=== PATIENT | female | born 1995 | race Caucasian/White ===

== ENCOUNTER 2019-11-25 11:18 | Emergency (ER) | payer BC, SELFPAY ==
--- NOTE | ~2019-11-25 | US_ITS ---
US abdomen complete EXAMINATION: US Abdomen Complete INDICATION: Status post fall. Patient is . PROCEDURE: Realtime High Resolution abdomen ultrasound. COMPARISON: No prior studies for comparison FINDINGS: Gallbladder within normal limits. No gallstones, pericholecystic fluid, gallbladder wall t hickening or biliary dilatation. Common bile duct measures 4 mm. Liver echotexture within normal limits without focal mass. Pancreas within normal limits. Pancreati c tail is obscured by bowel gas. Spleen is unremarkeable. Renal echotexture is within normal limits bilaterally without hydronephrosis, contour deforming mass or renal stone. Right kidney measures 10.8 cm. Left kidney measures 11.5 cm. Visualized aspects of the aorta and IVC are within normal limits. Portal vein is patent. No sonograph ic Wells's sign indicated by the technologist. IMPRESSION: 1: Normal abdominal ultrasound. Reviewed, dictated and finalized at location B.
--- NOTE | ~2019-11-25 | US_ITS ---
US OB transvaginal 11/25/2019 15:00 Indication: Status post fall. Confirm . Procedure: High-resolution Limited early obstetrical ultrasound using transabdominal and transvaginal technique Comparison: 06/09/2017 Findings: Uterus measures 9 x 7.4 x 4.4 cm. No intrauterine is identified. Endometrium ivania ures 12 mm. There are follicular changes in the ovaries. No free fluid. Right ovary measures 2.7 x 1. 3 x 1.3 cm. Left ovary measures 2.6 x 2.6 x 3.3 cm. Impression: 1: Unremarkable pelvic ultrasound. No evidence for intrauterine . If there is a positive pre gnancy test, considerations include very early intrauterine , failed and ectopic p regnancy. Recommend follow-up with serial quantitative beta-hCG levels and ultrasound as clinically i ndicated. Reviewed, dictated and finalized at location B. Impression: 1: Unremarkable pelvic ultrasound. No evidence for intrauterine . If t here is a positive test, considerations include very early intrauteri ne , failed and ectopic . Recommend follow-up with serial quantitative beta-hCG levels and ultrasound as clinically indicated.
[2019-11-25 11:23] VITALS: BP 123/72; PULSE 76; RESP 18; TEMP 36.1; O2SAT 99
--- NOTE | 2019-11-25 11:41 | PC.NURSE ---
PT AMBULATED TO BATHROOM WITHOUT ASSISTANCE TO PROVIDE UA.
[2019-11-25 12:09] LABS: Add Urine Microscopic? YES; Appearance Urine Cloudy (Clear); Bacteria Urine Trace /hpf; Bilirubin Urine Negative (Negative); Blood Urine Negative (Negative); Color Urine Yellow (Yellow); Glucose Urine UA Negative (Negative); Ketones Urine Trace mg/dL (Negative); Leukocyte Esterase Ur 1+ LEU/UL (Negative); Mucus Urine Rare /lpf; Nitrate Urine Negative (Negative); Protein Urine Negative (Negative); RBC Urine 0-2 /hpf (0-2); Specific Grav Ur 1.018 (1.001-1.035); Squamous Epithelial Cell Urine Many /hpf (Few); WBC Urine 21-30 /hpf
--- NOTE | 2019-11-25 13:23 | PC.NURSE ---
TECHS ATTEMPTED BLOOD DRAW WITHOUT SUCCESS. PT NOW IN ULTRASOUND, WILL ATTEMPT LAB DRAW UPON RETURN.
--- NOTE | 2019-11-25 13:48 | PC.NURSE ---
PT STILL IN ULTRASOUND AT THIS TIME, WILL OBTAIN BLOOD UPON HER RETURN.
--- NOTE | 2019-11-25 14:16 | PC.NURSE ---
STILL IN ULTRASOUND
--- NOTE | 2019-11-25 14:39 | PC.NURSE ---
PT STILL IN ULTRASOUND
--- NOTE | 2019-11-25 14:52 | PC.NURSE ---
I STUCK PT TWICE FOR BLOOD DRAW ATTEMPT, WITHOUT SUCCESS, SERAFIN LAINEZ AT BEDSIDE TO ATTEMPT.
--- NOTE | 2019-11-25 15:00 | PC.NURSE ---
PT REFUSING IV UNTIL MEDICATION IS NECESSARY
[2019-11-25 15:06] LABS: Basophils Percent Auto 0.3 % (0.2-1.2); Eosinophils Absolute Auto 0.1 K/mm3 (0-0.3); Hematocrit 40.2 % (37.0-47.0); Hemoglobin 13.7 g/dL (12.0-15.0); Immature Granulocyte Absolute 0.03 K/mm3 (0.00-0.031); Immature Granulocyte Percent A 0.3 % (0-0.5); Lymphocytes Absolute Auto 1.98 K/mm3 (0.9-3.2); Lymphocytes Percent Auto 21.9 % (18.3-44.2); Mean Corpuscular HGB Conc 34.1 g/dl (32-36); Mean Corpuscular Hemoglobin 30.7 pg (26-34); Mean Corpuscular Volume 90.1 fl (80-100); Mean Platelet Volume 11.4 fl (7.4-10.4); Monocytes Absolute Auto 0.7 K/mm3 (0.1-0.6); Monocytes Percent Auto 7.4 % (2.6-8.5); Neutrophils Absolute Auto 6.2 K/mm3 (1.3-6.7); Neutrophils Percent Auto 69.1 % (45.5-73.1); Platelet Count Result 179 k/mm3 (150-375); Red Blood Count 4.46 M/mm3 (4.2-5.4); Red Cell Distribution Width 13.1 % (11.5-14.5)
[2019-11-25 15:07] VITALS: BP 127/75; PULSE 78; RESP 16; O2SAT 100
[2019-11-25 15:18] LABS: Alanine Aminotransferase 25 U/L (4-35); Albumin Level 4.1 g/dL (3.5-5.1); Alkaline Phosphatase 43 U/L (38-126); Anion Gap 8 mmol/L (8-16); Aspartate Amino Transferase 26 U/L (14-36); Bilirubin,Total 0.3 mg/dL (0.2-1.3); Blood Urea Nitrogen 7 mg/dL (7-17); Calcium 8.6 mg/dL (8.4-10.2); Carbon Dioxide 21 mmol/L (22-30); Chloride 107 mmol/L (98-107); Estimated CRCL calculation 125 ml/min; Estimated Glomerular Filt Rate > 60; Glucose 99 mg/dL (65-105); Potassium 3.7 mmol/L (3.4-5.0); Sodium 136 mmol/L (137-145)
--- NOTE | 2019-11-25 15:26 | ED.FALL ---
HPI - Fall General Chief Complaint: Fall Stated Complaint: fell down stairs/possibly pregant/cramping Time Seen by Provider: 11/25/19 11:37 Source: patient Mode of arrival: ambulatory Limitations: no limitations History of Present Illness HPI Narrative: Patient with positive home test presents after tripping while walking her dog earlier falling down 8 steps. Patient states that she landed on her abdomen and has diffuse abdominal discomfort along with pelvic cramping. Patient denies any vaginal bleeding issues with urinating but states that she had a positive home test and is unsure how far along she may be due to abnormal menstrual periods. Patient denies head impact, headache, neck pain, back pain, loss of consciousness, nausea, vomiting, diarrhea, chest pain, shortness of breath. Patient denies any other areas of discomfort or symptoms. Patient states that she is G7, P4. She reports 4 miscarriages and 3 live births. Related Data Allergies Allergy/AdvReac Type Severity Reaction Status Date / Time codeine Allergy Severe Dyspnea / Verified 11/25/19 11:26 SOB Review of Systems Review of Systems: Narrative: CONSTITUTIONAL: Denies fever, chills, or sweats. EYES: Denies visual changes, redness, or discharge. ENT: Denies rhinorrhea, congestion, sore throat, or otalgia. CARDIOVASCULAR: Denies chest pain, palpitations, or edema. RESPIRATORY: Denies cough or dyspnea. GASTROINTESTINAL: Reports abdominal pain, denies nausea, vomiting, or diarrhea. GENITOURINARY: Denies dysuria or hematuria. SKIN: Denies rash or itching. MUSCULOSKELETAL: Denies back pain, joint pain, or myalgia. NEUROLOGIC: Denies headache, numbness, dizziness, or weakness. PSYCHIATRIC: Denies anxiety or depression. [facility] Past Medical History Medical History (Updated 11/25/19 @ 15:37 by Deborah Roy PA-C) Epilepsy with status epilepticus, not intractable Family History Family History (Updated 12/12/18 @ 15:06 by DOCTOR UNKNOWN) Other Family history of malignant neoplasm of breast Social History Social History Gender identity (if verbalized by the patient): Female Exam Narrative: Exam Narrative: GENERAL: Well-appearing, well-nourished, and in no acute distress. HEAD: Normocephalic, atraumatic. No outward signs of injury noted. EYES: PERRLA and EOMI. ENT: Nares clear, no rhinorrhea or epistaxis. Mucous membranes moist. Oropharynx without tonsillar hypertrophy exudate or other lesions. Bilateral TMs pearly oconnor nonbulging NECK: Supple. No adenopathy or masses. Range of motion intact without pain or signs of injury CHEST: Clear to auscultation. No respiratory distress. No wheezes rales or rhonchi HEART: Regular rate and rhythm. ABDOMEN: Soft, diffusely tender to abdomen especially lower abdominal area over bladder. nondistended, normal active bowel sounds. No abrasions or ecchymosis noted. EXTREMITIES: Normal range of motion. No edema. SKIN: Warm, dry, no rash. NEURO: No focal deficits. Alert and oriented x3. PSYCH: Normal mood and affect. Course Vital Signs Vital signs: Vital Signs Temperature 97.0 F L 11/25/19 11:23 Pulse Rate 76 11/25/19 11:23 Respiratory Rate 18 11/25/19 11:23 Blood Pressure 123/72 11/25/19 11:23 Pulse Oximetry 99 11/25/19 11:23 Temperature 97.0 F L 11/25/19 11:23 Pulse Rate 75 11/25/19 15:39 Respiratory Rate 16 11/25/19 15:39 Blood Pressure 119/68 11/25/19 15:39 Pulse Oximetry 100 11/25/19 15:39 MDM - Fall MDM Narrative Medical decision making narrative: Patient not had any vaginal bleeding and has urinated without difficulty. Patient does not have any signs of discomfort or distress while being in the ER. Patient noted to show positive for however her ultrasound did not show which could mean early or failed . Patient instructed to follow-up with her KNITTER MACHINE for repeat beta hCGs and follow-up ultrasound to determine
[2019-11-25 15:39] VITALS: BP 119/68; PULSE 75; RESP 16; O2SAT 100
== END 2019-11-25 15:39 | disposition home or self-care (01) ==
PROVIDERS: Physician Assistant; Emergency Provider Emergency Medicine; PCP Internal Medicine
DX: O23.41 Unspecified infection of urinary tract in pregnancy, first trimester (principal); W10.9XXA Fall (on) (from) unspecified stairs and steps, initial encounter; Z3A.00 Weeks of gestation of pregnancy not specified
CPT/HCPCS: 36415; 76700; 76817; 80053; 81001; 81025; 84702; 85025; 87077; 87086; 87088; 99284

== ENCOUNTER 2020-02-21 20:11 | Emergency (ER) | payer BC, SELFPAY ==
[2020-02-21 20:14] VITALS: BP 114/54; PULSE 97; RESP 17; TEMP 36.4; O2SAT 98
--- NOTE | 2020-02-21 20:22 | ED.SEIZURE ---
HPI - Seizure General Chief Complaint: Seizure Stated Complaint: seizure/17 weeks Time Seen by Provider: 02/21/20 20:22 Source: patient and EMS Mode of arrival: EMS Limitations: no limitations History of Present Illness HPI Narrative: Patient is a 24-year-old female, TPAL [id number], who presents for evaluation of seizure. Patient has a history of tonic-clonic seizures, has followed with Dr. Aj with neurology typically is on Depakote but discontinued it when she became . Patient is currently 17 weeks , this has otherwise been uncomplicated however she has not been able to establish care with a maternal- medicine doctor. In the past she has seen MFM at [place]. Patient reports that she had a tonic-clonic seizure while working this evening. There was urinary incontinence with the seizure, no tongue biting. Patient was postictal but is currently back to baseline. She reports mild, lower abdominal cramping. She denies vaginal bleeding or loss of fluids. Patient is currently not taking any antiepileptic medications. Patient has [facility] at [facility] in [place]. Related Data Allergies Allergy/AdvReac Type Severity Reaction Status Date / Time codeine Allergy Severe Dyspnea / Verified 02/21/20 20:14 SOB Review of Systems Review of Systems: Narrative: CONSTITUTIONAL: Denies fever, chills, or sweats. EYES: Denies visual changes ENT: Denies rhinorrhea, congestion, sore throat, or otalgia. CARDIOVASCULAR: Denies chest pain, palpitations, or edema. RESPIRATORY: Denies cough or dyspnea. GASTROINTESTINAL: Reports lower abdominal pain, denies nausea or vomiting GENITOURINARY: Denies dysuria or hematuria. SKIN: Denies rash or itching. MUSCULOSKELETAL: Denies back pain, joint pain, or myalgia. NEUROLOGIC: Denies headache, numbness, or weakness. [facility] Past Medical History Medical History (Updated 02/21/20 @ 23:23 by Alona Kaiser MD) Epilepsy with status epilepticus, not intractable Miscarriage Post-traumatic stress disorder, chronic Family History Family History (Updated 12/12/18 @ 15:06 by DOCTOR UNKNOWN) Other Family history of malignant neoplasm of breast Social History Social History (Updated 02/21/20 @ 20:44 by Alona Kaiser MD) Smoking status: Never smoker Alcohol intake: never Substance use: never Living arrangements: with family Gender identity (if verbalized by the patient): Female Exam Narrative: Exam Narrative: GENERAL: Awake, alert, conversant HEAD: Normocephalic, atraumatic. EYES: PERRLA and EOMI. ENT: Nares clear, no rhinorrhea or epistaxis. Mucous membranes moist. No tongue laceration. NECK: Supple. CHEST: No respiratory distress, breathing even and non labored HEART: Regular rate, sinus rhythm ABDOMEN:Non distended, non tender EXTREMITIES: Normal range of motion. No edema. SKIN: Warm, dry, no rash. NEURO:No focal deficits. Alert and oriented x3 Course Vital Signs Vital signs: Vital Signs Temperature 36.4 C 02/21/20 20:14 Pulse Rate 97 02/21/20 20:14 Respiratory Rate 17 02/21/20 20:14 Blood Pressure 114/54 L 02/21/20 20:14 Pulse Oximetry 98 02/21/20 20:14 Temperature 36.4 C 02/21/20 20:14 Pulse Rate 62 02/21/20 23:19 Respiratory Rate 18 02/21/20 23:19 Blood Pressure 100/55 L 02/21/20 23:19 Pulse Oximetry 100 02/21/20 23:19 MDM - Seizure MDM Narrative Medical decision making narrative: Patient has a history of known seizure disorder presented after tonic-clonic seizure and is back to baseline, alert and oriented without any neurological deficits or evidence of trauma on exam. Patient feels well. She was reporting some mild lower abdominal pain without nausea, vomiting, no loss of fluids or vaginal bleeding. Patient does not feel movement at this point given she is only 17 weeks. No vaginal discharge. Patient had discontinued her antiepileptic of Depakote given pregnan
--- NOTE | 2020-02-21 20:23 | ECG_ITS ---
Measurements Intervals [place] Rate: 79 P: 127 AK: 164 QRS: 120 QRSD: 77 T: 145 QT: 371 QTc: 427 Interpretive Statements SINUS RHYTHM ARM LEADS REVERSED MINIMAL Q WAVES- ANTEROLAT/INF LEADS BASELINE ARTIFACT- V5 ATYPICAL ECG Electronically Signed On 02-22-2020 9:19:10 FOOD SERVICE ORDER CLERK by Javier Patrick D.O.
[2020-02-21 20:42] LABS: Basophils Percent Auto 0.2 % (0.2-1.2); Eosinophils Absolute Auto 0.1 K/mm3 (0-0.3); Eosinophils Percent Auto 0.9 % (0-4.4); Hematocrit 38.2 % (37.0-47.0); Hemoglobin 13.1 g/dL (12.0-15.0); Immature Granulocyte Absolute 0.03 K/mm3 (0.00-0.031); Immature Granulocyte Percent A 0.4 % (0-0.5); Lymphocytes Absolute Auto 1.73 K/mm3 (0.9-3.2); Lymphocytes Percent Auto 20.5 % (18.3-44.2); Mean Corpuscular HGB Conc 34.3 g/dl (32-36); Mean Corpuscular Hemoglobin 30.3 pg (26-34); Mean Corpuscular Volume 88.2 fl (80-100); Mean Platelet Volume 11.4 fl (7.4-10.4); Monocytes Absolute Auto 0.5 K/mm3 (0.1-0.6); Monocytes Percent Auto 6.3 % (2.6-8.5); Neutrophils Percent Auto 71.7 % (45.5-73.1); Platelet Count Result 163 k/mm3 (150-375); Red Blood Count 4.33 M/mm3 (4.2-5.4); Red Cell Distribution Width 12.9 % (11.5-14.5); White Blood Count 8.4 K/mm3 (4.5-10.0)
[2020-02-21 20:55] LABS: Alanine Aminotransferase 17 U/L (4-35); Albumin Level 4.1 g/dL (3.5-5.1); Alkaline Phosphatase 44 U/L (38-126); Anion Gap 14 mmol/L (8-16); Aspartate Amino Transferase 23 U/L (14-36); Bilirubin,Total 0.3 mg/dL (0.2-1.3); Blood Urea Nitrogen 8 mg/dL (7-17); Calcium 9.1 mg/dL (8.4-10.2); Carbon Dioxide 18 mmol/L (22-30); Chloride 106 mmol/L (98-107); Estimated CRCL calculation 106 ml/min; Estimated Glomerular Filt Rate > 60; Glucose 78 mg/dL (65-105); Potassium 3.5 mmol/L (3.4-5.0); Sodium 138 mmol/L (137-145)
[2020-02-21 22:36] VITALS: BP 124/76; PULSE 75; RESP 17; O2SAT 97
[2020-02-21] MEDS: SODIUM CHLORIDE 0.9% IV 1,000 ML 999 ML IV CONT (22:36)
[2020-02-21] MEDS: levETIRAcetam 1000MG/NACL100ML 1,000 MG/100 ML BAG 400 MG IVPB (22:36)
[2020-02-21 23:07] LABS: Add Urine Microscopic? YES; Appearance Urine Clear (Clear); Bilirubin Urine Negative (Negative); Color Urine Yellow (Yellow); Glucose Urine UA Negative (Negative); Ketones Urine Trace mg/dL (Negative); Leukocyte Esterase Ur Trace LEU/UL (Negative); Mucus Urine Rare /lpf; Nitrate Urine Negative (Negative); Protein Urine Negative (Negative); Squamous Epithelial Cell Urine Many /hpf (Few); Urobilinogen Urine Negative mg/dL (<2.0)
[2020-02-21 23:17] LABS: Blood Urine Negative (Negative)
[2020-02-21 23:19] VITALS: BP 100/55; PULSE 62; RESP 18; O2SAT 100
[2020-02-21 23:38] VITALS: BP 100/55; PULSE 74; RESP 18; O2SAT 100
== END 2020-02-21 23:40 | disposition home or self-care (01) ==
PROVIDERS: Emergency Provider Emergency Medicine
DX: O99.352 Diseases of the nervous system complicating pregnancy, second trimester (principal); Z3A.17 17 weeks gestation of pregnancy; G40.909 Epilepsy, unspecified, not intractable, without status epilepticus; O23.92 Unspecified genitourinary tract infection in pregnancy, second trimester
CPT/HCPCS: 36415; 80053; 81001; 85025; 87077; 87086; 87088; 93005; 96365; 99284; J1953; J7030

== ENCOUNTER 2020-05-17 18:20 | Observation (INO) | payer BC, SELFPAY ==
[2020-05-17] VITALS (9 sets, daily range): BP systolic 100–122; BP diastolic 43–83; PULSE 64–77; BMI 25.0
[2020-05-17 19:24] LABS: Add Urine Microscopic? YES; Appearance Urine Cloudy (Clear); Bacteria Urine Trace /hpf; Bilirubin Urine Negative (Negative); Blood Urine 2+ (Negative); Color Urine Yellow (Yellow); Glucose Urine UA Negative (Negative); Ketones Urine Negative (Negative); Leukocyte Esterase Ur 2+ LEU/UL (Negative); Mucus Urine Rare /lpf; Nitrate Urine Negative (Negative); Protein Urine 2+ mg/dL (Negative); RBC Urine >75 /hpf (0-2); Specific Grav Ur 1.018 (1.001-1.035); Squamous Epithelial Cell Urine Many /hpf (Few); Transitional Epi Cells Urine Rare /hpf (None Seen); Urobilinogen Urine Negative mg/dL (<2.0); WBC Urine 51-75 /hpf
[2020-05-17] MEDS: NIFEdipine 10 MG CAPSULE PO (20:07)
[2020-05-17] MEDS: NITROFURANTOIN MONOHYD MACROCR 100 MG CAP PO (20:08)
--- NOTE | 2020-05-31 11:31 | P.PNOB_ITS ---
OB - Triage/Final Diagnosis Visit Information Comments/Additional reasons for admission: I have assessed the risk for this patient, Liseth Singh, and determined that she would benefit from observation care. Evaluation Laboratory results: Laboratory Tests 05/17/20 18:57 Urine Color Yellow Urine Appearance Cloudy H Urine pH 7.0 Ur Specific [place] 1.018 Urine Protein 2+ H Urine Glucose (UA) Negative Urine Ketones Negative Ur Blood (Man) 2+ H Urine Nitrate Negative Urine Bilirubin Negative Urine Urobilinogen Negative Leukocyte Esterase Rfl 2+ H Urine RBC >75 H Urine WBC 51-75 H Ur Squamous Epith Cells Many H Ur Transition Epith Cell Rare Urine Bacteria Trace Urine Mucus Rare Final Diagnosis (1) False labor: Code(s): O47.9 - False labor, unspecified Status: Acute
== END 2020-05-17 21:30 | disposition home or self-care (01) ==
PROVIDERS: Advanced Practice Midwife; Admitting Provider Obstetrics & Gynecology; Visit Provider Obstetrics & Gynecology
DX: O47.03 False labor before 37 completed weeks of gestation, third trimester (principal); Z3A.29 29 weeks gestation of pregnancy
CPT/HCPCS: 81001; 87077; 87086; 87088; A9270; G0378; G0379

== ENCOUNTER 2020-07-09 23:21 | Observation (INO) | payer BC, SELFPAY ==
[2020-07-09 23:27] VITALS: BP 120/73; PULSE 85
[2020-07-09 23:42] VITALS: BMI 25.7
[2020-07-10] VITALS: BP 123/69; PULSE 86
--- NOTE | 2020-07-10 00:07 | OBADM ---
This patient, Liseth Singh, admitted to the OB room OB Post 117 for observation. Patient/family oriented to hospital policies and general routines including ID bracelet, bed and alarms, visiting hours, pain management, procedures, bathroom and other care routines, personal items, smoking policy, room service/diet, and visiting hours. Patient/Family are encouraged to report perceived risks to care and to ask questions if they do not understand what they are told or what they should do.
[2020-07-10 00:12] LABS: Add Urine Microscopic? YES; Appearance Urine Cloudy (Clear); Bacteria Urine 2+ /hpf; Bilirubin Urine Negative (Negative); Blood Urine 1+ (Negative); Color Urine Yellow (Yellow); Glucose Urine UA Negative (Negative); Ketones Urine Trace mg/dL (Negative); Leukocyte Esterase Ur Trace LEU/UL (Negative); Mucus Urine Moderate /lpf; Nitrate Urine Negative (Negative); Protein Urine 3+ mg/dL (Negative); RBC Urine >75 /hpf (0-2); Specific Grav Ur 1.023 (1.001-1.035); Squamous Epithelial Cell Urine Many /hpf (Few); WBC Urine 21-30 /hpf
[2020-07-10 00:39] VITALS: RESP 18; TEMP 36.3
[2020-07-10 01:00] VITALS: BP 117/70; PULSE 74
[2020-07-10 02:00] VITALS: BP 117/60; PULSE 72
[2020-07-10 03:00] VITALS: BP 110/58; PULSE 70
--- NOTE | 2020-07-14 19:02 | PM.OBTRLD ---
OB - Triage/Final Diagnosis Visit Information Comments/Additional reasons for admission: I have assessed the risk for this patient, Liseth Singh, and determined that she would benefit from observation care. Evaluation Laboratory results: Laboratory Tests 07/09/20 07/09/20 23:48 23:48 Urine Color Yellow Urine Appearance Cloudy H Urine pH 7.0 Ur Specific [place] 1.023 Urine Protein 3+ H Urine Glucose (UA) Negative Urine Ketones Trace Ur Blood (Man) 1+ H Urine Nitrate Negative Urine Bilirubin Negative Urine Urobilinogen 2.0 H Leukocyte Esterase Rfl Trace H Urine RBC >75 H Urine WBC 21-30 H Ur Squamous Epith Cells Many H Urine Bacteria 2+ H Urine Mucus Moderate H KB Hemoglobin Negative Final Diagnosis (1) Abdominal pain during : Code(s): O26.899 - Other specified related conditions, unspecified trimester; R10.9 - Unspecified abdominal pain Status: Acute
== END 2020-07-10 03:28 | disposition home or self-care (01) ==
PROVIDERS: Admitting Provider Obstetrics & Gynecology; PCP Internal Medicine; Visit Provider Obstetrics & Gynecology
DX: O26.893 Other specified pregnancy related conditions, third trimester (principal); R10.9 Unspecified abdominal pain; Z3A.37 37 weeks gestation of pregnancy
CPT/HCPCS: 36415; 81001; 84112; 85460; 87077; 87086; 87088; G0378; G0379

== ENCOUNTER 2020-07-15 15:25 | Inpatient (IN) | payer BC, SELFPAY ==
[2020-07-15] VITALS (9 sets, daily range): BP systolic 121–134; BP diastolic 59–84; PULSE 56–76; RESP 14; TEMP 36.9; BMI 25.3
[2020-07-15] MEDS: OXYTOCIN 30 UNITS/NS 500 ML 30 UNITS/500 ML BAG 999 UNITS IV CONT (15:51)
--- NOTE | 2020-07-15 16:08 | PM.IMHP ---
H&P: HPI History of Present Illness Date/Time: 07/15/20 16:08 Liseth is a 25yo now [id number] who presented via ambulance after delivering her daughter at home. She reports contractions last night, but that they went away; she began having strong contractions @ 1330. She delivered her daughter in the bath tub @ 1445. Ambulance was there with in a couple minutes and called 10 min 9. She presented with the placenta in situ, minimal bleeding. She had been receiving care with M @ [facility], but we have no available records. She reports no complications this besides the seizure d/o. Her is complicated by (per pt): - seizure d/o, last Feb 2020-- on Keppra 1500mg BID - H/o PTD - Mild intermittent asthma; albuterol PRN - Tobacco abuse; ~1/2ppd occasionally - H/o PPH w/ third delivery, necessitating blood transfusion Chief Complaint: vaginal delivery at home Review of Systems Review of Systems: All systems reviewed & are unremarkable except as noted in HPI and below (HPI) [facility] Past Medical History Medical History (Updated 07/15/20 @ 16:27 by Tegan Alexandra MD) Epilepsy with status epilepticus, not intractable Miscarriage Post-traumatic stress disorder, chronic Family History Family History (Updated 12/12/18 @ 15:06 by DOCTOR UNKNOWN) Other Family history of malignant neoplasm of breast Social History Social History (Updated 02/21/20 @ 20:44 by Alona Kaiser MD) Smoking status: Never smoker Alcohol intake: never Substance use: never Gender identity (if verbalized by the patient): Female Meds Home Medications and Allergies Home Medications Medication Instructions Recorded Confirmed Type levetiracetam [Keppra] 1,500 mg PO BID 05/17/20 07/10/20 History Allergies Allergy/AdvReac Type Severity Reaction Status Date / Time codeine Allergy Severe Dyspnea / Verified 02/21/20 20:14 SOB Exam Const: General: cooperative, healthy appearing, comfortable and no acute distress Resp: Effort & Inspection: normal respiratory effort and able to speak in complete sentences Cardio: Rate: regular rate GI: Inspection: normal to inspection GI Palp: No abdominal tenderness and Yes Soft to palpation : Other: ~15cc of blood; umbilical cord w/ clamp in vagina; placenta in situ Skin: General skin exam: normal color Neuro: General: patient oriented x3 Extrem: General: normal to inspection Psych: Appearance: grossly normal Affect: normal affect Assessment and Plan Assessment and plan (1) Normal spontaneous vaginal delivery: Code(s): O80 - Encounter for full-term uncomplicated delivery Status: Acute Additional Plan - admitted to L&D; labs obtained, IV started and pitocin given- placenta delivered w/o issue - baby vigorous and crying; pedi at bedside
[2020-07-15 16:11] LABS: Basophils Percent Auto 0.2 % (0.2-1.2); Eosinophils Absolute Auto 0.1 K/mm3 (0-0.3); Eosinophils Percent Auto 0.7 % (0-4.4); Hematocrit 37.6 % (37.0-47.0); Hemoglobin 12.2 g/dL (12.0-15.0); Immature Granulocyte Absolute 0.06 K/mm3 (0.00-0.031); Immature Granulocyte Percent A 0.4 % (0-0.5); Lymphocytes Absolute Auto 1.54 K/mm3 (0.9-3.2); Lymphocytes Percent Auto 11.4 % (18.3-44.2); Mean Corpuscular HGB Conc 32.4 g/dl (32-36); Mean Corpuscular Hemoglobin 27.9 pg (26-34); Mean Platelet Volume 12.6 fl (7.4-10.4); Monocytes Absolute Auto 0.8 K/mm3 (0.1-0.6); Neutrophils Absolute Auto 10.9 K/mm3 (1.3-6.7); Neutrophils Percent Auto 81.3 % (45.5-73.1); Platelet Count Result 159 k/mm3 (150-375); Red Blood Count 4.37 M/mm3 (4.2-5.4); White Blood Count 13.5 K/mm3 (4.5-10.0)
[2020-07-15] MEDS: ONDANSETRON INJ 4 MG/2 ML VIAL IV PUSH (16:13)
--- NOTE | 2020-07-15 16:22 | LDADM ---
This patient, Liseth Singh, was admitted to Labor/Delivery/Recovery 105 on 07/15/20 at 15:25. Plans for labor, pain management and were discussed with patient. Patient/family oriented to hospital policies and general routines including ID bracelet, bed and alarms, visiting hours, pain management, procedures, bathroom and other care routines, personal items, smoking policy, room service/diet and guest tray routines, security routines, and visiting hours. Patient/Family are encouraged to report perceived risks to care and to ask questions if they do not understand what they are told or what they should do. See OBIX for further documentation.
--- NOTE | 2020-07-15 16:30 | WPDHPUPDATE1 ---
History and Physical Update Update Date/Time: 07/15/20 16:30 History and Physical has been reviewed, including an updated exam of the patient. There are NO changes in the patient's condition. Risks, benefits, and alternatives have been discussed and questions answered. Patient agrees to proceed with procedure.
--- NOTE | 2020-07-15 16:30 | PM.OBPRVD ---
OB - Delivery Note Procedure Delivery date: 07/15/20 Intrapartal events: Born Out of Hospital Induction method: none Delivery monitor: none Route of delivery: Laceration Description: None Quantitative Blood Loss (ml): 212 Anesthesia type: None Disposition: floor Baby Date of : 07/15/20 Time of : 14:45 Weeks of gestation at delivery: 37 Infant gender: Female Weight (pounds): 6 Weight (ounces): 13 presentation: unknown Placenta delivery description: Expressed and Delivery of Placenta Only score ten minutes: 9 Narrative: The patient presented via ambulance after delivering her daughter at home. The was vigorous and had a good cry. The placenta was in situ with an umbilical cord clamp. Minimal bleeding was noted. Once an IV was obtained, Pitocin infusion was started. With fundal massage and gentle downward traction on the umbilical cord, the placenta delivered intact without complications. Minimal bleeding was note. Good uterine tone was palpated. The vagina and perineum were examined and no lacerations were noted. Fundal massage was performed and a small amount of clots were removed, no further bleeding was noted. Good fundal tone was palpated. The patient was cleaned. Mom and baby were left in the birthing suite in a stable condition.
[2020-07-15] MEDS: OXYTOCIN 30 UNITS/NS 500 ML 30 UNITS/500 ML BAG 125 UNITS IV CONT (16:34)
[2020-07-15] MEDS: CALCIUM CARBONATE (TUMS) 500 MG (200 MG ELEMENTAL) PO (16:38)
[2020-07-15 17:01] LABS: HIV 1/2 Ab P24 Ag Result Negative (Negative)
[2020-07-15] MEDS: WITCH HAZEL 40 PADS 1 PAD TOPICAL (17:20)
--- NOTE | 2020-07-15 18:27 | OBPPTRN ---
Addendum entered by Gypsy Johnson RN 07/15/20 23:09: Room 279 in wheelchair with in crib. Original Note: Patient transferred to post room #279 via ( ). Support person present. Oriented to unit, room, information board, rooming in, admission packet and security measures. Patient verbalizes understanding.
[2020-07-15] MEDS: levETIRAcetam 500 MG TABLET 1500 MG PO (22:32)
[2020-07-16 00:10] VITALS: BP 110/65; PULSE 72; RESP 15; TEMP 37.1
[2020-07-16 05:10] VITALS: BP 108/73; PULSE 51; RESP 16; TEMP 36.8
[2020-07-16 05:48] LABS: Hemoglobin 10.7 g/dL (12.0-15.0)
[2020-07-16 07:01] LABS: Rapid Plasma Reagin Non-Reactive (NonReactive)
[2020-07-16 08:10] VITALS: BP 99/62; PULSE 60; RESP 16; TEMP 36.6; O2SAT 99
[2020-07-16] MEDS: MULTIVIT/MIN/PREN/FOL AC/IRON TABLET 1 TAB PO (09:50)
[2020-07-16] MEDS: levETIRAcetam 500 MG TABLET 1500 MG PO ×2 (09:50→17:25)
--- NOTE | 2020-07-16 11:50 | PC.NURSE ---
Consult with pt., mother reports this to be 4th child to breastfeed. Observed mother is able to independently latch with appropriate positioning/alignment using cross cradle. Infant eagerly latches on first attempt with long rhythmical draws and freq swallowing noted. She denies any nipple discomfort, is feeding as required and waking infant to feed if needed. Infant is currently meeting outcomes for weight, output, jaundice and feeding frequencies. Mother states she feels confident to continue effective at home. Reviewed transition to breast milk, signs of adequate intake, and engorgement/relief. Instructed to call ICP if intake/output less than required. Reviewed regular medications mother is taking. Information provided per Karissa. Reviewed community resources on the [facility] website and in the Mom/Baby guide. Information on outpatient services provided. Mother has no further questions at this time.
[2020-07-16 11:59] VITALS: BP 104/57; PULSE 58; RESP 16; TEMP 36.9; O2SAT 100
--- NOTE | 2020-07-16 13:35 | PM.OBPNVD ---
OB - PN: Subj Subjective Date/time seen: 07/16/20 13:13 PPD#1 Liseth reports doing well today. Her pain is controlled. 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 She has tolerated regular diet. She has voided and passed gas. She has ambulated around the room. She is breast feeding. She would like to go home today. She denies CP, SOB, vision changes, fever, chills, ARELLANO, N/V, palpitations or dizziness. OB - PN: Obj Data Labs CBC & Chem 7: 07/16/20 05:41 Labs: Laboratory Results - last 24 hr 07/15/20 07/15/20 07/15/20 16:03 16:03 16:03 WBC 13.5 H RBC 4.37 Hgb 12.2 Hct 37.6 MCV 86.0 MCH 27.9 MCHC 32.4 RDW 14.0 Plt Count 159 MPV 12.6 H Immature Gran % (Auto) 0.4 Neut % (Auto) 81.3 H Lymph % (Auto) 11.4 L [place] % (Auto) 6.0 Eos % (Auto) 0.7 Baso % (Auto) 0.2 Lymph # (Auto) 1.54 [place] # (Auto) 0.8 H Eos # (Auto) 0.1 Baso # (Auto) 0.0 Abs Immat Gran (auto) 0.06 H Absolute Neuts (auto) 10.9 H Absolute Nucleated RBC 0.0 Nucleated RBC % 0.0 RPR Non-reactive Chlamydia Culture HIV 1&2 Ab/P24 Ag 4thGn Blood Type A Positive Antibody Screen Negative 07/15/20 07/16/20 07/16/20 16:03 05:25 05:41 WBC RBC Hgb 10.7 L Hct 36.0 L MCV MCH MCHC RDW Plt Count MPV Immature Gran % (Auto) Neut % (Auto) Lymph % (Auto) [place] % (Auto) Eos % (Auto) Baso % (Auto) Lymph # (Auto) [place] # (Auto) Eos # (Auto) Baso # (Auto) Abs Immat Gran (auto) Absolute Neuts (auto) Absolute Nucleated RBC Nucleated RBC % RPR Chlamydia Culture Cancelled HIV 1&2 Ab/P24 Ag 4thGn Negative Blood Type Antibody Screen OB - PN A/P Assessment and Plan (1) Normal spontaneous vaginal delivery: Code(s): O80 - Encounter for full-term uncomplicated delivery Status: Acute Plan day: 1 Plan: routine care and discharge home (later today; pending GC/CT results) Comments: - F/u in 4wks; will discuss tubal at that time - ER return precautions discussed; n/v/abd pain, fever, bleeding, HTN - take meds as prescribed; pelvic rest Time Spent With Patient Time: Total time spent is greater than 50% in coordination of care (as documented) at patient's floor/unit and/or counseling patient: Review of Systems Review of Systems: All systems reviewed & are unremarkable except as noted in HPI and below (HPI) Exam Const: General: cooperative, healthy appearing, comfortable and no acute distress Resp: Effort & Inspection: normal respiratory effort and able to speak in complete sentences Auscultation: clear to auscultation bilaterally Cardio: Rate: regular rate GI: Inspection: non-distended GI Palp: No abdominal tenderness and Yes Soft to palpation Auscultation: normal bowel sounds : Other: fundus firm below umbilicus Skin: General skin exam: normal color Neuro: General: patient oriented x3 Extrem: General: normal to inspection Psych: Appearance: grossly normal Affect: normal affect Attitude: cooperative
[2020-07-16] MEDS: IBUPROFEN 600 MG TABLET PO (15:14)
--- NOTE | 2020-07-16 17:55 | PC.NURSE ---
Infant care and self care discharge instructions given including follow up visit date and time. Pt. verbalized understanding. No questions or concerns voiced. Very pleasant. Anxious for discharge.
--- NOTE | 2020-08-01 17:19 | PM.OBDSVD ---
DS: Admitting Diagnosis Admitting Diagnosis Admitting Diagnosis: Delivery at home DS: Discharge Diagnosis Discharge Diagnosis (1) Normal spontaneous vaginal delivery: Code(s): O80 - Encounter for full-term uncomplicated delivery Status: Acute OB - DS: Summary OB Procedures : Ultrasound OB Procedures Intrapartum: Other (delivered at home) OB Procedures: : None Peripartum Data Infant Delivery Method: Natural Vaginal Laceration Description: None 1: Gender: Female Disposition of : home Status at Discharge Functional status at discharge: independent ambulation Overall status at discharge: patient is back to baseline Time Spent with Patient Time attestation: Total time spent providing and/or coordinating discharge services: Exam Const: General: cooperative, healthy appearing, comfortable and no acute distress Resp: Effort & Inspection: normal respiratory effort and able to speak in complete sentences Auscultation: clear to auscultation bilaterally Cardio: Rate: regular rate GI: Inspection: normal to inspection and non-distended GI Palp: No abdominal tenderness and Yes Soft to palpation Auscultation: normal bowel sounds : Other: fundus firm Skin: General skin exam: normal color Neuro: General: patient oriented x3 Extrem: General: normal to inspection Psych: Appearance: grossly normal Affect: normal affect Attitude: cooperative DS: Data Data Completed and Pending Completed studies during hospitalization: Pending at discharge 07/15/20 15:51 Surgical [PTH] Routine Discharge Plan Discharge Attending physician on discharge: Tegan Alexandra Discharging Clinician: Tegan Alexandra Anticipated Discharge Date/Time: 07/16/20 18:00 Patient Disposition: Home, Self-Care Activity: pelvic rest Diet: regular Discharge Instructions: Education: Mom and Baby Guide Given to: Mother Follow-Up: Call your delivering provider's office for an appointment to be seen in: 4 Weeks Mom and baby should come to the [facility] for the follow-up appointment. Appointment Date/Time: Sunday, July 19, 2020 at 11:00 am What to expect at your follow-up visit: Blood Pressure Check Physical Assessment Call [phone] if you are unable to keep your appointment time. BREAST CARE: * Wear a snug supportive bra. * For engorgement discomfort: Breast Feeding: * Apply warm moist washcloths * Express milk as needed to relieve engorgement * Wear loose clothing * For sore nipples: * Identify correct latch-on * Apply warm moist washcloths before and after nursing * Air dry nipples after nursing * May apply Lansinoh cream to nipples EPISIOTOMY/PERINEAL CARE: * Until bleeding stops, use your ana paula bottle after urinating * Change your pad frequently throughout the day * You may take sitz baths several times a day (fill your bathtub with warm water and soak for 20 minutes.) Do NOT bathe in the water * No tub baths until seen by your physician - You may shower ACTIVITY: * Rest as much as possible. * Do not exercise or lift anything heavier than your baby (such as laundry or other children.) * Avoid stairs or driving as much as possible. * Do not put anything into the vagina. No douching, tampons, or sexual activity until seen by physician. NOTIFY PHYSICIAN IF YOU HAVE ANY QUESTIONS OR IF ANY OF THE FOLLOWING SYMPTOMS OCCUR: * If your episiotomy becomes red, swollen, or more painful than what you have experienced in the hospital. * If your vaginal bleeding becomes foul smelling. * If your vaginal bleeding becomes more heavy than a period or if your bleeding changes from pink to bright red. However, you may pass an occasional walnut-sized clot once or twice for the first week . * If you experience a sharp, shooting pain in you calves. * If you
== END 2020-07-16 18:34 | disposition home or self-care (01) | DRG 541 ==
LOC: ANHLDR 17:33 → ANHOB2 18:33
PROVIDERS: Admitting Provider Obstetrics & Gynecology; Visit Provider Obstetrics & Gynecology
DX: O72.0 Third-stage hemorrhage (principal); O99.355 Diseases of the nervous system complicating the puerperium; G40.909 Epilepsy, unspecified, not intractable, without status epilepticus
CPT/HCPCS: 36415; 85014; 85018; 85025; 86592; 86703; 86850; 86900; 86901; 87110; 87140; 87491; 87591; 88307; A9270; G0432; J2405; J2590

== ENCOUNTER 2021-09-29 15:47 | Emergency (ER) | payer BC, SELFPAY ==
[2021-09-29] VITALS (7 sets, daily range): BP systolic 107–126; BP diastolic 70–88; PULSE 60–92; RESP 14–20; TEMP 36.6; O2SAT 98–100
--- NOTE | ~2021-09-29 | XR_ITS ---
XR chest 2V DATE: 09/29/2021 16:20 INDICATION: Chest pain TECHNIQUE: PA and lateral views COMPARISON: 10/23/2017 portable AP chest FINDINGS: Normal heart size. No hilar or mediastinal enlargement. No pulmonary infiltrate or consolid ation, pleural effusion or pulmonary vascular congestion or pneumothorax. IMPRESSION: No active cardiopulmonary disease Reviewed, dictated and finalized at location B.
--- NOTE | 2021-09-29 15:49 | ECG_ITS ---
Measurements Intervals [place] Rate: 90 P: 38 LA: 126 QRS: 64 QRSD: 79 T: 7 QT: 392 QTc: 481 Interpretive Statements SINUS RHYTHM WITH SINUS ARRHYTHMIA BORDERLINE ST-T WAVE ABNORMALITY- ANT/INF LEADS BASELINE WANDER- V3 BORDERLINE ECG Electronically Signed On 09-29-2021 16:26:38 CDT by Javier Patrick D.O.
[2021-09-29 16:16] LABS: Basophils Percent Auto 0.3 % (0.2-1.2); Eosinophils Percent Auto 0.3 % (0-4.4); Hematocrit 39.5 % (37.0-47.0); Hemoglobin 13.9 g/dL (12.0-15.0); Immature Granulocyte Absolute 0.02 K/mm3 (0.00-0.031); Immature Granulocyte Percent A 0.1 % (0-0.5); Lymphocytes Absolute Auto 2.42 K/mm3 (0.9-3.2); Lymphocytes Percent Auto 17.4 % (18.3-44.2); Mean Corpuscular HGB Conc 35.2 g/dl (32-36); Mean Corpuscular Hemoglobin 29.4 pg (26-34); Mean Corpuscular Volume 83.7 fl (80-100); Mean Platelet Volume 11.5 fl (7.4-10.4); Monocytes Absolute Auto 1.1 K/mm3 (0.1-0.6); Monocytes Percent Auto 8.1 % (2.6-8.5); Neutrophils Absolute Auto 10.3 K/mm3 (1.3-6.7); Neutrophils Percent Auto 73.8 % (45.5-73.1); Platelet Count Result 217 k/mm3 (150-375); Red Blood Count 4.72 M/mm3 (4.2-5.4); Red Cell Distribution Width 12.8 % (11.5-14.5); White Blood Count 13.9 K/mm3 (4.5-10.0)
[2021-09-29 16:28] LABS: INR 1.2; Partial Thromboplastin Time 32.8 SECONDS (22.3-36.8); Prothrombin Time 15.1 Seconds (11.1-14.7)
[2021-09-29 16:31] LABS: Alanine Aminotransferase 36 U/L (6-35); Albumin Level 4.9 g/dL (3.5-5.1); Alkaline Phosphatase 58 U/L (38-126); Anion Gap 12 mmol/L (8-16); Aspartate Amino Transferase 44 U/L (14-36); Bilirubin,Total 1.5 mg/dL (0.2-1.3); Blood Urea Nitrogen 15 mg/dL (7-17); Calcium 9.2 mg/dL (8.4-10.2); Carbon Dioxide 20 mmol/L (22-30); Chloride 107 mmol/L (98-107); Estimated CRCL calculation 91 ml/min; Estimated Glomerular Filt Rate > 60; Glucose 92 mg/dL (65-110); Lipase 22 U/L (23-300); Potassium 2.7 mmol/L (3.4-5.0); Sodium 139 mmol/L (137-145)
[2021-09-29 16:38] LABS: Troponin I < 0.012 ng/mL (0.000-0.034)
[2021-09-29 16:57] LABS: Appearance Urine Slightly Cloudy (Clear); Bilirubin Urine 2+ (Negative); Blood Urine 2+ (Negative); Color Urine Amber (Yellow); Glucose Urine UA Negative (Negative); Ketones Urine 4+ mg/dL (Negative); Leukocyte Esterase Ur 1+ LEU/UL (Negative); Nitrate Urine Negative (Negative); Protein Urine 2+ mg/dL (Negative); Specific Grav Ur 1.025 (1.001-1.035)
[2021-09-29 17:01] LABS: Bacteria Urine Trace /hpf; Mucus Urine Heavy /lpf; RBC Urine >75 /hpf (0-2); Squamous Epithelial Cell Urine Many /hpf (Few); WBC Urine 31-50 /hpf
[2021-09-29 17:02] LABS: Add Urine Microscopic? YES
--- NOTE | 2021-09-29 17:26 | ED.CHESTPAIN ---
HPI - Chest Pain General Chief Complaint: Chest Pain Stated Complaint: chest pain Time Seen by Provider: 09/29/21 17:26 History of Present Illness HPI narrative: Patient is a 26-year-old female with a history of generalized seizures on Keppra and valproic acid, asthma here for evaluation of upper respiratory symptoms for the past 5 days. Patient states that she has had copious amounts of mucus production, which is led her to feel nauseous and also vomit whenever she swallows the mucus. Because of this, she has not eaten or drink much at all for the past several days. She is also having rhinorrhea, cough, and some chest pain. No shortness of breath, difficulty tolerating her secretions. She has taken a COVID test that has been negative. Additionally, patient has not had her valproic acid for several days because she does not like how it makes her feel, but does have plenty of refills at home. Notes that she has frequent UTIs and feels she may have one right now. Related Data Home Medications Medication Instructions Recorded Confirmed valproic acid (as sodium salt) 250 mg 09/29/21 mg/5 mL oral solution Allergies Allergy/AdvReac Type Severity Reaction Status Date / Time codeine Allergy Severe Dyspnea / Verified 09/29/21 15:50 SOB Review of Systems Review of Systems: Gen: Denies fevers or chills Eyes: Denies eye pain or visual change ENT: Reports congestion and mucus. Respiratory: Reports cough. Denies shortness of breath CV: Reports chest pain. GI: Denies abdominal pain nausea, emesis or diarrhea denies burning, urgency, frequency or hematuria Musculoskeletal: Denies back pain or muscle pain Neuro: Denies numbness, tingling, weakness or focal weakness Skin: Denies rash Except as documented, all other systems reviewed and negative [facility] Past Medical History Medical History Epilepsy with status epilepticus, not intractable Miscarriage Post-traumatic stress disorder, chronic Family History Family History (Updated 12/12/18 @ 15:06 by DOCTOR UNKNOWN) Other Family history of malignant neoplasm of breast Social History Social History (Updated 02/21/20 @ 20:44 by Alona Kaiser MD) Smoking status: Current some day smoker Tobacco type: cigarettes Second hand tobacco smoke exposure: Yes Alcohol intake: never Substance use: never Gender identity (if verbalized by the patient): Female Sexual Orientation (if Verbalized by the Patient): Straight or Heterosexual Spiritual care concerns: No Exam Narrative: APPEARANCE: Uncomfortable appearing Head: Normocephalic and atraumatic. EYES: PERRLA/EOMI, conjunctivae clear NOSE: No nasal drainage EARS: External ear normal in appearance THROAT: Mucous membranes are dry and tacky. NECK: Supple. No adenopathy, no masses. RESPIRATORY: Airway patent, respirations nonlabored. Clear to auscultation bilaterally, no rales, rhonchi, wheezing. CARDIOVASCULAR: Regular rate and rhythm without murmurs, rubs, or gallops. ABDOMINAL: Normoactive bowel sounds. Soft, nontender, nondistended. No rebound tenderness or guarding. MUSCULOSKELETAL: Extremities are warm and well-perfused. Moves all extremities well. No edema. NEURO: Normal speech. No focal neurologic deficits. SKIN: Skin is warm and dry. No rashes. PSYCHIATRIC: Normal affect/mood. Course Vital Signs Vital signs: Vital Signs Temperature 97.9 F 09/29/21 15:51 Pulse Rate 92 09/29/21 15:51 Respiratory Rate 18 09/29/21 15:51 Blood Pressure 115/70 09/29/21 15:51 Pulse Oximetry 100 09/29/21 15:51 Oxygen Delivery Room Air 09/29/21 15:51 Temperature 97.9 F 09/29/21 15:51 Pulse Rate 65 09/29/21 21:46 Respiratory Rate 14 09/29/21 19:54 Blood Pressure 117/73 09/29/21 21:46 Pulse Oximetry 98 09/29/21 19:54 Oxygen Delivery Room Air 09/29/21 19:10 MDM - Chest Pain MDM Narrative Medical
[2021-09-29] MEDS: POTASSIUM CHLORIDE 20 MEQ TABLET 40 MEQ PO (18:03)
[2021-09-29] MEDS: SODIUM CHLORIDE 0.9% IV 1,000 ML 999 ML IV CONT ×2 (18:03→19:55)
[2021-09-29 18:08] LABS: Magnesium 2.1 mg/dL (1.6-2.3); Phosphorus 2.5 mg/dL (2.5-4.5)
[2021-09-29] MEDS: POTASSIUM CHLORIDE 20 MEQ PACKET (FOR LIQUID) 40 MEQ PO (18:57)
[2021-09-29 19:03] LABS: Valproic Acid < 10.0 ug/mL (50-120)
--- NOTE | 2021-09-29 19:10 | PC.NURSE ---
Assuming care of pt.
[2021-09-29 19:36] LABS: SARS-CoV-2 RNA PCR Negative
[2021-09-29 19:36] LABS: Troponin I < 0.012 ng/mL (0.000-0.034)
[2021-09-29 21:23] LABS: Anion Gap 4 mmol/L (8-16); Blood Urea Nitrogen 14 mg/dL (7-17); Calcium 7.8 mg/dL (8.4-10.2); Carbon Dioxide 25 mmol/L (22-30); Chloride 111 mmol/L (98-107); Estimated CRCL calculation 104 ml/min; Estimated Glomerular Filt Rate > 60; Glucose 119 mg/dL (65-110); Potassium 3.3 mmol/L (3.4-5.0); Sodium 140 mmol/L (137-145)
== END 2021-09-29 22:04 | disposition home or self-care (01) ==
PROVIDERS: Physician Assistant; Emergency Provider Emergency Medicine
DX: N39.0 Urinary tract infection, site not specified (principal); E87.6 Hypokalemia; Z20.822 Contact with and (suspected) exposure to COVID-19; G40.909 Epilepsy, unspecified, not intractable, without status epilepticus; F17.210 Nicotine dependence, cigarettes, uncomplicated; R94.31 Abnormal electrocardiogram [ECG] [EKG]; R11.2 Nausea with vomiting, unspecified
CPT/HCPCS: 36415; 71046; 80048; 80053; 80164; 81001; 81025; 83690; 83735; 84100; 84484; 85025; 85610; 85730; 87077; 87086; 87088; 93005; 96360; 96361; 99284; A9270; C9803; J7030; U0003; U0005

== ENCOUNTER 2023-01-14 17:02 | Emergency (ER) | payer BC, SELFPAY ==
[2023-01-14] VITALS (14 sets, daily range): BP systolic 102–137; BP diastolic 55–91; PULSE 57–74; RESP 9–19; TEMP 36.8; O2SAT 99–100
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
[2023-01-14] MEDS: fentaNYL CITRATE INJ (*CRX) 100 MCG/2 ML VIAL 50 MCG IV PUSH (18:22)
[2023-01-14 18:31] LABS: Basophils Percent Auto 0.3 % (0.2-1.2); Eosinophils Percent Auto 0.4 % (0-4.4); Hematocrit 42.7 % (37.0-47.0); Hemoglobin 14.2 g/dL (12.0-15.0); Immature Granulocyte Absolute 0.02 K/mm3 (0.00-0.031); Immature Granulocyte Percent A 0.3 % (0-0.5); Lymphocytes Absolute Auto 2.04 K/mm3 (0.9-3.2); Lymphocytes Percent Auto 25.9 % (18.3-44.2); Mean Corpuscular HGB Conc 33.3 g/dl (32-36); Mean Corpuscular Hemoglobin 30.4 pg (26-34); Mean Corpuscular Volume 91.4 fl (80-100); Mean Platelet Volume 11.6 fl (7.4-10.4); Monocytes Absolute Auto 0.6 K/mm3 (0.1-0.6); Monocytes Percent Auto 7.2 % (2.6-8.5); Neutrophils Absolute Auto 5.2 K/mm3 (1.3-6.7); Neutrophils Percent Auto 65.9 % (45.5-73.1); Platelet Count Result 189 k/mm3 (150-375); Red Blood Count 4.67 M/mm3 (4.2-5.4); Red Cell Distribution Width 12.3 % (11.5-14.5); White Blood Count 7.9 K/mm3 (4.5-10.0)
[2023-01-14 18:41] LABS: INR 1.1; Prothrombin Time 14.5 Seconds (11.1-14.7)
[2023-01-14 18:42] LABS: Partial Thromboplastin Time 31.3 SECONDS (22.3-36.8)
[2023-01-14 18:45] LABS: Alanine Aminotransferase 19 U/L (6-35); Albumin Level 4.6 g/dL (3.5-5.1); Alkaline Phosphatase 52 U/L (38-126); Anion Gap 7 mmol/L (8-16); Aspartate Amino Transferase 23 U/L (14-36); Bilirubin,Total 0.6 mg/dL (0.2-1.3); Blood Urea Nitrogen 8 mg/dL (7-17); Calcium 9.3 mg/dL (8.4-10.2); Carbon Dioxide 27 mmol/L (22-30); Chloride 106 mmol/L (98-107); Estimated CRCL calculation 90 ml/min; Estimated Glomerular Filt Rate > 60; Glucose 98 mg/dL (65-110); Potassium 3.4 mmol/L (3.4-5.0); Sodium 140 mmol/L (137-145)
[2023-01-14] MEDS: ACETAMINOPHEN 500 MG TABLET 1000 MG PO (20:04)
[2023-01-14] MEDS: LIDO 1%/EPINEPHRINE 1:100,000 20 ML VIAL 10 ML INFILTRATE (20:06)
[2023-01-14] MEDS: LIDOCAINE, EPINEPHRINE, TETRACAINE VISCOUS SOLN 3 ML TOPICAL (21:02)
== END 2023-01-14 22:33 | disposition home or self-care (01) ==
PROVIDERS: Emergency Provider Physician Assistant
DX: S41.112A Laceration without foreign body of left upper arm, initial encounter (principal); F17.210 Nicotine dependence, cigarettes, uncomplicated; V86.56XA Driver of dirt bike or motor/cross bike injured in nontraffic accident, initial encounter
CPT/HCPCS: 36415; 70450; 71260; 72125; 72129; 72132; 73060; 73090; 74177; 80053; 81025; 85025; 85610; 85730; 96374; 99284; A9270; J3010; Q9967

== ENCOUNTER 2023-04-06 18:25 | Emergency (ER) | payer BC, SELFPAY ==
[2023-04-06] VITALS (20 sets, daily range): BP systolic 116–136; BP diastolic 59–95; PULSE 64–73; RESP 15–18; TEMP 36.8; O2SAT 93–100
--- NOTE | ~2023-04-06 | US_ITS ---
EXAMINATION: US OB <=14 wk fetus w TV DATE: 04/06/2023 21:28 INDICATION: Early . TECHNIQUE: Real-time transabdominal and transvaginal pelvic ultrasound was performed. COMPARISON: None. FINDINGS: TRANSABDOMINAL ULTRASOUND: The uterus measures 8.8 x 5.2 x 5.5 cm. TRANSVAGINAL ULTRASOUND: The endometrial complex measures 1.7 cm in thickness. There is no visible in trauterine gestational sac. The right ovary measures 3.1 x 2.0 x 3.5 cm. The left ovary measures 2.2 x 1.6 x 2.6 cm. There is normal vascular flow in the ovaries. There is no free fluid in the pelvis. IMPRESSION: 1. No visible intrauterine gestational sac, which may be normal in early . Spontaneous abor tion and ectopic are not excluded. Serial beta-hCGs are recommended. Reviewed, dictated and finalized at location E. ING CASE MANAGER IMPRESSION: 1. No visible intrauterine gestational sac, which may be normal in early pregn manuela. Spontaneous and ectopic are not excluded. Serial beta- hCGs are recommended.
[2023-04-06 19:17] LABS: Basophils Percent Auto 0.3 % (0.2-1.2); Eosinophils Percent Auto 0.2 % (0-4.4); Hematocrit 42.2 % (37.0-47.0); Hemoglobin 13.9 g/dL (12.0-15.0); Immature Granulocyte Absolute 0.04 K/mm3 (0.00-0.031); Immature Granulocyte Percent A 0.3 % (0-0.5); Lymphocytes Absolute Auto 2.29 K/mm3 (0.9-3.2); Lymphocytes Percent Auto 19.8 % (18.3-44.2); Mean Corpuscular HGB Conc 32.9 g/dl (32-36); Mean Corpuscular Hemoglobin 30.5 pg (26-34); Mean Corpuscular Volume 92.5 fl (80-100); Mean Platelet Volume 11.1 fl (7.4-10.4); Monocytes Percent Auto 8.8 % (2.6-8.5); Neutrophils Absolute Auto 8.2 K/mm3 (1.3-6.7); Neutrophils Percent Auto 70.6 % (45.5-73.1); Platelet Count Result 209 k/mm3 (150-375); Red Blood Count 4.56 M/mm3 (4.2-5.4); Red Cell Distribution Width 13.2 % (11.5-14.5); White Blood Count 11.6 K/mm3 (4.5-10.0)
[2023-04-06 19:45] LABS: Beta HCG Quantitative 162.66 mIU/ML
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
--- NOTE | 2023-04-06 21:22 | PC.NURSE ---
pt wants to avoid IV fluids at this time because they would prefer PO fluids only. provider notified and ok with this request
== END 2023-04-06 23:01 | disposition home or self-care (01) ==
PROVIDERS: Emergency Provider Emergency Medicine
DX: O26.891 Other specified pregnancy related conditions, first trimester (principal); R10.30 Lower abdominal pain, unspecified; O99.351 Diseases of the nervous system complicating pregnancy, first trimester; G40.909 Epilepsy, unspecified, not intractable, without status epilepticus; O99.331 Smoking (tobacco) complicating pregnancy, first trimester; F17.290 Nicotine dependence, other tobacco product, uncomplicated; Z3A.01 Less than 8 weeks gestation of pregnancy
CPT/HCPCS: 36415; 76801; 76817; 81025; 84702; 85025; 85461; 86850; 86900; 86901; 99284

== ENCOUNTER 2024-09-23 19:24 | Emergency (ER) | payer BC, SELFPAY ==
[2024-09-23] VITALS (9 sets, daily range): BP systolic 97–123; BP diastolic 56–75; PULSE 37–81; RESP 15–17; TEMP 36.6; O2SAT 98–100
--- NOTE | ~2024-09-23 | US_ITS ---
EXAMINATION: US OB <=14 wk fetus w TV DATE: 09/23/2024 22:22 INDICATION: Vaginal bleeding during first trimester TECHNIQUE: Real-time pelvic ultrasound utilizing both a transvaginal and transabdominal probe was pe rformed. The interpreting radiologist was not present for the study. COMPARISON: None. FINDINGS: The uterus measures 9.3 x 5.4 x 4.8 cm. The endometrial complex measures 9 mm in thickness with no di scernible intrauterine gestational sac. The right ovary isn't visualized The left ovary measures 2.6 x 1.9 x 2.2 cm. There is a 1.5 cm anecho ic follicle versus corpus luteum cyst in the left ovary. Vascular flow identified in the left ovary o n color Doppler. There is a minimal amount of likely physiologic free fluid in the pelvis. IMPRESSION: 1. No evident intrauterine gestational sac for which differential would include early, failed or ecto pic . Correlate with serial beta-hCG levels with repeat ultrasound as clinically indicated. Reviewed, dictated and finalized at location A. IMPRESSION: 1. No evident intrauterine gestational sac for which differential would include early, failed or ectopic . Correlate with serial beta-hCG levels with repeat ultrasound as clinically indicated.
--- NOTE | 2024-09-23 19:51 | ED_ITS ---
HPI - Female Genitourinary General Chief complaint: Vaginal Bleeding Stated complaint: abd pain/vag bleed with clots History of Present Illness HPI Narrative: 29-year-old female who is with history of epilepsy and asthma currently approximately 6 weeks presents to the emergency department for vaginal bleeding in . LMP 530. Patient states patient had some low back pain yesterday and notice blood when she went to the bathroom. She then developed lower abdominal pain and increased vaginal bleeding. Patient states she has passed multiple clots. Patient had a positive home test September 11. Patient sees MFM at [facility] in [place]. Pt went to [facility] in [place] yesterday for an ultrasound after contacting her OBGYN. Patient states her ultrasound yesterday showed a gestational sac with fluid, measuring approximately 4 weeks . Today she has had subjective fever, chills, n/v. She contacted her OBGYN and was advised return to the emergency department due to increase in bleeding. Patient states she is changing her pad every hour but is not fully saturating her pad every hour. Pt denies urinary complaints. Pt took Zofran and Phenergan with improvement in nausea. She took tylenol prior to arrival without improvement in pain. She is also reporting dizziness when she stands up. Denies concern for STDs. Pt has screen shot of ultrasound report from yesterday shows no sonographic evidence of ectopic . There is possible endometrial gestational sac measuring 4 weeks and 6 days, IRMA 05/15/2025. There is more than 5 days discrepancy between ultrasound dating provided clinical dating which supported 3 dating. Recommend does trending of beta-hCG and repeat imaging as clinically indicated. Related Data Home Medications ?Medication ?Instructions ?Recorded ?Confirmed ?Last Taken ?Type valproic acid (as sodium salt) 250 mg 09/29/21 Unknown History mg/5 mL oral solution Allergies Allergy/AdvReac Type Severity Reaction Status Date / Time codeine Allergy Severe Dyspnea / Verified 04/06/23 18:59 SOB Review of Systems 2 Review of Systems: All systems reviewed & are unremarkable except as noted in HPI and below PMFSH Past Medical History Medical History Miscarriage Epilepsy with status epilepticus, not intractable Post-traumatic stress disorder, chronic Family History Family History Other Family history of malignant neoplasm of breast Social History Social History Smoking status: Current some day smoker Tobacco type: cigarettes Second hand tobacco smoke exposure: Yes Alcohol intake: never Substance use: never Living arrangements: with family Gender identity (if verbalized by the patient): Female Sexual Orientation (if Verbalized by the Patient): Straight or Heterosexual Spiritual care concerns: No Exam 2 Narrative: GENERAL: Well-appearing, well-nourished, and in no acute distress. HEAD: Normocephalic, atraumatic. EYES: EOMI. ENT: Nares clear, no rhinorrhea or epistaxis. Mucous membranes moist. NECK: Supple. CHEST: Clear to auscultation. No respiratory distress. HEART: Regular rate and rhythm. No murmur heard. Normal peripheral pulses. ABDOMEN: Normoactive bowel sounds. Abdomen soft with tenderness in the suprapubic region. No rebound or rigidity. No CVA tenderness. : Chaperoned by DENG Varela: Normal external genitalia. Mild amount of blood in the vaginal vault. Cervical os is slightly open and actively bleeding. No clots visualized. No purulence. No CMT, adnexal masses or tenderness. EXTREMITIES: Normal range of motion. No edema. SKIN: Warm, dry, no rash. NEURO: No focal deficits. Alert and oriented x3 Course Vital Signs Vital signs: Vital Signs Temperature 97.9 F 09/23/24 19:27 Pulse Rate 68 09/23/24 19:27 Respiratory Rate 16 09/23/24 19:27 Blood Pressure 114/61 09/23/24 19:27 Pulse Oximetry 100 09/23/24 19:27 Oxygen Delivery Room Air 09/23/24 19:27 Temperature 97.9 F 09/23/24 19:27 Pulse Rate 68 09/24/24 01:15 Respiratory Rate 22 H 09/24/24 01:15 Blood Pressure 98/53 L 09/24/24 01:15 Pulse Oximetry 100 09/24/24 01:15 Oxygen Delivery Room Air 09/23/24 19:27 MDM - Female Genitourinary MDM Narrative Medical decision making narrative: 29-year-old female who is with history of epilepsy, currently approximately 6 weeks per LMP presents to the emergency department for vaginal bleeding in . See HPI for further history. Triage vitals are stable. Exam is significant for the above. CBC without leukocytosis. Hemoglobin is stable at 12.9. Patient is able to pull up her labs from yesterday, hemoglobin was 13.2 at that time. Chemistries are largely unremarkable. UA with 21-50 red blood cells and trace leuk esterase consistent with active vaginal bleeding. Rh type positive, RhoGAM not required. Beta hCG is 72.81 today. Patient does have records from her ER visit yesterday which revealed a beta-hCG of 157, consistent with miscarriage. Ultrasound shows IMPRESSION: 1. No evident intrauterine gestational sac for which differential would include early, failed or ectopic . Correlate with serial beta-hCG levels with repeat ultrasound as clinically indicated. Patient was given Toradol for pain control without improvement. She was then given morphine with improvement. I discussed findings with [facility] physician, Dr. Yoon, who recommends evaluation by OBGYN. Unfortunately do not have OBGYN in house. She recommends transfer to [facility]'s ED to ED for OBGYN evaluation. Discussed with ED physician, Dr. Santiago, who accepts transfer. Lab Data 09/23/24 20:58 09/23/24 20:58 Labs: Lab Results 09/23/24 Range/Units 20:58 WBC 7.3 (4.5-10.0) K/mm3 RBC 4.37 (4.2-5.4) M/mm3 Hgb 12.9 (12.0-15.0) g/dL Hct 39.1 (37.0-47.0) % MCV 89.5 (80-100) fl MCH 29.5 (26-34) pg MCHC 33.0 (32-36) g/dl RDW 13.2 (11.5-14.5) % Plt Count 190 (150-375) k/mm3 MPV 11.1 H (7.4-10.4) fl Immature Gran % (Auto) 0.3 (0-0.5) % Neut % (Auto) 54.1 (45.5-73.1) % Lymph % (Auto) 35.5 (18.3-44.2) % Dixon % (Auto) 8.1 (2.6-8.5) % Eos % (Auto) 1.6 (0-4.4) % Baso % (Auto) 0.4 (0.2-1.2) % Lymph # (Auto) 2.59 (0.9-3.2) K/mm3 Dixon # (Auto) 0.6 (0.1-0.6) K/mm3 Eos # (Auto) 0.1 (0-0.3) K/mm3 Baso # (Auto) 0.0 (0.0-0.1) K/mm3 Abs Immat Gran (auto) 0.02 (0.00-0.031) K/mm3 Absolute Neuts (auto) 4.0 (1.3-6.7) K/mm3 Absolute Nucleated RBC 0.000 (0.0-0.012) K/mm3 Nucleated RBC % 0.0 (0.0-0.2) % PT 13.4 (11.1-14.7) Seconds INR 1.0 APTT 29.2 (22.3-36.8) Seconds Sodium 135 L (137-145) mmol/L Potassium 4.2 (3.4-5.0) mmol/L Chloride 105 (98-107) mmol/L Carbon Dioxide 22 (22-30) mmol/L Anion Gap 8 (4-12) mmol/L BUN 12 (7-17) mg/dL Creatinine 0.61 L (0.7-1.0) mg/dL Estim Creat Clear Calc 100 ml/min Estimated GFR > 60 (59 - ) Glucose 115 H (65-110) mg/dL Calcium 9.0 (8.4-10.2) mg/dL Total Bilirubin 0.3 (0.2-1.3) mg/dL AST 30 (14-36) U/L ALT 20 (6-35) U/L Alkaline Phosphatase 33 L (38-126) U/L Total Protein 7.1 (6.3-8.2) g/dL Albumin 4.1 (3.5-5.1) g/dL Beta HCG, Quant 72.81 mIU/ML Urine Color Yellow (Yellow) Urine Appearance Clear (Clear) Urine pH 7.0 (5.0-9.0) Ur Specific Mentor 1.014 (1.001-1.035) Urine Protein Negative (Negative) mg/dL Urine Glucose (UA) Negative (Negative) mg/dL Urine Ketones Negative (Negative) mg/dL Ur Blood (Man) 3+ H (Negative) Urine Nitrate Negative (Negative) Urine Bilirubin Negative (Negative) Urine Urobilinogen 1.0 (<2.0) mg/dL Leukocyte Esterase Rfl Trace H (Negative) KELLEN/UL Urine RBC 21-50 H (0-2) /hpf Urine WBC 0-5 (0-3) /hpf Ur Squamous Epith Cells Occasional (Few) /hpf Urine Bacteria None seen /hpf Urine Casts 0-2 Blood Type A Positive Antibody Screen Negative Screen Not Reportable Baby's Blood Type Not Reportable Baby's DUSTIN Not Reportable Doses of RhIg Required 0 Discharge Plan Discharge Clinical Impression: Incomplete miscarriage Patient Disposition: Acute Care Hospital Condition: Stable Patient Language: Kyrgyz Prescriptions: No Action valproic acid (as sodium salt) 250 mg/5 mL solution sulfamethoxazole-trimethoprim [Bactrim DS] 800-160 mg tablet 1 tablet PO Q12H Qty: 14 0RF levetiracetam [Keppra] 500 mg tablet 1,500 mg PO BID 90 Days Qty: 0 0RF cephalexin 500 mg capsule 500 mg PO Q6H 7 Days Qty: 28 0RF amoxicillin 875 mg tablet 875 mg PO Q12H Qty: 14 0RF Follow-up/Referrals: PHYSICIAN,BALL MILL MIXER [Primary Care Provider] -
--- OUTSIDE RECORDS SUMMARY | 2024-09-23 20:00 | XMS_ITS | Continuity of Care Document ---
Author Organization [facility] Address [address] [place] [address] Phone Care Team Providers Care Manager Mental Health Name Role Phone Unavailable Unavailable Unavailable Advance Directives Directive Yes / No Effective Date File Name No Information Encounters Encounter Description Practice Location Reason(s) For Visit Diagnoses Date Provider Providers Copied on Encounter [facility], [address] [facility] [facility], [place], [place], [id number], tel:[phone] [facility] No Information No Information Referring Provider: ZEKE Mariee, [address] , [place], [address]. tel:[phone] Family History Family Member Type Diagnosis Age At Onset No Information Payers Payer name Insurance type Covered alliance party ID Authoriza tistacy(s) [facility] INDEMNITY [id number] Social History Type Description Quantity Date Captured Comments Sex Female Smoking Status No Information Vital Signs Date / Time: Height Weight BMI Pulse Rate Blood Pressure Temperature Respiratory Rate Body Surface Area Head Circumference BMI percentile Pulse Ox Inhaled Ox 161.00 lbs Chief Complaint And Reason For Visit No Information History Of Present Illness Encounter Date Complaint History Of Prese nt Illness No Information Instructions Date Instruction Additional Infor mation No Information Assessments Type Assessment Date No Information
--- OUTSIDE RECORDS SUMMARY | 2024-09-23 20:00 | XMS_ITS | Encounter Summary ---
Author Organization [facility] Address [address] [facility] [place] [address] Care Team Providers Care Embroiderer Hand Name Role Phone Unavailable Primary Care Provider Unavailabl e Reason for Visit * Reason Onset Date Comments Appointment 09/23/2024 Encounter Details Date Type Department Care Team (Late st Contact Info) Description 09/23/2024 Telephone [facility]ALUATION UNIT [address] [facility] [place] [address] Karli White Appointment Social History Tobacco Use Types Packs/Day Years Used Date Smoking Tobacco: Former Cigarettes Q uit: 02/2017 Passive Smoke Exposure: Never Smokeless Tobacco: Current Comments:Reports that she V apes several times per day. Alcohol Use Standard Drinks/Week Comments Not Currently 0 (1 standard drink = 0.6 oz pure alcohol) States she was only a soial drinker and that she has not had ETOH for the past 2 week. States she has never abused ETOH. AUDIT-C Answer Date Recorded Q1: How often do you have a drink containing alcohol? Never 02/22/2024 Q2: How many drinks containi ng alcohol do you have on a typical day when you are drinking? Patient does not drink Q3: How often do you have si x or more drinks on one occasion? Never 02/22/2024 Overall Financial Resource Strain (CARDIA) Answe r Date Recorded How hard is it for you to pa y for the very basics like food, housing, medical care, and heating? Not hard at all 02/22/2024 PHQ-2 Answer Date Recorded Patient Health Questionnaire-2 Score 4 02/22/2024 [place] [facility] - Occupational Stress Questionnaire Answer Date Recorded Do you feel stress - tense, restless, nervous, or anxious, or unable to sleep at night because your mind is troubled all the time - these days? Very much 02/22/2024 Hunger Vital Sign Answer Date Recorded Within the past 12 months, y ou worried that your food would run out before you got the money to buy more. Never true 02/22/20 24 Within the past 12 months, t he food you bought just didn't last and you didn't have money to get more. Never true 02/22/2024 PRAPARE - Transportation Answer Date Re corded In the past 12 months, has l ack of transportation kept you from medical appointments or from getting medications? Yes 02/09 In the past 12 months, has l ack of transportation kept you from meetings, work, or from getting things needed for daily living? No 02/22/2024 Housing Stability Vital Sign Answer [place] e Recorded In the last 12 months, was t here a time when you were not able to pay the mortgage or rent on time? No 11/26/2023 In the last 12 months, how many places have you lived? 4 11/26/2023 In the last 12 months, was t here a time when you did not have a steady place to sleep or slept in a [place] (including now)? No 11/26/2023 [place] Depression Scale Answer Date Recorded [place] Depression Scale Total 22 01/18/2024 The thought of harming myself has occurred to me . Hardly ever 01/18/2024 Housing Stability Vital Sign Answer [place] e Recorded In the last 12 months, was t here a time when you were not able to pay the mortgage or rent on time? No 02/22/2024 In the past 12 months, how m any times have you moved where you were living? 2 02/22/2024 At any time in the past 12 m [facility], were you homeless or living in a [place] facility (including now)? No 02/22/2024 Education Answer Date Recorded What is the highest level of school you have completed or the highest degree you have received? GED or equivalent Comments No Sex and Gender Information Value Date Recorded Sex Assigned at Not on file Legal Sex Female 12:37 PM [employer]ING CLE[employer]ER Gender Identity Not on file Sexual Orientation Not on file documented as of this encounter Functional Status * Is person deaf or have serious hearing difficulty? Answer Date of Assessment Author No 02/22/2024 10:38 PM Jeimy Ansari RN * Is person blind or have serious difficulty seeing? Answer Date of Assessment Author No 02/22/2024 10:38 PM Jeimy Ansari RN * Does person have serious difficulty walking/climbing stairs? Answer Date of Assessment Author No 02/22/2024 10:38 PM Jeimy Ansari RN * Does person have difficulty dressing/bathing? Answer Date of Assessment Author No 02/22/2024 10:38 PM Jeimy Ansari RN * Does person have difficulty doing errands alone? Answer Date of Assessment Author No 02/22/2024 10:38 PM Jeimy Ansari RN documented as of this encounter Mental Status * Does person have difficulty concentrating/remembering/making decisions? Answer Entry Date Author No 02/22/2024 10:38 PM Jeimy Ansari RN documented in this encounter Miscellaneous Notes * Telephone Encounter - Karli White - 09/23/2024 2:36 PM CDT Spoke with patient and she is now rescheduled in 1-2 weeks for New OB and US, per Dr. Cannon. Patient also mentioned that she passed a nice clot last evening and has been bleeding since associated with abdominal pain and cramping. Marleen Luo Rn instructed to visit the ED. documented in this encounter Plan of Treatment Upcoming Encounters Date Type Department Care Team (Late st Contact Info) Description 09/30/2024 12:45 PM CDT Appointment [facility] [address] [place] [address]. [address] [place] [address] 09/30/2024 1:30 PM CDT Appointment [facility] [address] [place] [address]. [address] [place] [address] documented as of this encounter Visit Diagnoses Not on filedocumented in this encounter Additional Health Concerns Infection Onset Date Last Indicated Resolved Time MRSA Hx Comment:Added from external infection. Source: [facility]. 06/24/2023 documented as of this encounter
--- OUTSIDE RECORDS SUMMARY | 2024-09-23 20:01 | XMS_ITS | Patient Health Record ---
Author Organization [facility] Address [address] [place] [address] Care Team Providers Care Cook Dessert Name Role Phone Cindy Sebastian Primary Care Provider Allergies Allergen (clinical drug ingredient) Drug/Non Drug Allergy documented on EMR Reaction Allergy Type Onset Date Status codeine Codeine Sulfate Unknown Drug Allergy A ctive paliperidone Invega Sustenna Unknown Drug Allergy Active Reason For Referral No Information Medications Medication SIG (Take, Route, Fr equency, Duration) Notes Start Date End Date Status ZyPREXA 10 MG 1 tablet Orally Once a day bedtime; Duration: 30 day(s) 04/10/2016 Act carlos eduardo busPIRone HCl 15 MG 1 tablet Orally Thre e times a day; Duration: 30 days 04/10/2016 Active Problems Problem Type SNOMED Code ICD Code Onset Dates Problem Status W/U Status Risk Notes Problem Bipolar 1 disorder (691457807) Bipolar 1 disorder (F31.9) Active confirmed Plan Of Treatment No Information Insurance Providers Payer Name Payer Address Payer Phone Subscriber Number Group Number Insured Name Patient Relationship to Insured Coverage Start Date Coverage End Date [facility] Plan [address] [place] [address] [address] [place] [address] [id number] Liseth Singh Self - patient is the insured 4 MEDICAID [address] [place] [address] [id number] Liseth Singh Self - patient is the insured 6 4
--- OUTSIDE RECORDS SUMMARY | 2024-09-23 20:01 | XMS_ITS | Clinical Summary ---
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 5.0 G/DL 07/24/2024 8:42 PM CDT [facility] AST 14(L) 15 - 37 U/L 07/24/2024 8:42 PM CDT [facility] ALT 13(L) 14 - 55 U/L 07/24/2024 8:42 PM T [facility] ALKALINE PHOSPHATASE S/P/B 50 50 - 136 U/L 07/24/2024 8:42 PM T [facility] ANION GAP 7.6 5 - 15 MMOL/L 07/24/2024 8:42 PM T [facility] BUN CREATININE RATIO 14.8 6 - 26 07/24/2024 8:42 PM T [facility] A/G RATIO 1.3 1.0 - 2.0 RATIO 07/24/2024 8:42 PM CDT [facility] GFR ESTIMATE >90 >90 ML/MIN/1.7 3 M2 07/24/2024 8:42 PM T [facility] Comment: NOTE: eGFR is not calculated for patients <18 years of age. This is an estimated GFR calculation using the new CKD EPI creatinine equation without race and so does not require a correction factor for race. This estimated GFR should not be used for calculating drug doses. 07/24/2024 7:53 PM CDT us Maria Haney MD LABORATORY Final Resul t [facility] [address] [place] [address], [place] [phone] * MAGNESIUM (07/24/2024 7:53 PM CDT) MAGNESIUM 2.0 1.8 - 2.4 MG/DL 07/24/2024 8:42 PM CDT [facility] 07/24/2024 7:53 PM CDT Maria Haney MD LABORATORY Final Resul t [facility] [address] [place] [address], [place] [phone] from Last 3 Months Additional Health Concerns Infection Onset Date Last Indicated MRSA Comment:06/24/23 urine (NOLVIA) 06/24/2023 06/24/2023 Insurance C/O PROVIDER SERVICES STEVE VALDEZ [facility] Advance Directives * Full Code (Latest Code Status on File) Date Activated Date Inactivated Comments 07/24/2023 11:11 PM 07/25/2023 1:32 AM * Full Code Date Activated Date Inactivated Comments 08/17/2022 12:48 PM 08/20/2022 4:31 PM * Full Code Date Activated Date Inactivated Comments 10/29/2020 9:04 AM 10/29/2020 10:24 PM * Full Code Date Activated Date Inactivated Comments 10/29/2020 8:03 AM 10/29/2020 9:04 AM * Full Code Date Activated Date Inactivated Comments 09/14/2019 10:50 AM 09/16/2019 3:43 PM Care Teams Long Chain Quiller Tender Relationship Specialty Start Date End Date None, Provider, PCP - General UNKNOWN PHYSICIAN SPECIALTY 08/31/23 None, ProviderMD 08/17/22 Alexy Ochoa MD [address] [address] [place] 08/31/23 None, ProviderMD UNKNOWN PHYSICIAN SPECIALTY 09/22/24
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
--- OUTSIDE RECORDS SUMMARY | 2024-09-23 20:01 | XMS_ITS | Encounter Summary ---
Author Organization [facility] Address [address] [place] [address] Care Team Providers Care Pedicurist Name Role Phone None, Provider MD Unavailable Unavailable None, Provider MD Primary Care Provider UnavailAlexy Clark MD Unavailable + None, Provider Unavailable Unavailable Encounter Details Date Type Department Care Team (Latest Contact Info) Description 09/22/2024 Travel Social History Tobacco Use Types Packs/Day Years Used Date Smoking Tobacco: Never Smokeless Tobacco: Never Alcohol Use Standard Drinks/Week Comments Yes 0 [...] place to sleep or slept in a longterm (including now)? 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 Answer Date of Assessment Author Status No 06/24/2023 8:52 PM Ghada Gil RN Active * Do you have serious difficulty walking or climbing stairs? Answer Date of Assessment Author Status No 06/24/2023 8:52 PM Ghada Gil RN Active * Do you have difficulty dressing or bathing? Answer Date of Assessment Author Status No 06/24/2023 8:52 PM Ghada Gil RN Active * Because of a physical, mental, or emotional condition, do you have difficulty doing errands alone such as visiting a doctor's office or shopping? Answer Date of Assessment Author Status No 06/24/2023 8:52 PM Ghada Gil RN Active * Calculated C-SSRS Risk Score (Lifetime/Recent) Answer Date of Assessment Author Status No Risk Indicated 09/22/2024 4:55 PM Tabatha Langley Nurse Tool Grinder II Active * [place] Suicide Severity Rating Scale (Screener/Recent Self-Report) Question Answer Date of Assessment Author Status 1. Wish to be (Past 1 Month) No 09/22/2024 4:55 PM Josef Langley Nurse Tool Grinder II Active 2. Non-Specific Active Suicidal Thoughts (Past 1 Month) No 09/22/2024 4:55 PM Josef Langley, Nurse Tool Grinder II Active 6. Suicidal Behavior (Lifetime) No 09/22/2024 4:55 PM Josef Langley Nurse Tool Grinder II Active documented as of this encounter Mental Status * Because of a physical, mental, or emotional condition, do you have serious difficulty concentrating, remembering, or making decisions? Answer Entry Date Author Status No 06/24/2023 8:52 PM Ghada Gil RN Active documented in this encounter Plan of Treatment Not on file documented as of this encounter Goals Goal Patient Goal Type Associated Problems Recent Progress Patient-Stated? Author Improve Home Support System General No Jimena Polk RN Safety - demonstrates understanding of home safety measures Lifestyle No Sonam Holt RN documented as of this encounter Visit Diagnoses Not on filedocumented in this encounter Additional Health Concerns Infection Onset Date Last Indicated Resolved Time MRSA Comment:06/24/23 urine (NOLVIA) 06/24/2023 06/24/2023 documented as of this encounter Care Teams Pedicurist Relationship Specialty Start Date End Date None, Provider, PCP - General UNKNOWN PHYSICIAN SPECIALTY 08/31/23 None, ProviderMD 08/17/22 Alexy Ochoa MD [address] [place] [address] OBGYN 08/31/23 None, ProviderMD UNKNOWN PHYSICIAN SPECIALTY 09/22/24 documented as of this encounter
--- OUTSIDE RECORDS SUMMARY | 2024-09-23 20:01 | XMS_ITS | Encounter Summary ---
Author Organization [facility] Address [address] [place] [address] Care Team Providers Care Outside B2B Sales Name Role Phone None, Provider MD Unavailable Unavailable None, Provider Primary Care Provider Alexy Jorge MD Unavailable + None, Provider Unavailable Unavailable Reason for Referral * Imaging (Emergency) - New Request Specialty Diagnoses / Procedures Referred By Jourdan berrios Referred To Contact RADIOLOGY Procedures US OB TRANSVAG Mary Reynolds MD [address] [place] [address] Phone: tel: fax: Referral ID Status Reason Start Date Expiration Date V isits Requested Visits Authorized [id number] New Request 09/22/2024 09/22/2025 1 1 Reason for Visit * Reason Comments Complications Encounter Details Date Type Department Care Team (Late st Contact Info) Description 09/22/2024 4:40 PM CDT - 09/22/2024 8:09 PM CDT Emergency [facility] Emergency Room [id number] [place] [address] Mary Reynolds MD [address] [place] [id number] Complications Discharge Disposition: Home or Self Care (Routine Discharge) Social History Tobacco Use Types Packs/Day Years [...] money to buy more. Never true 08/19/19 Within the past 12 months, t he [...] place to sleep or slept in a mcc (including now)? 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 Answer Date of Assessment Author Status No 06/24/2023 8:52 PM CDT Ghada Vela RN Active * Do you have serious difficulty walking or climbing stairs? Answer Date of Assessment Author Status No 06/24/2023 8:52 PM CDT Huelsmann, Ghada M, RN Active * Do you have difficulty dressing or bathing? Answer Date of Assessment Author Status No 06/24/2023 8:52 PM CDT Ghada Vela RN Active * Because of a physical, mental, or emotional condition, do you have difficulty doing errands alone such as visiting a doctor's office or shopping? Answer Date of Assessment Author Status No 06/24/2023 8:52 PM CDT Ghada Vela RN Active * Calculated C-SSRS Risk Score (Lifetime/Recent) Answer Date of Assessment Author Status No Risk Indicated 09/22/2024 4:55 PM CDT Tabatha Anderson, Nurse Slot Machine Floor Person II Active * [place] Suicide Severity Rating Scale (Screener/Recent Self-Report) Question Answer Date of Assessment Author Status 1. Wish to be (Past 1 Month) No 09/22/2024 4:55 PM CDT Josef Anderson, Nurse Slot Machine Floor Person II Active 2. Non-Specific Active Suicidal Thoughts (Past 1 Month) No 09/22/2024 4:55 PM CDT Josef Anderson, Nurse Slot Machine Floor Person II Active 6. Suicidal Behavior (Lifetime) No 09/22/2024 4:55 PM CDT Josef Anderson, Nurse Slot Machine Floor Person II Active documented as of this encounter Mental Status * Because of a physical, mental, or emotional condition, do you have serious difficulty concentrating, remembering, or making decisions? Answer Entry Date Author Status No 06/24/2023 8:52 PM CDT Ghada Vela RN Active documented in this encounter Discharge Instructions * Discharge Instructions* Mary Reynolds MD - 09/22/2024 7:42 PM CDT Please call your OB. You will need to have repeat US in 1-2 weeks. * Attachments The following attachments cannot be sent through Care Everywhere. * Bleeding In Early ([place] Citizen) documented in this encounter Medications at Time of Discharge clonazePAM (KLONOPIN) 1 MG tablet Take 1 tablet (1 mg total) by mouth 3 (three) times daily as needed for Anxiety. Multiple Vitamins-Minerals (MULTIVITAMIN ADULT, MINERALS,) Tab ondansetron (ZOFRAN-ODT) 4 MG disintegrating tablet 05/18/2023 promethazine (PHENERGAN) [address] 1 suppository (25 mg total) rectally every 6 (six) hours as needed for Nausea. sertraline 50 MG tablet Take 1 tablet (50 mg total) by mouth daily. Turmeric (QC TUMERIC COMPLEX) 500 MG Cap documented as of this encounter ED Notes * Reji Molina RN - 09/22/2024 8:08 PM CDTSummary: Discharge Patient received discharge and medication instructions and verbalized an understanding of both * Mary Ryenolds MD - 09/22/2024 5:40 PM CDT Chief Complaint Chief Complaint Patient presents with Complications History of Present Illness This is a 29 year old female approximately 6 weeks GA who presents for evaluation pelvic pain.She states her LMP was August 08. She developed pelvic pain 2 days ago. She developed vaginal spotting today and she reports she began passing clots at 3 pm. She reports some lightheadness. She has only had to change her pad once today so far. She also has nausea History provided by: Patient Medical History ALLERGIES: Review of patient's allergies indicates: Allergen Reactions Codeine Anaphylaxis, Hives, Unknown and Itching Pt states she gets hives first, then she has trouble breathing Pt states she gets hives first, then she has trouble breathing Codeine Anaphylaxis Bee Venom Unknown Paliperidone Unknown Seasonal Unknown MEDICATIONS: Prior to Admission medications Medication Sig Start Date End Date Taking? Authorizing Provider clonazePAM (KLONOPIN) 1 MG tablet Take 1 tablet (1 mg total) by mouth 3 (three) times daily as needed for Anxiety. Default History Genericprovider Multiple Vitamins-Minerals (MULTIVITAMIN ADULT, MINERALS,) Tab Default History Genericprovider ondansetron (ZOFRAN-ODT) 4 MG disintegrating tablet 05/18/23 Default History Genericprovider promethazine (PHENERGAN) [address] 1 suppository (25 mg total) rectally every 6 (six)hours as needed for Nausea. Default History Genericprovider sertraline 50 MG tablet Take 1 tablet (50 mg total) by mouth daily. Doc [facility] Abstract Turmeric (QC TUMERIC COMPLEX) 500 MG Cap Default History Genericprovider PAST MEDICAL HISTORY: Past Medical History[1] PAST SURGICAL HISTORY: Past Surgical History[2] FAMILY HISTORY: Family History[3] SOCIAL HISTORY: Social History[4] Review of Systems Review of Systems Physical Exam Filed Vitals: 09/22/24 1653 09/22/24 1656 09/22/24 1805 09/22/242006 BP: 120/63 (P) 113/60 124/70 Pulse: 80 77 Resp: 22 20 Temp: 97.6 ??F (36.4 ??C) 97.8 ??F (36.6 ??C) TempSrc: Temporal Temporal SpO2: 97% 97% (P) 97% 100% Weight: 64.4 kg (142 lb) Height: 1.626 m (5' 4) Physical Exam Vitals and nursing note reviewed. Constitutional: Appearance: Normal appearance. She is normal weight. HENT: Head: Normocephalic and atraumatic. Right Ear: External ear normal. Left Ear: External ear normal. Mouth/Throat: Mouth: Mucous membranes are moist. Pharynx: Oropharynx is clear. Eyes: Extraocular Movements: Extraocular movements intact. Cardiovascular: Rate and Rhythm: Normal rate and regular rhythm. Pulses: Normal pulses. Heart sounds: No murmur heard. Pulmonary: Effort: Pulmonary effort is normal. No respiratory distress. Breath sounds: Normal breath sounds. No wheezing. Abdominal: General: Abdomen is flat. Bowel sounds are normal. There is no distension. Palpations: Abdomen is soft. Tenderness: There is no abdominal tenderness. Genitourinary: General: Normal vulva. Cervix: Normal. No erythema. Adnexa: Right adnexa normal and left adnexa normal. Musculoskeletal: General: No swelling, tenderness or deformity. Cervical back: Normal range of motion and neck supple. No rigidity. Skin: General: Skin is warm and dry. Capillary Refill: Capillary refill takes less than 2 seconds. Neurological: General: No focal deficit present. Mental Status: She is alert and oriented to person, place, and time. Cranial Nerves: No cranial nerve deficit. Sensory: No sensory deficit. Psychiatric: Mood and Affect: Mood normal. Behavior: Behavior normal. Thought Content: Thought content normal. Diagnostic Studies / Procedures ELECTROCARDIOGRAMS: No results found for this visit on 09/22/24. LABORATORY STUDIES: Results for orders placed or performed during the hospital encounter of 09/22/24 CBC W/DIFF AUTOMATED Result Value Ref Range WBC 11.19 (H) 4.4 - 11.0 x10'3/uL RBC 4.39 (L) 4.50 - 5.10 x10'6/uL HGB 13.2 12.3 - 15.3 G/DL HCT 38.8 35.9 - 44.6 % MCV 88.4 80.0 - 96.0 FL MCH 30.1 25.3 - 30.9 PG MCHC 34.0 31.0 - 34.1 G/DL RDW 13.1 12.4 - 15.1 % PLT 219 151 - 353 x10'3/uL MPV 11.0 9.6 - 12.0 FL RBC MORPHOLOGY NORMAL PLT MORPH. NORMAL WBC MORPHOLOGY NORMAL LYMPHOCYTES % 16.9 15.8 - 45.0 % NEUTROPHILS % 74.8 (H) 42.1 - 71.9 % MONOCYTES % 6.9 5.7 - 12.5 % EOSINOPHILS 0.6 0.0 - 5.6 % BASOPHILS 0.4 0.0 - 1.3 % ABS. NEUTROPHILS 8.37 (H) 1.40 - 6.00 x10'3/uL IMMATURE GRANS % 0.4 0.0 - 0.5 % ABS. LYMPHOCYTES 1.89 0.80 - 4.70 x10'3/uL PROTIME/INR, VENOUS Result Value Ref Range PROTIME 12.8 (H) 9.1 - 12.4 SEC INR 1.1 PARTIAL THROMBOPLASTIN TIME,PTT Result Value Ref Range PTT 34.8 25.1 - 36.5 SEC Quantitative HCG Result Value Ref Range HCG QUANTITATIVE 157 (H) 0 - 6 MIU/ML BLOOD TYPING, ABO AND RH Result Value Ref Range ABO/RH A POSITIVE IMAGING STUDIES US OB TRANSVAG Final Result by User, [id number] (09/22 1822) [facility] [address] [place] [address] EXAMINATION: US OB TRANSVAG INDICATION: vaginal bleeding, [...] By: Shireen John DO, 09/22/2024 6:09 PM ED Course / Medical Decision Making Medical Decision Making Amount and/or Complexity of Data Reviewed Labs: ordered. Radiology: ordered. ED Course as of 09/22/24 2200 SunSep 22, 2024 1710 US requesting patient to get pain medication. Patient has anaphylaxis to codeine. I reviewed this with her and she confirms she can not taken any narcotic for her pin. [KH] 184 I reviewed results with patient. She understands her HCG is low and no definite IUP seen. She may be having miscarriage. Cervix is closed [KH] [address] Yoon with [facility] who states patient will need repeat US in 1-2 weeks. She will have office to set patient up. Patient can be discharged [KH] ED Course User Index [KH] Mary Reynolds MD Clinical Impression Threatened miscarriage ([facility]/HCC) (Primary) Disposition: Discharge [1] Past Medical History: Diagnosis Date Asthma ([facility]/HCC) Disease of thyroid gland hypothyroid- states resolved Meningitis ([facility]/HCC) 08/2018 Seizures ([facility]) Substance abuse ([facility]) meth, quit 1.5 years ago [2] Past Surgical History: Procedure Laterality Date LAPAROSCOPY; DIAGNOSTIC endometriosis TONSILLECTOMY [3] Family History Family history unknown: Yes [4] Social History Tobacco Use Smoking status: Never Smokeless tobacco: Never Vaping Use Vaping status: Some Days Substances: Nicotine Devices: Disposable Substance Use Topics Alcohol use: Yes Comment: a few times/week Drug use: Yes Types: Marijuana Mary Reynolds MD 09/22/242200 * Nurse Elizabeth Ortiz II - 09/22/2024 4:51 PM CDT Pt presents to ED room 5 with abdominal pain in RLQ that radiates down to both legs rates pain 7/10. Pt is 6 weeks and has noticed vaginal bleeding with clots that started today. A2 Cosigned by Nikole Ramos, RN at 09/22/2024 6:13 PM CDT documented in this encounter Plan of Treatment Not on file documented as of this encounter Goals Goal Patient Goal Type Associated Problems Recent Progress Patient-Stated? Author Improve Home Support System General No Jimena Polk M, RN Safety - demonstrates understanding of home safety measures Lifestyle No Sonam Holt RN documented as of this encounter Procedures Procedure Name Priority Date/Time Associated Diagnosis Comments US OB TRANSVAG STAT 09/22/2024 5:42 PM CDT PARTIAL THROMBOPLASTIN TIME,PTT STAT 09/22/2024 5:15 PM CDT PROTHROMBIN TIME, VENOUS STAT 09/22/2024 5:15 PM CDT HC HCG QN STAT 09/22/2024 5:15 PM CDT HC BLOOD TYPING ABO STAT 09/22/2024 5 :15 PM CDT CBC W/DIFF AUTOMATED STAT 09/22/2024 5:15 PM CDT documented in this encounter Results * US OB TRANSVAG (09/22/2024 5:42 [...] 6:09 PM Narrative 09/22/2024 6:17 PM CDT [facility] [address] [place] [address] EXAMINATION: US OB TRANSVAG INDICATION: vaginal bleeding, [...] cul-de-sac. Procedure Note Shireen John, - 09/22/2024 [facility] [address] [facility] [place] [address] EXAMINATION: US OB TRANSVAG INDICATION: vaginal bleeding, [...] Mary Reynolds MD ULTRASOUND Final Result * BLOOD TYPING, ABO AND RH (09/22/2024 5:15 PM CDT) ABO/RH A POSITIVE 09/22/2024 5:42 PM CDT [facility] 09/22/2024 5:15 PM CDT us Mary Reynolds MD BLOOD BANK TEST ORDERABLES Fi nal Result [facility] [address] [place] [address], [place] [phone] * (ABNORMAL) Quantitative HCG (09/22/2024 5:15 PM CDT) HCG QUANTITATIVE 157(H) 0 - 6 MIU/ML 09/22/2024 5:46 PM CDT [facility] Comment: WEEKS OF REFERENCE RANGES NON- [...] us Mary Reynolds MD LABORATORY Final Result [facility] [address] [place] [address], [place] [phone] * PARTIAL THROMBOPLASTIN TIME,PTT (09/22/2024 5:15 PM CDT) Pathologist [facility] PTT 34.8 25.1 - 36.5 SEC 09/22/2024 5:31 PM CDT [facility] 09/22/2024 5:15 PM CDT Mary Reynolds MD LABORATORY Final Result Performing Organization Address City/[facility]/ZIP Co de Phone Number [facility] [address] [place] [address], [place] [phone] * (ABNORMAL) PROTIME/INR, VENOUS (09/22/2024 5:15 PM CDT) [facility] PROTIME 12.8(H) 9.1 - 12.4 SEC 09/22/2024 5:31 PM CDT [facility] INR 1.1 09/22/2024 5:31 PM CDT [facility] Comment: Recommend INR ranges for Oral Anticoagulant Therapy: Mechanical Cardiac Values 2.5-3.5 All others indication 2.0-3.0 09/22/2024 5:15 PM CDT Mary Reynolds MD LABORATORY Final Result [facility] [address] [place] [address], [place] [phone] * (ABNORMAL) CBC W/DIFF AUTOMATED (09/22/2024 5:15 PM CDT) Pathologist [facility] WBC 11.19(H) 4.4 - 11.0 x10'3/uL 09/22/2024 5:25 PM CDT [facility] RBC 4.39(L) 4.50 - 5.10 x10'6/uL 09/22/2024 5:25 PM CDT [facility] HGB 13.2 12.3 - 15.3 G/DL 09/22/2024 5:25 PM CDT [facility] HCT 38.8 35.9 - 44.6 % 09/22/2024 5:25 PM CDT [facility] MCV 88.4 80.0 - 96.0 FL 09/22/2024 5:25 PM CDT [facility] MCH 30.1 25.3 - 30.9 PG 09/22/2024 5:25 PM CDT [facility] MCHC 34.0 31.0 - 34.1 G/DL 09/22/2024 5:25 PM CDT [facility] RDW 13.1 12.4 - 15.1 % 09/22/2024 5:25 PM CDT [facility] PLT 219 151 - 353 x10'3/uL 09/22/2024 5:25 PM CDT [facility] MPV 11.0 9.6 - 12.0 FL 09/22/2024 5:25 PM CDT [facility] RBC MORPHOLOGY NORMAL 09/22/2024 5:25 PM CDT [facility] PLT MORPH. NORMAL 09/22/2024 5:25 PM CDT [facility] WBC MORPHOLOGY NORMAL 09/22/2024 5:25 PM CDT [facility] LYMPHOCYTES % 16.9 15.8 - 45.0 % 09/22/2024 5:25 PM CDT [facility] NEUTROPHILS % 74.8(H) 42.1 - 71.9 % 09/22/2024 5:25 PM CDT [facility] MONOCYTES % 6.9 5.7 - 12.5 % 09/22/2024 5:25 PM CDT [facility] EOSINOPHILS 0.6 0.0 - 5.6 % 09/22/2024 5:25 PM CDT [facility] BASOPHILS 0.4 0.0 - 1.3 % 09/22/2024 5:25 PM CDT [facility] ABS. NEUTROPHILS 8.37(H) 1.40 - 6.00 x10'3/uL 09/22/2024 5:25 PM CDT [facility] IMMATURE GRANS % 0.4 0.0 - 0.5 % 09/22/2024 5:25 PM CDT [facility] ABS. LYMPHOCYTES 1.89 0.80 - 4.70 x10'3/uL 09/22/2024 5:25 PM CDT [facility] 09/22/2024 5:15 PM CDT us Mary Reynolds MD LABORATORY Final Result [facility] [address] [place] [phone], documented in this encounter Visit Diagnoses Diagnosis Threatened miscarriage ([facility])- Primary Threatened , unspecified as to episode of care documented in this encounter Additional Health Concerns Infection Onset Date Last Indicated Resolved Time MRSA Comment:06/24/23 urine (NOLVIA) 06/24/2023 06/24/2023 documented as of this encounter Care Teams Outside B2B Sales Relationship Specialty Start Date End Date None, ProviderMD PCP - General UNKNOWN PHYSICIAN SPECIALTY 08/31/23 None, MD Shivani 08/17/22 Alexy Ochoa MD [address] [address] OBGYN 08/31/23 None, Provider, MD UNKNOWN PHYSICIAN SPECIALTY 09/22/24 documented as of this encounter
--- OUTSIDE RECORDS SUMMARY | 2024-09-23 20:01 | XMS_ITS | Encounter Summary ---
Author Organization [facility] Address [address] [place] [address] Care Team Providers Care Customer Professional Name Role Phone Unavailable Primary Care Provider Unavailabl e Reason for Visit * Reason Onset Date Comments Scheduling 12/31/2019 Called to shanti le appt for US/MFM visit. Left v.mail for patient to return call. will schedule week of 01/19 Encounter Details Date Type Department Care Team (Late st Contact Info) Description 12/31/2019 Telephone [facility] [address] [place] [address] Deann Quintana SN Scheduling (Called to schedule appt for US/MFM visit. Left v.mail for patient to return call. 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 No / Unsure 01/01/2020 2:42 PM CDT documented as of this encounter Functional Status * Is person deaf or have serious hearing difficulty? Answer Date of Assessment Author No 11/30/2018 6:27 PM CDT Tony Krueger RN * Is person blind or have serious difficulty seeing? Answer Date of Assessment Author No 11/30/2018 6:27 PM CDT Tony Krueger RN * Does person have serious difficulty walking/climbing stairs? Answer Date of Assessment Author No 11/30/2018 6:27 PM CDT Tony Krueger RN * Does person have difficulty dressing/bathing? Answer Date of Assessment Author No 11/30/2018 6:27 PM CDT Tony Krueger RN * Does person have difficulty doing errands alone? Answer Date of Assessment Author No 11/30/2018 6:27 PM CDT Tony Krueger RN documented as of this encounter Mental Status * Does person have difficulty concentrating/remembering/making decisions? Answer Entry Date Author No 11/30/2018 6:27 PM CDT Tony Krueger RN documented in this encounter Miscellaneous Notes * Telephone Encounter - Deann Quintana - 12/31/2019 3:02 PM CDT Called to schedule appt for /[facility] visit. Left v.mail for patient to return call. will schedule week of 01/19 documented in this encounter Plan of Treatment Upcoming Encounters Date Type Department Care Team (Late st Contact Info) Description 09/30/2024 12:45 PM CDT Appointment [facility]/ EVALUATION UNIT [address] [place] [address]. [address] [place] [address] 09/30/2024 1:30 PM CDT Appointment [facility]/ [facility]ALUATION UNIT [address] [place] [address]. [address] [place] [id number] documented as of this encounter Visit Diagnoses Not on filedocumented in this encounter Additional Health Concerns Infection Onset Date Last Indicated Resolved Time MRSA Hx Comment:Added from external infection. [facility] 06/24/2023 documented as of this encounter
[2024-09-23] MEDS: SODIUM CHLORIDE 0.9% IV 1,000 ML 999 ML IV CONT ×2 (21:03→21:04)
[2024-09-23 21:05] LABS: Hematocrit 39.1 % (37.0-47.0); Hemoglobin 12.9 g/dL (12.0-15.0); Immature Granulocyte Percent A 0.3 % (0-0.5); Lymphocytes Absolute Auto 2.59 K/mm3 (0.9-3.2); Mean Corpuscular HGB Conc 33.0 g/dl (32-36); Mean Corpuscular Hemoglobin 29.5 pg (26-34); Mean Corpuscular Volume 89.5 fl (80-100); Nucleated Red Blood Cells Absolute Auto 0.000 K/mm3 (0.0-0.012); Nucleated Red Blood Cells Perc 0.0 % (0.0-0.2); Platelet Count Result 190 k/mm3 (150-375); Red Blood Count 4.37 M/mm3 (4.2-5.4); White Blood Count 7.3 K/mm3 (4.5-10.0)
[2024-09-23 21:09] LABS: Add Urine Microscopic? YES; Appearance Urine Clear (Clear); Glucose Urine UA Negative (Negative); Leukocyte Esterase Ur Trace LEU/UL (Negative); Nitrate Urine Negative (Negative); Non Pathogenic Casts 0-2; Specific Grav Ur 1.014 (1.001-1.035)
[2024-09-23 21:16] LABS: INR 1.0; Prothrombin Time 13.4 Seconds (11.1-14.7)
[2024-09-23 21:17] LABS: Partial Thromboplastin Time 29.2 Seconds (22.3-36.8)
[2024-09-23 21:22] LABS: Alanine Aminotransferase 20 U/L (6-35); Albumin Level 4.1 g/dL (3.5-5.1); Alkaline Phosphatase 33 U/L (38-126); Anion Gap 8 mmol/L (4-12); Aspartate Amino Transferase 30 U/L (14-36); Bilirubin,Total 0.3 mg/dL (0.2-1.3); Blood Urea Nitrogen 12 mg/dL (7-17); Calcium 9.0 mg/dL (8.4-10.2); Carbon Dioxide 22 mmol/L (22-30); Chloride 105 mmol/L (98-107); Estimated CRCL calculation 100 ml/min; Estimated Glomerular Filt Rate > 60; Glucose 115 mg/dL (65-110); Potassium 4.2 mmol/L (3.4-5.0); Sodium 135 mmol/L (137-145); Total Protein 7.1 g/dL (6.3-8.2)
[2024-09-23 21:34] LABS: Beta HCG Quantitative 72.81 mIU/ML
[2024-09-23] MEDS: KETOROLAC 30 MG/ML VIAL (*BKC) IV PUSH (22:14)
[2024-09-23] MEDS: MORPHINE SULFATE (*CRX) 4 MG/ML INJ IV PUSH (23:05)
[2024-09-24] MEDS: SODIUM CHLORIDE 0.9% IV 1,000 ML 999 ML IV CONT (00:27)
[2024-09-24] MEDS: ONDANSETRON INJ 4 MG/2 ML VIAL IV PUSH (00:27)
[2024-09-24 01:15] VITALS: BP 98/53; PULSE 68; RESP 22; O2SAT 100
[2024-09-24] MEDS: MORPHINE SULFATE (*CRX) 2 MG/ML INJ IV PUSH (01:50)
== END 2024-09-24 02:02 | disposition short-term general hospital (02) ==
PROVIDERS: Emergency Provider Physician Assistant
DX: O03.4 Incomplete spontaneous abortion without complication (principal); F17.210 Nicotine dependence, cigarettes, uncomplicated; G40.909 Epilepsy, unspecified, not intractable, without status epilepticus
CPT/HCPCS: 36415; 76801; 76817; 80053; 81001; 84702; 85025; 85461; 85610; 85730; 86850; 86900; 86901; 96361; 96374; 96375; 96376; 99285; J1885; J2270; J2405; J7030

== ENCOUNTER 2025-03-01 09:00 | Emergency (ER) | payer BC, SELFPAY ==
--- OUTSIDE RECORDS SUMMARY | 2024-10-21 14:30 | XMS_ITS ---
Author Organization [facility] Address [address] [place] [address] Phone [phone] Care Team Providers Care Senior Database Programmer Name Role Phone Cindy Sebastian MD Primary Care Provider REASON FOR VISIT returning pt, psych eval [...] Provider Diagnosis 10/21/2024 02:30 PM Office Visit [address] [place] [address] Rubén Jaz Plan Of Treatment No Information Medical (General) History Surgical History Surgery Date(Month/Year) endometrosis laposcopy Hospitalization History Reason Date(Month/Year) MH Seizures Progress Notes * CURRIEDayanaraOB:1995 (29 yo F)Acc No.[id number]:10/21/2024 UNLOCKED PROGRESS NOTE Patient: Liseth CONDON Provider: Araseli Sebastian :1995 A ge:29 Y S ex:Female Date:10/21/2024 Address:[address] [place], [place] [id number] Subjective: * Chief Complaints: * 1 . Returning pt, psych eval. * Screening: * * Medical History: * Medications: T aking ZyPREXA 10 MG Tablet 1 tablet Orally Once a day bedtime , Taking busPIRone HCl 15 MG Tablet 1 tablet Orally Three times a day Objective: * Vitals: Assessment: Plan: * Treatment: * * Electronic signature of Cindy Sebastian MD, [id number] on 03/01/2025 at 10:18 AM SHOE SPRAYER Sign off status: Pending * Provider: Araseli Sebastian Date: 0 10/21/2024 Generated for Mana mckeon/Konstantin/Jesus Alberto on: 1 05/02/2024 10:18 AM SHOE SPRAYER
--- OUTSIDE RECORDS SUMMARY | 2024-12-29 10:40 | XMS_ITS ---
Author Organization [facility] Address [address] [place] [address] Phone [phone] Care Team Providers Care Paving Machine Operator Name Role Phone Jaz KRISHNAN, Cindy Primary Care Provider [phone] Chan Nieves APRN Unavailable [phone] REASON FOR VISIT 3 Week F/U Medications Medication SIG (Take, Route, Frequency, Duration) Notes Start Date End Date Diagnosis (ICD Code) Status SEROquel 25 MG Tablet 1 - 2 tablets at bedtime for insomnia Orally Once a day; Duration: 30 days 5 Mood disorder (ICD_10 - F39) Active Atomoxetine HCl 40 MG Capsule 1 capsule in the morning Orally Once a day; Duration: 30 days 5 ADHD (attention deficit hyperactivity disorder), combined type (ICD_10 - F90.2) Active [place] Carbonate ER 300 MG Tablet Extended Release 1 tablet at bedtime Orally Once a day; Duration: 30 days 5 Mood disorder (ICD_10 - F39) Active hydrOXYzine HCl 25 MG Tablet 1 - 2 tablets as needed for anxiety or panic Orally three times daily; Duration: 30 days Gabapentin stopped due to lack of efficacy 5 PTSD (post-traumatic stress disorder) (ICD_10 - F43.10) Active cloNIDine HCl ER 0.1 MG Tablet Extended Release 12 Hour 1 tablet at bedtime Orally Once a day; Duration: 30 days ADHD (attention deficit hyperactivity disorder), combined type (ICD_10 - F90.2) Active Social History Sex Observation Social History Observation Description Sex Observation Female Sexual Orientation Social History Observation Description Sexual Orientation Straight or heterose xual Gender Identity Social History Observation Description Gender Identity Female Encounters Date Time Type Facility Location Provider Diagnosis 12/29/2024 10:40 AM Office Visit [address] [place] [address] Chan Nieves Plan Of Treatment No Information Medical (General) History Surgical History Surgery Date(Month/Year) endometrosis laposcopy Hospitalization History Reason Date(Month/Year) MH Seizures Progress Notes * Dayanara SINGHOB:1995 (29 yo F)Acc No.[id number]:12/29/2024 UNLOCKED PROGRESS NOTE Patient: Liseth CONDON Provider: Maryam Nieves DNP, PMDEBORAP-BC :1995 A ge:29 Y S ex:Female Date:12/29/2024 Address:[address] [place], [place] [id number] Pcp:Cindy Sebastian Subjective: * Chief Complaints: * 1 . 3 Week F/U. * Screening: * * Medical History: * Medications: T aking [place] Carbonate ER 300 MG Tablet Extended Release 1 tablet at bedtime Orally Once a day , Taking hydrOXYzine HCl 25 MG Tablet 1 - 2 tablets as needed for anxiety or panic Orally three times daily , Notes to Pharmacist: Gabapentin stopped due to lack of efficacy, Taking SEROquel 25 MG Tablet 1 - 2 tablets at bedtime for insomnia Orally Once a day , Taking Atomoxetine HCl 40 MG Capsule 1 capsule in the morning Orally Once a day , Taking cloNIDine HCl ER 0.1 MG Tablet Extended Release 12 Hour 1 tablet at bedtime Orally Once a day Objective: * Vitals: Assessment: Plan: * Treatment: * * Electronic signature of Duncan Nieves APRN, [id number] on 03/01/2025 at 10:18 AM PROGRAM/MUSIC DIRECTOR Sign off status: Pending * Provider: Maryam Nieves DNP, PMDEBORAP-BC Date: Generated for Mana mckeon/Konstantin/eTransmitting on: 1 05/02/2024 10:18 AM PROGRAM/MUSIC DIRECTOR
[2025-03-01] VITALS (11 sets, daily range): BP systolic 100–106; BP diastolic 45–54; PULSE 60–85; RESP 13–21; TEMP 36.6; O2SAT 96–100
--- NOTE | ~2025-03-01 | CT_ITS ---
CT HEAD NON-CONTRAST Clinical History: seizure, new headache Comparison: 12/14/2022 Technique: Unenhanced axial images skull base to vertex Coronal, sagittal reformats CT images acquired with automatic exposure control for dose reduction DLP: 605 mGy-cm Findings: Sulci, ventricles: Unremarkable. No intracerebral hemorrhage. No evidence acute territorial infarct. No mass effect, midline shift. Bony calvarium intact. Visualized paranasal sinuses: Clear. Mastoid air cells: Clear. IMPRESSION: 1. No acute intracranial findings. Reviewed, dictated and finalized at location R. ER
--- NOTE | 2025-03-01 09:07 | ECG_ITS ---
Test Date: 2025-03-01 09:09:15 Measurements Intervals [place] Rate: 68 P: 61 NH: 183 QRS: 62 QRSD: 79 T: 45 QT: 390 QTc: 416 Interpretive Statements SINUS RHYTHM WITH SINUS ARRHYTHMIA MINIMAL Q WAVES- DIFFUSE LEADS BASELINE ARTIFACT- I, II, III ,AVL BORDERLINE ECG No previous ECG available for comparison Electronically Signed On 03-01-2025 17:11:07 ENVELOPE ADJUSTER by Javier Patrick D.O.
[2025-03-01 10:08] LABS: Hematocrit 36.0 % (37.0-47.0); Hemoglobin 12.6 g/dL (12.0-15.0); Immature Granulocyte Percent A 0.3 % (0-0.5); Lymphocytes Absolute Auto 1.09 K/mm3 (0.9-3.2); Mean Corpuscular HGB Conc 35.0 g/dl (32-36); Mean Corpuscular Hemoglobin 30.6 pg (26-34); Mean Corpuscular Volume 87.4 fl (80-100); Nucleated Red Blood Cells Absolute Auto 0.000 K/mm3 (0.0-0.012); Nucleated Red Blood Cells Perc 0.0 % (0.0-0.2); Platelet Count Result 155 k/mm3 (150-375); Red Blood Count 4.12 M/mm3 (4.2-5.4); White Blood Count 6.4 K/mm3 (4.5-10.0)
--- NOTE | 2025-03-01 10:11 | ED_ITS ---
HPI - Seizure General Chief Complaint: Seizure Stated Complaint: seizure Time Seen by Provider: 03/01/25 10:03 Source: patient Mode of arrival: EMS Limitations: no limitations History of Present Illness HPI Narrative: This is a 29-year-old female with history of seizures who presents to the ED for a seizure. Per EMS, patient was at the gas station reportedly had 3 seizures less than 1 minute. Patient states that she has been out of her Keppra for the last week as she just found out she lost insurance. This she states that she does have a right frontal headache at this time that is worse than her normal headache. She does report nausea but no vomiting. Patient does report over the last few days, she has been having urinary urgency. She notes that in her last , she was on antibiotics frequently for this. Related Data Home Medications ?Medication ?Instructions ?Recorded ?Confirmed ?Last Taken ?Type valproic acid (as sodium salt) 250 mg 09/29/21 Unknow n History mg/5 mL oral solution Allergies Allergy/AdvReac Type Severity Reaction Status Date / Time codeine Allergy Severe Dyspnea / Verified 04/06/23 18:59 SOB Review of Systems 2 Review of Systems: All systems reviewed & are unremarkable except as noted in HPI and below PMFSH Past Medical History Medical History Miscarriage Epilepsy with status epilepticus, not intractable Post-traumatic stress disorder, chronic Family History Family History Other Family history of malignant neoplasm of breast Social History Social History Smoking status: Current some day smoker Tobacco type: cigarettes Second hand tobacco smoke exposure: Yes Alcohol intake: never Substance use: never Living arrangements: with family Gender identity (if verbalized by the patient): Female Sexual Orientation (if Verbalized by the Patient): Straight or Heterosexual Spiritual care concerns: No Exam 2 Narrative: APPEARANCE: No acute distress, nontoxic, resting in bed EYES: EOMI HEENT: Normocephalic, atraumatic, no tongue lacerations RESPIRATORY: No respiratory distress Clear to auscultation bilaterally with no rhonchi wheezing or rales. CARDIOVASCULAR: Regular rate and rhythm without murmurs rubs or gallops. ABDOMINAL: Soft, nontender, nondistended, no rebound or guarding MUSCULOSKELETAl: Moves all extremities. No clubbing, cyanosis or edema. NEURO: Awake and alert. Following commands, speech normal, no focal deficits SKIN:: Warm, dry. No rashes lesions or abrasions PSYCHIATRIC: Normal affect/mood, Course Vital Signs Vital signs: Vital Signs Temperature 97.8 F 03/01/25 08:59 Pulse Rate 67 03/01/25 08:59 Respiratory Rate 14 03/01/25 08:59 Blood Pressure 106/45 L 03/01/25 08:59 Pulse Oximetry 99 03/01/25 08:59 Oxygen Delivery Room Air 03/01/25 08:59 Temperature 97.8 F 03/01/25 08:59 Pulse Rate 66 03/01/25 12:33 Respiratory Rate 17 03/01/25 12:33 Blood Pressure 104/51 L 03/01/25 12:33 Pulse Oximetry 98 03/01/25 12:33 Oxygen Delivery Room Air 03/01/25 08:59 MDM MDM Narrative Medical decision making narrative: 29-year-old female Presenting for seizures. On initial evaluation patient was in no acute distress afebrile, hemodynamic stable. Differentials include but are not limited to: Seizure disorder, UTI, substance abuse, alcohol withdrawal, pyelonephritis Notable exam findings: No tongue laceration, no focal neurologic deficits I personally reviewed the patient's lab result. Notable lab findings: CBC without significant abnormalities. CMP with a slight metabolic acidosis, likely due to a her seizure. Beta-hCG quant greater than 15,000. UA consistent with a UTI. CT head showed no acute process. I personally reviewed the patient's EKGs: Normal sinus rhythm, normal axis, normal intervals, no acute ST or T-wave changes Patient was given 1 L NS bolus, Tylenol, Zofran. She was also given her home dose of Keppra. She was given Keflex for the UTI. Patient subsequently had an additional seizure that lasted less than 1 minute. She was monitored for an additional hour after this and had complete return to baseline. She is given an additional dose of Keppra. Patient was deemed appropriate for discharge at this time. She will be given prescriptions for Keflex and Keppra. She was advised to continue follow-up with OBGYN neurology. Patient was agreeable to this plan. Given strict return precautions. Differential Diagnosis Differential Diagnosis: Seizure disorder, UTI, substance abuse, alcohol withdrawal, pyelonephritis Lab Data 03/01/25 09:19 03/01/25 09:19 Labs: Lab Results 03/01/25 03/01/25 Range/Units 09:19 10:33 WBC 6.4 (4.5-10.0) K/mm3 RBC 4.12 L (4.2-5.4) M/mm3 Hgb 12.6 (12.0-15.0) g/dL Hct 36.0 L (37.0-47.0) % MCV 87.4 (80-100) fl MCH 30.6 (26-34) pg MCHC 35.0 (32-36) g/dl RDW 12.9 (11.5-14.5) % Plt Count 155 (150-375) k/mm3 MPV 11.8 H (7.4-10.4) fl Immature Gran % (Auto) 0.3 (0-0.5) % Neut % (Auto) 73.8 H (45.5-73.1) % Lymph % (Auto) 17.1 L (18.3-44.2) % Wake % (Auto) 8.0 (2.6-8.5) % Eos % (Auto) 0.6 (0-4.4) % Baso % (Auto) 0.2 (0.2-1.2) % Lymph # (Auto) 1.09 (0.9-3.2) K/mm3 Wake # (Auto) 0.5 (0.1-0.6) K/mm3 Eos # (Auto) 0.0 (0-0.3) K/mm3 Baso # (Auto) 0.0 (0.0-0.1) K/mm3 Abs Immat Gran (auto) 0.02 (0.00-0.031) K/mm3 Absolute Neuts (auto) 4.7 (1.3-6.7) K/mm3 Absolute Nucleated RBC 0.000 (0.0-0.012) K/mm3 Nucleated RBC % 0.0 (0.0-0.2) % Sodium 135 L (137-145) mmol/L Potassium 3.8 (3.4-5.0) mmol/L Chloride 108 H (98-107) mmol/L Carbon Dioxide 20 L (22-30) mmol/L Anion Gap 7 (4-12) mmol/L BUN 8 (7-17) mg/dL Creatinine 0.48 L (0.7-1.0) mg/dL Estim Creat Clear Calc 141 ml/min Estimated GFR > 60 (59 - ) Glucose 80 (65-110) mg/dL Calcium 8.4 (8.4-10.2) mg/dL Total Bilirubin 0.4 (0.2-1.3) mg/dL AST 23 (14-36) U/L ALT 16 (6-35) U/L Alkaline Phosphatase 32 L (38-126) U/L Total Protein 6.8 (6.3-8.2) g/dL Albumin 3.8 (3.5-5.1) g/dL Beta HCG, Quant 419103.00 mIU/ML Urine Color Yellow (Yellow) Urine Appearance Cloudy H (Clear) Urine pH 8.0 (5.0-9.0) Ur Specific [place] 1.019 (1.001-1.035) Urine Protein Trace (Negative) mg/dL Urine Glucose (UA) Negative (Negative) mg/dL Urine Ketones Trace H (Negative) mg/dL Ur Blood (Man) Negative (Negative) Urine Nitrate Negative (Negative) Urine Bilirubin Negative (Negative) Urine Urobilinogen 1.0 (<2.0) mg/dL Add Ur Microanalysis Reviewed Leukocyte Esterase Rfl Trace H (Negative) KELLEN/UL Urine RBC 0-2 (0-2) /hpf Urine WBC 0-5 (0-3) /hpf Ur Squamous Epith Cells Many H (Few) /hpf Urine Bacteria 1+ H /hpf Urine Casts 0-2 Imaging Data Radiologist's impression: ITS Impressions Head CT 03/01/25 11:01 IMPRESSION: 1. No acute intracranial findings. Discharge Plan Discharge Clinical Impression: Epileptic seizure, First trimester UTI (urinary tract infection) Qualifiers: Urinary tract infection type: acute cystitis Hematuria presence: without hematuria Qualified Code(s): N30.00 - Acute cystitis without hematuria Patient Disposition: Home Condition: Stable Instructions: Antibiotic Form, Epilepsy (ED) Additional Instructions: Take Keflex as prescribed. Follow-up with your OBGYN as scheduled. With your neurologist as scheduled. Return to the ED for any new or worsening symptoms. Patient Language: Tajik Prescriptions: New cephalexin 500 mg capsule 500 mg PO Q12H Qty: 8 0RF ondansetron 4 mg tablet,disintegrating 4 mg PO Q8H PRN (Reason: nausea and vomiting) Qty: 12 0RF levetiracetam [Keppra] 750 mg tablet 1,500 mg PO BID Qty: 60 0RF No Action valproic acid (as sodium salt) 250 mg/5 mL solution sulfamethoxazole-trimethoprim [Bactrim DS] 800-160 mg tablet 1 tablet PO Q12H Qty: 14 0RF levetiracetam [Keppra] 500 mg tablet 1,500 mg PO BID 90 Days Qty: 0 0RF cephalexin 500 mg capsule 500 mg PO Q6H 7 Days Qty: 28 0RF amoxicillin 875 mg tablet 875 mg PO Q12H Qty: 14 0RF Follow-up/Referrals: Sorin Gloria MD [Physician, Neurology] PHYSICIAN,MANUFACTURING ANALYST [Primary Care Provider, Internal Medicine]
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
--- OUTSIDE RECORDS SUMMARY | 2025-03-01 10:19 | XMS_ITS | Encounter Summary ---
Author Organization [facility] Address [address] [place] [address] [place] [address] Care Team Providers Care Mannequin Refinisher Name Role Phone Unavailable Primary Care Provider Unavailabl e Reason for Visit * Reason Onset Date Comments Scheduling 12/31/2019 Called to shanti devlin appt for US/M[facility] visit. Left v.mail for patient to return call. will schedule week of 01/19 Encounter Details Date Type Department Care Team (Late st Contact Info) Description 12/31/2019 Telephone [facility] [address] [place] [address] Deann Quintana SN Scheduling (Called to schedule appt for US/MFM visit. Left v.mail for patient to return call. 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 Left v.mail for patient to return call. will schedule week of 01/19 documented in this encounter Plan of Treatment Not on file documented as of this encounter Visit Diagnoses Not on filedocumented in this encounter Additional Health Concerns Infection Onset Date Last Indicated Resolved Time MRSA Hx Comment:Added from external infection. Source: [facility]. 06/24/2023 documented as of this encounter
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
[2025-03-01 10:27] LABS: Alanine Aminotransferase 16 U/L (6-35); Albumin Level 3.8 g/dL (3.5-5.1); Alkaline Phosphatase 32 U/L (38-126); Anion Gap 7 mmol/L (4-12); Aspartate Amino Transferase 23 U/L (14-36); Bilirubin,Total 0.4 mg/dL (0.2-1.3); Blood Urea Nitrogen 8 mg/dL (7-17); Calcium 8.4 mg/dL (8.4-10.2); Carbon Dioxide 20 mmol/L (22-30); Chloride 108 mmol/L (98-107); Estimated CRCL calculation 141 ml/min; Estimated Glomerular Filt Rate > 60; Glucose 80 mg/dL (65-110); Potassium 3.8 mmol/L (3.4-5.0); Sodium 135 mmol/L (137-145); Total Protein 6.8 g/dL (6.3-8.2)
[2025-03-01] MEDS: levETIRAcetam 1500MG/NACL100ML 1,500 MG/100 ML BAG 400 MG IVPB (10:27)
[2025-03-01] MEDS: SODIUM CHLORIDE 0.9% IV 1,000 ML 999 ML IV CONT (10:29)
[2025-03-01] MEDS: ONDANSETRON INJ 4 MG/2 ML VIAL IV PUSH (10:39)
--- NOTE | 2025-03-01 10:43 | PC.NURSE ---
Pt to CT scan via stretcher at this time. NS infusing.
[2025-03-01 10:59] LABS: Add Urine Microscopic? YES; Appearance Urine Cloudy (Clear); Glucose Urine UA Negative (Negative); Leukocyte Esterase Ur Trace LEU/UL (Negative); Need Manual Microscopic Reviewed; Nitrate Urine Negative (Negative); Non Pathogenic Casts 0-2; Specific Grav Ur 1.019 (1.001-1.035)
[2025-03-01] MEDS: ACETAMINOPHEN 500 MG TABLET 1000 MG PO (11:03)
[2025-03-01] MEDS: cefTRIAXone 1 GM in SODIUM CHLORIDE 0.9% IV 50 ML 100 ML IVPB (11:17)
[2025-03-01] MEDS: levETIRAcetam 1000MG/NACL100ML 1,000 MG/100 ML BAG 400 MG IVPB (11:42)
--- NOTE | 2025-03-01 15:14 | PCCCNOTE ---
-I was called to ER for pt needing a ride home to [place]. She stated she lives in [place] and this is where the ambulance brought her. She has not been able to reach any family members or friends to transport her home. I called [facility] shaye services and they do not have busses that go to [place] on weekends. Doesnt qualify for an ambulance at this point. With permission from Jessica Burdick neurocritical care physician a Drug Safety Physician cab ride was set up to transport pt home. Cr
--- NOTE | 2025-03-01 15:26 | PCCCNOTE ---
03/01-at 1520- While pt in lobby waiting on cab a rapid response was called on pt - pt had a witnessed seizure and transported back to the ER dept. Milieu Manager Cab cancelled, NEO
== END 2025-03-01 14:59 | disposition home or self-care (01) ==
PROVIDERS: Emergency Provider Student in an Organized Health Care Education/Training Program
DX: O26.891 Other specified pregnancy related conditions, first trimester (principal); G40.909 Epilepsy, unspecified, not intractable, without status epilepticus; O23.11 Infections of bladder in pregnancy, first trimester; N30.00 Acute cystitis without hematuria; O99.331 Smoking (tobacco) complicating pregnancy, first trimester; F17.210 Nicotine dependence, cigarettes, uncomplicated; Z3A.00 Weeks of gestation of pregnancy not specified
CPT/HCPCS: 36415; 70450; 80053; 81001; 84702; 85025; 93005; 96365; 96367; 96375; 99284; A9270; J0696; J1953; J2405; J7030

== ENCOUNTER 2025-03-01 15:29 | Observation (INO) | payer SELFPAY ==
--- OUTSIDE RECORDS SUMMARY | 2024-10-21 14:30 | XMS_ITS ---
Author Organization [facility] Address [address] [place] [address] Phone [phone] Care Team Providers Care Tar Leveler Name Role Phone Cindy Sebastian MD Primary Care Provider [phone] REASON FOR VISIT returning pt, psych eval Medications Medication SIG (Take, Route, Frequency, Duration) Notes Start Date End Date Diagnosis (ICD Code) Status ZyPREXA 10 MG Tablet 1 tablet Orally Once a day bedtime; Duration: 30 day(s) 04/10/2016 Bipolar 1 disorder (ICD_10 - F31.9) Active busPIRone HCl 15 MG Tablet 1 tablet Orally Three times a day; Duration: 30 days 04/10/2016 Bipolar 1 disorder (ICD_10 - F31.9) Active Social History Sex Observation Social History Observation Description Sex Observation Female Sexual Orientation Social History Observation Description Sexual Orientation Straight or heterose xual Gender Identity Social History Observation Description Gender Identity Female Encounters Date Time Type Facility Location Provider Diagnosis 10/21/2024 02:30 PM Office Visit [address] [place] [address] Rubén Jaz Plan Of Treatment No Information Medical (General) History Surgical History Surgery Date(Month/Year) endometrosis laposcopy Hospitalization History Reason Date(Month/Year) MH Seizures Progress Notes * SINGH RobertDarianOB:1995 (29 yo F)Acc No.[id number]:10/21/2024 UNLOCKED PROGRESS NOTE Patient: Liseth CONDON Provider: Araseli Sebastian :1995 A ge:29 Y S ex:Female Date:10/21/2024 Address:[address] [place], [place] [id number] Subjective: * Chief Complaints: * 1 . Returning pt, psych eval. * Screening: * * Medical History: * Medications: T aking ZyPREXA 10 MG Tablet 1 tablet Orally Once a day bedtime , Taking busPIRone HCl 15 MG Tablet 1 tablet Orally Three times a day Objective: * Vitals: Assessment: Plan: * Treatment: * * Electronic signature of Cindy Sebastian MD, [id number] on 03/09/2025 at 07:45 AM PLANT TOUR GUIDE Sign off status: Pending * Provider: Araseli Sebastian Date: 0 10/21/2024 Generated for Mana mckeon/Konstantin/Jesus Alberto on: 1 07:45 AM PLANT TOUR GUIDE
--- OUTSIDE RECORDS SUMMARY | 2024-12-29 10:40 | XMS_ITS ---
Author Organization [facility] Address [address] [place] [address] Phone [phone] Care Team Providers Care Nutrition Club Ambassador Name Role Phone Jaz KRISHNAN, Cindy Primary Care Provider [phone] Chan Nieves APRN Unavailable REASON FOR VISIT 3 Week F/U Medications [...] disorder), combined type (ICD_10 - F90.2) Active [place] Carbonate ER 300 MG Tablet Extended Release [...] Provider Diagnosis 12/29/2024 10:40 AM Office Visit [address] [place] [address] Chan Nieves Plan Of Treatment No Information Medical (General) History Surgical History Surgery Date(Month/Year) endometrosis laposcopy Hospitalization History Reason Date(Month/Year) MH Seizures Progress Notes * Dayanara SINGHOB:1995 (29 yo F)Acc No.[id number]:12/29/2024 UNLOCKED PROGRESS NOTE Patient: Liseth CONDON Provider: Maryam Nieves DNP, PMDEBORAP-BC :1995 A ge:29 Y S ex:Female Date:12/29/2024 Address:[address] [place], [place] [id number] Pcp:Cindy Sebastian Subjective: * Chief Complaints: * 1 . 3 Week F/U. * Screening: * * Medical History: * Medications: T aking [place] Carbonate ER 300 MG Tablet Extended Release [...] * Electronic signature of Duncan Nieves APRN, [id number] on 03/09/2025 at 07:45 AM MEAT STOCK CLERK Sign off status: Pending * Provider: Maryam Nieves DNP, PMDEBORAP-BC Date: Generated for Mana mckeon/Konstantin/Jesus Alberto on: 1 07:45 AM MEAT STOCK CLERK
--- NOTE | ~2025-03-01 | US_ITS ---
EXAMINATION: US OB <= 14 weeks fetus DATE: 03/02/2025 11:22 INDICATION: Seizure with fall onto abdomen during first trimester TECHNIQUE: Real-time pelvic ultrasound utilizing transabdominal probe was performed. The interpreting radiologist was not present for the study. COMPARISON: None. FINDINGS: The uterus measures 12.4 x 7.6 x 9.2 cm. There is an intrauterine gestational sac. A yolk sac and pole are identified. The crown rump length measures 3.0 cm, which correlates with an estimated gestational age of 9 weeks and 6 days. heart motion is identified measuring 155 beats per minute (bpm) by M-mode Doppler. No evident subchorionic hematoma. The right ovary measures 3.6 x 3.4 x 1.6 cm. The left ovary measures 3.4 x 2.5 x 1.9 cm. Vascular flow identified at both ovaries on color Doppler. There is no free fluid in the pelvis. IMPRESSION: 1. Single living fetus with heart rate of 155 bpm. 2. Gestational age by ultrasound of 9 weeks 6 day(s) +/- 6 day(s) with ultrasound estimated date of delivery (IRMA) of 09/29/2025. Reviewed, dictated and finalized at location A. L PRODUCTS VIEWER IMPRESSION: 1. Single living fetus with heart rate of 155 bpm. 2. Gestational age by ultrasound of 9 weeks 6 day(s) +/- 6 day(s) with ultraso und estimated date of delivery (IRMA) of 09/29/2025.
[2025-03-01 15:29] VITALS: BP 120/57; PULSE 75; RESP 16; TEMP 36.4; O2SAT 100
[2025-03-01 15:33] VITALS: PULSE 86
--- NOTE | 2025-03-01 15:35 | ED_ITS ---
HPI - Seizure General Chief Complaint: Seizure Stated Complaint: seizure Time Seen by Provider: 03/01/25 15:29 Source: patient Mode of arrival: wheelchair Limitations: no limitations History of Present Illness HPI Narrative: Patient seen here earlier today for same thing. Patient states that she was waiting for a taxi to go home when she had another seizure. Rapid response was called. Patient reports headache at this time again. Denies any other changes in symptoms. Related Data Allergies Allergy/AdvReac Type Severity Reaction Status Date / Time codeine Allergy Severe Dyspnea / Verified 03/01/25 18:27 SOB Review of Systems Review of Systems: All systems reviewed & are unremarkable except as noted in HPI and below PMFSH Past Medical History Medical History Miscarriage Epilepsy with status epilepticus, not intractable Post-traumatic stress disorder, chronic Family History Family History Other Family history of malignant neoplasm of breast Social History Social History Smoking status: Never smoker Tobacco type: cigarettes Second hand tobacco smoke exposure: Yes Alcohol intake: former Substance use: current Substance use type: marijuana Last use: 03/01/2025 Lack of Transportation: YES Lack of Food: Often True Current Housing: I Have Housing Concerned About Future Housing: YES Difficulty Paying Gas/Electric Bills: No Difficulty Paying for Meds: YES Currently Unemployed: No Education: Associate Degree Difficulty w/ Childcare or Family Care: No Living arrangements: with family Gender identity (if verbalized by the patient): Female Sexual Orientation (if Verbalized by the Patient): Straight or Heterosexual Spiritual care concerns: No Exam Narrative: APPEARANCE: No acute distress, nontoxic, resting in bed EYES: EOMI HEENT: Normocephalic, atraumatic, OMM RESPIRATORY: No respiratory distress Clear to auscultation bilaterally with no rhonchi wheezing or rales. CARDIOVASCULAR: Regular rate and rhythm without murmurs rubs or gallops. ABDOMINAL: Soft, nontender, nondistended, no rebound or guarding MUSCULOSKELETAl: Moves all extremities. No clubbing, cyanosis or edema. NEURO: Awake and alert. Following commands, speech normal, no focal deficits SKIN:: Warm, dry. No rashes lesions or abrasions PSYCHIATRIC: Normal affect/mood, Course Vital Signs Vital signs: Vital Signs Temperature 97.6 F 03/01/25 15:29 Pulse Rate 75 03/01/25 15:29 Respiratory Rate 16 03/01/25 15:29 Blood Pressure 120/57 L 03/01/25 15:29 Pulse Oximetry 100 03/01/25 15:29 Oxygen Delivery Room Air 03/01/25 15:29 Temperature 98.3 F 03/01/25 17:24 Pulse Rate 60 03/01/25 17:24 Respiratory Rate 16 03/01/25 17:24 Blood Pressure 102/58 L 03/01/25 17:24 Pulse Oximetry 98 03/01/25 17:24 Oxygen Delivery Room Air 03/01/25 18:35 MDM MDM Narrative Medical decision making narrative: 29-year-old female Presenting for seizures. On initial evaluation patient was in no acute distress afebrile, hemodynamic stable. Differentials include but are not limited to: Seizure disorder, UTI, substance abuse, alcohol withdrawal, pyelonephritis Patient seen here earlier today for seizure activity as well. Given recurrence of her seizure activity despite increased dose of Keppra, I did discuss the case with Dr. Gloria, neurology, recommends increasing her b.i.d. Keppra to 2000 mg, recommends an EEG and will see the patient as a consult. Case was discussed with Dr. Barreto, Software Test Manager, who will see the patient as a consult. Case was discussed with hospitalist who will admit the patient. Differential Diagnosis Differential Diagnosis: Seizure disorder, UTI, substance abuse, alcohol withdrawal, pyelonephritis Discharge Plan Discharge Clinical Impression: Epileptic seizure, UTI (urinary tract infection), First trimester Patient Disposition: Still a Patient Condition: Stable
--- OUTSIDE RECORDS SUMMARY | 2025-03-01 16:35 | XMS_ITS | Clinical Summary ---
Author Organization [facility] Address [address] [place] [id number] Care Team Providers Care Winder Helper Name Role Phone None, Provider MD Unavailable [...] (50 mg total) by mouth daily. Active promethazine (PHENERGAN) [address] 1 suppository (25 mg total) rectally every 6 (six) hours as needed for Nausea. Active clonazePAM (KLONOPIN) 1 MG tablet Take 1 tablet (1 mg total) by mouth 3 (three) times daily as needed for Anxiety. Active Multiple Vitamins-Minerals (MULTIVITAMIN ADULT, MINERALS,) Tab Active Turmeric (QC TUMERIC COMPLEX) 500 MG Cap Active doxylamine-pyridox ine EC (DICLEGIS) 10-10 MG tablet Take two tablets by mouth at bedtime on day 1 and 2. If symptoms persist, take 1 tablet by mouth in morning and 2 tablets by mouth at bedtime on day 3. If symptoms persist, take 1 tablet by mouth in morning, 1 tablet by mouth mid-afternoon, and 2 tablets by mouth at bedtime on day 4. Maximum dose: doxylamine 40 mg/pyridoxine 40 mg (4 tablets) per day. 30 tablet 02/05/20 25 Active ondansetron (ZOFRAN-ODT) 4 MG disintegrating tablet Take 1 tablet (4 mg total) by mouth every 8 (eight) hours as needed for Nausea. 20 tablet 02/05/20 25 Active ondansetron (ZOFRAN-ODT) 4 MG disintegrating tablet 05/18/19 24 025 Discontin ued(Dupli dolores Med) Active Problems Problem Noted Date Diagnosed Date Sinus arrhythmia 08/20/2022 Sinus bradycardia 08/20/2022 Status epilepticus 08/17/2022 Uterine contractions during 06/22/2020 Leakage of amniotic fluid 06/13/2020 Kidney stone 03/06/2020 Pyelonephritis 10/16/2019 Status epilepticus 11/30/2018 History of psychosis 06/22/2017 Overview (10/29/2020): Following first delivery Dysuria 09/01/2016 Acute cystitis 06/13/2016 Tension type headache 05/16/2016 BMI 28.0-28.9,adult 05/15/2016 Headache, migraine 05/13/2016 Vesicoureteral reflux, bilateral 05/13/2016 PTSD (post-traumatic stress disorder) 12/15/2014 Tobacco use 12/14/2014 Anxiety 11/24/2014 Endometrial disorder 09/18/2014 Threatened premature labor, not delivered 2014 Overview (10/29/2020): Date Onset: 05/28/2014 Generalized nonconvulsive seizure 04/23/2014 Seizures 04/13/2014 Overview (10/29/2020): Date Onset: 04/24/2014 - [...] 04/13/2014 Overview (10/29/2020): At age 14 [place] 03/13/2014 Overview (10/29/2020): Date Onset: 03/13/2014 complicated by tobacco use 03/13/2014 Overview (10/29/2020): Date Onset: 03/13/2014 Second trimester bleeding 03/13/2014 Overview (10/29/2020): Date Onset: 03/13/2014 Nicotine dependence 06/11/2012 Scoliosis 06/11/2012 Uncomplicated asthma 06/11/2012 Overview (10/29/2020): Albuterol PRN Attention deficit hyperactivity disorder (ADHD) 08/18/2009 Parent/child conflict 08/18/2009 Comments Yes Resolved Problems Problem Noted Date Diagnosed Date Resolved Date Encounter for preventive health examination 06/11/2012 11/01/2020 Encounters Date Type Department Care Team Description 02/04/2025 9:31 AM GRADES 9 THRU 12 VISITING TEACHER - 02/04/2025 2:36 PM GRADES 9 THRU 12 VISITING TEACHER Emergency [facility] Emergency Room [address] [place] [address] Celine Heredia MD Seizure- Prior History Of Discharge Disposition: Home or Self Care (Routine Discharge) 02/04/2025 Travel from Last 3 Months Social History [...] place to sleep or slept in a detention (including now)? No 08/18/2022 Housing Stability Vital [...] Sex Assigned at Female 04/09/2024 1:42 PM GRADES 9 THRU 12 VISITING TEACHER Legal Sex Female 7:43 PM CDT Gender Identity Female 07/24/2024 7:30 PM CDT Sexual Orientation Straight 07/24/2024 7: 30 PM CDT Last Filed Vital Signs Vital Sign Reading Time Taken Comments Blood Pressure 96/64 02/04/2025 2:34 PM GRADES 9 THRU 12 VISITING TEACHER Pulse 64 02/04/2025 2:34 PM GRADES 9 THRU 12 VISITING TEACHER Temperature 36.4 C (97.5 F) 02/04/2025 2:34 PM GRADES 9 THRU 12 VISITING TEACHER Respiratory Rate 18 02/04/2025 2:34 PM GRADES 9 THRU 12 VISITING TEACHER Oxygen Saturation 99% 02/04/2025 2:34 PM GRADES 9 THRU 12 VISITING TEACHER Inhaled Oxygen Concentration - - Weight 64.4 kg (142 lb) 02/04/2025 9:34 AM GRADES 9 THRU 12 VISITING TEACHER Height 162.6 cm (5' 4) 02/04/2025 9:34 AM GRADES 9 THRU 12 VISITING TEACHER Body Mass Index 24.37 02/04/2025 9:34 AM GRADES 9 THRU 12 VISITING TEACHER Plan of Treatment Health Maintenance Due Date Last Done Comments Hepatitis B Vaccines (3 of 3 - 3-dose series) 01/02/1996 1995, 1995, 1995 Annual Physical 1998 DTaP, Tdap and Td Vaccines (6 - Tdap) 08/23/2006 08/22/2006, 08/22/2006, 05/23/2000, Additional history exists Pneumococcal Vaccine: Pediatrics (0 to 5 Years) and At-Risk Patients (6 to 49 Years) (1 of 2 - PCV) 2014 HPV Vaccines (1 - 3-dose SCDM series) 2022 COVID-19 Vaccine (3 - season) 2024 12/21/2020, 11/26/2020 Influenza Adult (#1) 2024 12/30/2020, 12/20/2011, 12/26/2010 Cervical Cancer Screening Pap Smear (Age 21 to 29) Every 3 Years 08/18/2026 08/19/2023, 06/13/2020 Cervical Cancer Screening 08/18/2026 RSV Immunization or 60+ Years (1 - 1-dose 75+ series) 2070 Hepatitis A Vaccines Completed 05/10/2001, 05/24/19 Meningococcal Vaccine Aged Out 08/22/2006 No dangelo lisa eligible based on patient's age to complete this topic Hepatitis C Completed 09/26/2023, 03/09/2020 Meningococcal B Vaccine Aged Out No l [...] safety measures Lifestyle No Sonam Holt RN Additional Health Concerns Infection Onset Date Last Indicated MRSA Comment:06/24/23 urine (NOLVIA) 06/24/2023 06/24/2023 Insurance Advance Directives * Full Code (Latest Code [...] 10:50 AM 09/16/2019 3:43 PM Care Teams Winder Helper Relationship Specialty Start Date End Date None, Provider, PCP - General UNKNOWN PHYSICIAN SPECIALTY 08/31/23 None, ProviderMD 08/17/22 Alexy Ochoa MD [address] [address] [place] 08/31/23 None, Provider, UNKNOWN PHYSICIAN SPECIALTY 09/22/24
--- OUTSIDE RECORDS SUMMARY | 2025-03-01 16:35 | XMS_ITS | Encounter Summary ---
Author Organization [facility] Address [address] [place] [address] [place] [address] Care Team Providers Care Telemedicine Physician Name Role Phone Unavailable Primary Care Provider Unavailabl e Reason for Visit * Reason Onset Date Comments Scheduling 12/31/2019 Called to shanti devlin appt for US/[facility] visit. Left v.mail for patient to return call. will schedule week of 01/19 Encounter Details Date Type Department Care Team (Late st Contact Info) Description 12/31/2019 Telephone [facility] [address] [place] [address] Deann Quintana SN Scheduling (Called to schedule [...] on file Legal Sex Female 12:37 PM OPEN HEARTH FURNACE OPERATOR Gender Identity Not on file Sexual Orientation [...] PM CDT Called to schedule appt for [facility] visit. Left v.mail for patient to return call. will schedule week of 01/19 documented in this encounter Plan of Treatment Not on file documented as of this encounter Visit Diagnoses Not on filedocumented in this encounter Additional Health Concerns Infection Onset Date Last Indicated Resolved Time MRSA Hx Comment:Added from external infection. Source: [facility] - [facility]. 06/24/2023 documented as of this encounter
[2025-03-01 16:37] VITALS: BP 93/43; PULSE 62; RESP 19; O2SAT 99
[2025-03-01 17:24] VITALS: BP 102/58; PULSE 60; RESP 16; TEMP 36.8; O2SAT 98
--- NOTE | 2025-03-01 17:25 | WPCEDHO ---
ED Hand Off Checklist All vitals saved:y IV Site documented:y All med administrations documented:y Triage Note Triage Note Pt to the ED from main lobby for 03/01/25 15:29 evaluation of seizure like activity. Pt has hx of seizures. Pt complains of head pain but it is unknown if pt hit head. Pt has mild abd cramping but has a UTI. Allergies codeine Allergy (Severe, Verified 04/06/23 18:59) Dyspnea / SOB Family History (Last Reviewed 03/01/25 @ 15:35 by Randall Rodriguez DO) Other Family history of malignant neoplasm of breast Interventions/Assessments Cardiac Monitoring Start: 03/01/25 15:29 Freq: Status: Active Protocol: Document 03/01/25 15:33 ELB (Rec: 03/01/25 15:34 ELB [id number]) Junior Programmer Analyst Assessment Junior Programmer Analyst Yes Applied Pulse Rate (60-100) 86 EKG Rythm Sinus Rhythm IV / Saline Lock, Insert Start: 03/01/25 15:29 Freq: Status: Active Protocol: Document 03/01/25 15:33 ELB (Rec: 03/01/25 15:34 ELB [id number]) IV Assessment Peripheral Access Left Wrist IV Catheter Access Initiated IV Insertion Date 03/01/25 IV Insertion Time 15:33 Catheter Gauge 20 IV Insertion 1 Attempts Ultrasound Used for No Placement IV Site Assessment WNL IV Care and WNL Maintenance Last Vital Signs Temperature 98.3 F 03/01/25 17:24 Pulse Rate 60 03/01/25 17:24 Respiratory Rate 16 03/01/25 17:24 Pulse Oximetry 98 03/01/25 17:24 Blood Pressure 102/58 L 03/01/25 17:24 Blood Pressure Mean 72 03/01/25 17:24 Oxygen Delivery Room Air 03/01/25 15:29 Weight 67.8 kg 03/01/25 15:29 Most Recent Suicide Severity Rating Suicide Severity Rating NO RISK INDICATED 03/01/25 15:29
--- OUTSIDE RECORDS SUMMARY | 2025-03-01 18:09 | XMS_ITS | Clinical Summary ---
Author Organization [facility] Address [address] [place] [id number] Care Team Providers Care Author'S Agent Name Role Phone None, Provider MD Unavailable [...] Department Care Team Description 02/04/2025 9:31 AM BEATING MACHINE OPERATOR - 02/04/2025 2:36 PM BEATING MACHINE OPERATOR Emergency [facility] Emergency Room [address] [place] [address] Celine Heredia MD Seizure- Prior History Of [...] slept in a custodial (including now)? No 08/18/2022 Housing Stability Vital [...] Sex Assigned at Female 04/09/2024 1:42 PM BEATING MACHINE OPERATOR Legal Sex Female 7:43 PM CDT Gender Identity Female 07/24/2024 7:30 PM CDT Sexual Orientation Straight 07/24/2024 7: 30 PM CDT Last Filed Vital Signs Vital Sign Reading Time Taken Comments Blood Pressure 96/64 02/04/2025 2:34 PM BEATING MACHINE OPERATOR Pulse 64 02/04/2025 2:34 PM BEATING MACHINE OPERATOR Temperature 36.4 C (97.5 F) 02/04/2025 2:34 PM BEATING MACHINE OPERATOR Respiratory Rate 18 02/04/2025 2:34 PM BEATING MACHINE OPERATOR Oxygen Saturation 99% 02/04/2025 2:34 PM BEATING MACHINE OPERATOR Inhaled Oxygen Concentration - - Weight 64.4 kg (142 lb) 02/04/2025 9:34 AM BEATING MACHINE OPERATOR Height 162.6 cm (5' 4) 02/04/2025 9:34 AM BEATING MACHINE OPERATOR Body Mass Index 24.37 02/04/2025 9:34 AM BEATING MACHINE OPERATOR Plan of Treatment Health Maintenance Due Date [...] 10:50 AM 09/16/2019 3:43 PM Care Teams Author'S Agent Relationship Specialty Start Date End Date None, Provider, PCP - General UNKNOWN PHYSICIAN SPECIALTY 08/31/23 None, ProviderMD 08/17/22 Alexy Ochoa MD [address] [address] [place] 08/31/23 None, Provider, UNKNOWN PHYSICIAN SPECIALTY 09/22/24
--- OUTSIDE RECORDS SUMMARY | 2025-03-01 18:09 | XMS_ITS | Encounter Summary ---
Author Organization [facility] Address [address] [place] [address] [place] [address] Care Team Providers Care Genetic Supervisor Name Role Phone Unavailable Primary Care Provider Unavailabl e Reason for Visit * Reason Onset Date Comments Scheduling 12/31/2019 Called to shanti devlin appt for US/MFM visit. Left v.mail for patient to return call. will schedule week of 01/19 Encounter Details Date Type Department Care Team (Late st Contact Info) Description 12/31/2019 Telephone [facility] [address] [place] [address] Deann Quintana SN Scheduling (Called to schedule [...] on file Legal Sex Female 12:37 PM LEATHER STAMPER Gender Identity Not on file Sexual Orientation [...] Author No 11/30/2018 6:27 PM CDT Tony Kreuger RN documented in this encounter Miscellaneous Notes * Telephone Encounter - Deann Quintana - 12/31/2019 3:02 PM CDT Called to schedule appt for [facility]. Left v.mail for patient to return call. will schedule week of 01/19 documented in this encounter Plan of Treatment Not on file documented as of this encounter Visit Diagnoses Not on filedocumented in this encounter Additional Health Concerns Infection Onset Date Last Indicated Resolved Time MRSA Hx Comment:Added from external infection. Source: [facility]. 06/24/2023 documented as of this encounter
[2025-03-01 18:19] VITALS: BMI 25.6
--- NOTE | 2025-03-01 18:26 | ADMGEN ---
This patient, Liseth Singh, was admitted to Medical Room 344-01. Patient/family oriented to hospital policies and general routines including ID bracelet, bed and alarms, visiting hours, pain management, procedures, bathroom and other care routines, personal items, smoking policy, room service/diet, and visiting hours. Information on how to activate the Rapid Response Team has been discussed. Patient/Family are encouraged to report perceived risks to care and to ask questions if they do not understand what they are told or what they should do.
[2025-03-01] MEDS: ACETAMINOPHEN 325 MG TABLET 650 MG PO (18:54)
[2025-03-01] MEDS: METOCLOPRAMIDE HCL INJ 10 MG/2 ML VIAL IV PUSH (18:55)
[2025-03-01] MEDS: SODIUM CHLORIDE 0.45% 1,000 ML 100 ML IV CONT (18:56)
--- NOTE | 2025-03-01 19:49 | PC.NURSE ---
DR POST SAID IT IS OKAY TO DO OB US ON SUNDAY
[2025-03-01 20:00] VITALS: BP 109/59; PULSE 60; PULSE 75; RESP 16; TEMP 36.4; O2SAT 98
--- NOTE | 2025-03-01 20:30 | PM.IMHP2 ---
H&P: HPI History of Present Illness Date/Time: 03/01/25 20:30 Chief Complaint: Seizures Narrative: 29 y/o F with PMH of seizures and PTSD presents here with breakthrough seizures. The patient [place] here on 03/01 [place] via EMS initially for further evaluation of seizures. She has a past medical history significant for seizure disorder. She is normally on Keppra 1500 mg b.i.d. however she has been out of her Keppra for the past week due to loss of insurance and inability to fill her medications. This resulted in her having 3 seizures at a local gas station that reportedly lasted less than 1 minute. Per chart review, upon arrival to the emergency department she reported a frontal headache and nausea without vomiting. She has also been experiencing urinary urgency. Additionally she reports she is currently . LMP 12/24. , 3 miscarriages and 1 ectopic. She went to her 1st OB appointment on Sunday but was turned away and told she did not have insurance, has not had her confirmation ultrasound. Typically follows with [facility] for her OB care due to her PMH of seizures - during her last she had a seizure which caused her to have her last child early due to decels. After her initial evaluation in the emergency department she was given 2500 of Keppra IV and given a prescription for her home Keppra. UA was also consistent with a UTI for which she was prescribed Keflex. She was discharged home and advised to follow-up with LOCOMOTIVE LUBRICATING SYSTEMS CLERK as well as Neurology. However, while she was waiting for a taxi to go home she had a seizure while still in the hospital entrance. A rapid response was called and she was transported back to the emergency department. When she was no longer postictal, she reported a headache again. Currently endorsing general malaise, chills, poor appetite, nausea/vomiting (related to ). Initial VS at presentation: 97.6? F, HR 75, R 16, 120/57, and 100% on RA. ED workup showed: No leukocytosis, no anemia, sodium 135, creatinine 0.48 and GFR >60, glucose 80, UA consistent with UTI however there are many epithelial cells. Head CT showed no acute intracranial findings. Beta quant was 181,170. Review of Systems Review of Systems: All systems reviewed & are unremarkable except as noted in HPI and below PMFSH Past Medical History Medical History Miscarriage Epilepsy with status epilepticus, not intractable Post-traumatic stress disorder, chronic Family History Family History Other Family history of malignant neoplasm of breast Social History Social History Smoking status: Never smoker Tobacco type: cigarettes Second hand tobacco smoke exposure: Yes Alcohol intake: former Substance use: current Substance use type: marijuana Last use: 03/01/2025 Lack of Transportation: YES Lack of Food: Often True Current Housing: I Have Housing Concerned About Future Housing: YES Difficulty Paying Gas/Electric Bills: No Difficulty Paying for Meds: YES Currently Unemployed: No Education: Associate Degree Difficulty w/ Childcare or Family Care: No Living arrangements: with family Gender identity (if verbalized by the patient): Female Sexual Orientation (if Verbalized by the Patient): Straight or Heterosexual Spiritual care concerns: No Meds Home Medications and Allergies Home Medications ?Medication ?Instructions ?Recorded ?Confirmed ?Type levetiracetam 500 mg tablet 1,500 mg (3 x 500 mg) PO BID 90 07/16/20 03/01/25 Rx (Keppra) days #0 tabs ondansetron 4 mg disintegrating 4 mg PO Q8H PRN nausea and 03/01/25 03/01/25 Rx tablet vomiting #12 tabs Allergies Allergy/AdvReac Type Severity Reaction Status Date / Time codeine Allergy Severe Dyspnea / Verified 03/01/25 18:27 SOB Vital Signs Vital Signs - 24 hr 03/01/25 15:29 03/01/25 15:33 03/01/25 16:37 Temperature 97.6 F Pulse Rate 75 86 62 Respiratory Rate 16 19 Blood Pressure 120/57 L 93/43 L Pulse Oximetry 100 99 Oxygen Delivery Room Air 03/01/25 17:24 Temperature 98.3 F Pulse Rate 60 Respiratory Rate 16 Blood Pressure 102/58 L Pulse Oximetry 98 Oxygen Delivery Quality VTE Prophylaxis VTE prophylaxis: mechanical ordered Assessment and Plan Assessment and plan (1) Epileptic seizure: Code(s): G40.909 - Epilepsy, unspecified, not intractable, without status epilepticus Status: Acute Assessment and Plan: Patient here with breakthrough seizures related to medication noncompliance. She has been out of her Keppra for the past week due to losing her insurance causing her to be unable to refill her prescription. Had 3 less than 1 minute seizures at a local gas station. Given Keppra 2500 mg IV in the ED and discharged home with a prescription for Keppra. However while she was waiting for a cab to go home as she had an additional breakthrough seizure prompting admission. Has thus far not required medications for seizure cessation. Complicated by and UTI which may be lowering her seizure threshold as well. - seizure precautions - Keppra 2 g b.i.d. IV - neurology consulted - obtain EEG (2) UTI (urinary tract infection): Qualifiers: Hematuria presence: without hematuria Urinary tract infection type: acute cystitis Qualified Code(s): N30.00 - Acute cystitis without hematuria Code(s): N39.0 - Urinary tract infection, site not specified Status: Acute Assessment and Plan: UA equivocal for infection, does have many epithelial cells present. However she is reporting mild abdominal cramping and urinary urgency increasing suspicion for UTI. - UA: Cloudy, trace ketones, trace leuk esterase, many epithelial cells, 1+ bacteria - UC pending - previous micro reviewed - started on Ceftriaxone on 1221, continued inpatient (3) First trimester : Code(s): Z34.91 - Encounter for supervision of normal , unspecified, first trimester Status: Acute Assessment and Plan: . LMP on 12/24/2024. IRMA 09/30/2025. Currently 9 weeks . Has not seen an OBGYN for this yet, had appointment with [facility] on Sunday. However they turned her away due to lack of insurance. She has previously followed with them due to her seizures previously complicating her pregnancies and resulting in early deliveries due to D cells related to seizure activity. Currently denies any vaginal bleeding. Does have mild abdominal cramping, however also has urinary urgency and UA equivocal for UTI. - OBGYN consulted, plan for ultrasound - reporting nausea/vomiting since onset of . Reglan scheduled due to persistence of nausea throughout the day and nighttime. Zofran for breakthrough nausea/vomiting. - daily Plan Diet: Regular GI Prophylaxis: N/a DVT Prophylaxis: SCDs IV fluids: NS 100 mL/hour x1 L Lines/Tubes: pIV Code Status: Full code Prior Studies I have reviewed the following patient records and this information was taken into consideration when formulating the assessment and plan.: previous labs, previous ER visits, previous hospitalizations and previous clinic visits Time Spent with Patient Time with patient: less than 45 minutes Hospitalist MIPS Advance Care Plan I have confirmed that the patient's Advanced Care Plan is present, code status is documented, or surrogate decision maker is listed in patient medical record.: Yes Medication Reconciliation I have utilized all available resources to obtain, update and review the patients current medications (includes all prescriptions, OTC, herbals, cannabis, and nutritional supplements).: Yes
[2025-03-01] MEDS: DOCUSATE SODIUM 100 MG CAPSULE PO (20:49)
[2025-03-01] MEDS: levETIRAcetam 1000MG/NACL100ML 1,000 MG/100 ML BAG 400 MG IVPB ×2 (22:43→23:18)
[2025-03-02] VITALS (9 sets, daily range): BP systolic 96–108; BP diastolic 49–67; PULSE 59–83; RESP 14–18; TEMP 36.6–36.8; O2SAT 99–100
[2025-03-02] MEDS: METOCLOPRAMIDE HCL INJ 10 MG/2 ML VIAL IV PUSH ×4 (00:09→17:19)
[2025-03-02] MEDS: levETIRAcetam 1000MG/NACL100ML 1,000 MG/100 ML BAG 400 MG IVPB ×4 (09:52→20:32)
[2025-03-02] MEDS: MULTIVIT/MIN/PREN/FOL AC/IRON TABLET 1 TAB PO (09:53)
[2025-03-02] MEDS: ONDANSETRON INJ 4 MG/2 ML VIAL IV PUSH (10:02)
[2025-03-02] MEDS: DOCUSATE SODIUM 100 MG CAPSULE PO ×2 (10:34→20:30)
--- NOTE | 2025-03-02 11:22 | PM.IMPN2 ---
Assessment and Plan Assessment and Plan (1) Epileptic seizure: Code(s): G40.909 - Epilepsy, unspecified, not intractable, without status epilepticus Status: Acute Assessment and Plan: Patient here with breakthrough seizures related to medication noncompliance. She has been out of her Keppra for the past week due to losing her insurance causing her to be unable to refill her prescription. Had 3 less than 1 minute seizures at a local gas station. Given Keppra 2500 mg IV in the ED and discharged home with a prescription for Keppra. However while she was waiting for a cab to go home as she had an additional breakthrough seizure prompting admission. Has thus far not required medications for seizure cessation. Complicated by and UTI which may be lowering her seizure threshold as well. - seizure precautions - Keppra 2 g b.i.d. IV - neurology consulted - obtain EEG (2) UTI (urinary tract infection): Qualifiers: Hematuria presence: without hematuria Urinary tract infection type: acute cystitis Qualified Code(s): N30.00 - Acute cystitis without hematuria Code(s): N39.0 - Urinary tract infection, site not specified Status: Inactive Assessment and Plan: UA equivocal for infection, does have many epithelial cells present. However she is reporting mild abdominal cramping and urinary urgency increasing suspicion for UTI. - UA: Cloudy, trace ketones, trace leuk esterase, many epithelial cells, 1+ bacteria - UC pending - previous micro reviewed - started on Ceftriaxone on 1221, continued inpatient (3) First trimester : Code(s): Z34.91 - Encounter for supervision of normal , unspecified, first trimester Status: Inactive Assessment and Plan: . LMP on 12/24/2024. IRMA 09/30/2025. Currently 9 weeks . Has not seen an OBGYN for this yet, had appointment with [facility] on Sunday. However they turned her away due to lack of insurance. She has previously followed with them due to her seizures previously complicating her pregnancies and resulting in early deliveries due to D cells related to seizure activity. Currently denies any vaginal bleeding. Does have mild abdominal cramping, however also has urinary urgency and UA equivocal for UTI. - OBGYN consulted, plan for ultrasound - reporting nausea/vomiting since onset of . Reglan scheduled due to persistence of nausea throughout the day and nighttime. Zofran for breakthrough nausea/vomiting. - daily Plan Diet: Regular GI Prophylaxis: N/a DVT Prophylaxis: SCDs IV fluids: NS 100 mL/hour x1 L Lines/Tubes: pIV Code Status: Full code Subjective Date/time seen: 03/02/25 11:22 Interval history: Patient was seen during the morning rounds today. Patient is feeling better. No shortness of breath or chest pain. No new seizure episode. Review of Systems Review of Systems: All systems reviewed & are unremarkable except as noted in HPI and below Objective Data Vital Signs Vital Signs: Vital Signs - 24 hr 03/01/25 15:29 03/01/25 15:33 03/01/25 16:37 Temperature 36.4 C Pulse Rate 75 86 62 Respiratory Rate 16 19 Blood Pressure 120/57 L 93/43 L Pulse Oximetry 100 99 Oxygen Delivery Room Air 03/01/25 17:24 03/01/25 18:35 03/01/25 20:00 Temperature 36.8 C 36.4 C Pulse Rate 60 75 Respiratory Rate 16 16 Blood Pressure 102/58 L 109/59 L Pulse Oximetry 98 98 Oxygen Delivery Room Air 03/01/25 20:00 03/01/25 20:00 03/02/25 00:00 Temperature Pulse Rate 60 59 L Respiratory Rate Blood Pressure Pulse Oximetry Oxygen Delivery Room Air 03/02/25 04:00 03/02/25 05:51 Temperature 36.6 C Pulse Rate 61 67 Respiratory Rate 14 Blood Pressure 105/59 L Pulse Oximetry 100 Oxygen Delivery Intake/Output Intake/Output: Intake & Output 02/27/25 02/28/25 03/01/25 03/02/25 23:59 23:59 23:59 23:59 Intake Total 100 390 Balance 100 390 Meds/Results Medications: Active Medications Generic Name Dose Route Start Last Admin Trade Name Freq PRN Reason Stop Dose Admin Acetaminophen 650 mg 03/01/25 18:42 03/01/25 18:54 Acetaminophen 325 Mg Tablet PO 650 mg Q4H PRN Administration Mild Pain (1-3) or Fever Calcium Carbonate 200 mg 03/01/25 18:42 Calcium Carbonate (Tums) 500 Mg (200 Mg Elemental) PO Q6H PRN Indigestion Docusate Sodium 100 mg 03/01/25 21:00 03/02/25 10:34 Docusate Sodium 100 Mg Capsule PO 100 mg Q12HR MYLES Administration Levetiracetam 1,000 mg in 100 mls @ 400 mls/hr 03/01/25 21:00 03/02/25 09:52 Keppra Iv IVPB 400 mls/hr Q12HR MYLES Administration Levetiracetam 1,000 mg in 100 mls @ 400 mls/hr 03/01/25 21:15 03/01/25 22:43 Keppra Iv IVPB 400 mls/hr Q12H MYLES Administration Ceftriaxone Sodium 1 gm/ 50 mls @ 100 mls/hr 03/02/25 11:00 Sodium Chloride IVPB Q24H MYLES Metoclopramide HCl 10 mg 03/02/25 00:00 03/02/25 05:59 Metoclopramide Hcl Inj 10 Mg/2 Ml Vial IV PUSH 10 mg Q6HR MYLES Administration Ondansetron HCl 4 mg 03/01/25 18:43 03/02/25 10:02 Ondansetron Inj 4 Mg/2 Ml Vial IV PUSH 4 mg Q6H PRN Administration Nausea And Vomiting Polyethylene Glycol 17 gm 03/02/25 09:00 03/02/25 10:39 Polyethylene Glycol 3350 17 Gm Powd.Pack PO 17 gm QAM [facility] Administration Vit/Calcium/Iron/Folic Ac 1 tab 03/02/25 09:00 03/02/25 09:53 Multivit/Min/Pren/Fol Ac/Iron Tablet PO 1 tab QAM [facility] Administration Quality VTE Prophylaxis VTE prophylaxis: mechanical ordered
[2025-03-02] MEDS: cefTRIAXone 1 GM in SODIUM CHLORIDE 0.9% IV 50 ML 100 ML IVPB (12:02)
--- NOTE | 2025-03-02 13:35 | P.CONS_ITS ---
Assessment and Plan Assessment and plan (1) First trimester : Code(s): Z34.91 - Encounter for supervision of normal , unspecified, first trimester Status: Acute Assessment and Plan: A: IUP at 9w5d, with epilepsy and breakthrough seizures. P: We reviewed risks/benefits/alternatives associated with continued antiepileptic treatment in . Keppra is thought to carry a low risk of defects, and I believe it is an appropriate choice for her during . We discussed the ultrasound exam findings. We discussed the borderline UA results. When she is discharged from [facility], she plans to follow up with MFM at [facility]. I will follow her while she is in the hospital. (2) Epileptic seizure: Code(s): G40.909 - Epilepsy, unspecified, not intractable, without status epilepticus Status: Acute HPI Data of Consult Date/Time: JITNEY DRIVER Consult Note 03/02/25 12:40 Requesting Physician: Antoni Vega MD Primary Care Provider: TRAFFIC CONTROL SIGNALER PHYSICIAN Consult Narrative Reason for consult: Seizures in Narrative: 29 y/o at 9w5d gestation by LMP 12/24/24, giving a due date of 09/30/25. She typically is seen by MFM at [facility]. However, she had a lapse in insurance, so she hasn't been seen. Moreover, she has not been able to take Keppra, and is now hospitalized for breakthrough seizures. She has little suprapubic discomfort, but no overt dysuria. She has no vaginal bleeding. Overall, she says she feels just fine today. She is receiving ceftriaxone for possible cystitis. Neurology has been consulted. Ultrasound exam shows a guerrero intrauterine gestation with crown-rump length consistent with 9w6d, confirming the LMP due date. FHR 155 bpm. Review of Systems Review of Systems: All systems reviewed & are unremarkable except as noted in HPI and below PMFSH Past Medical History Medical History History of ectopic Miscarriage Epilepsy with status epilepticus, not intractable Post-traumatic stress disorder, chronic Family History Family History Other Family history of malignant neoplasm of breast Social History Social History Smoking status: Never smoker Tobacco type: cigarettes Second hand tobacco smoke exposure: Yes Alcohol intake: former Substance use: current Substance use type: marijuana Last use: 03/01/2025 Lack of Transportation: YES Lack of Food: Often True Current Housing: I Have Housing Concerned About Future Housing: YES Difficulty Paying Gas/Electric Bills: No Difficulty Paying for Meds: YES Currently Unemployed: No Education: Associate Degree Difficulty w/ Childcare or Family Care: No Living arrangements: with family Gender identity (if verbalized by the patient): Female Sexual Orientation (if Verbalized by the Patient): Straight or Heterosexual Spiritual care concerns: No Meds Home Medications and Allergies Home Medications ?Medication ?Instructions ?Recorded ?Confirmed ?Type levetiracetam 500 mg tablet 1,500 mg (3 x 500 mg) PO B ID 90 07/16/20 03/01/25 Rx (Keppra) days #0 tabs ondansetron 4 mg disintegrating 4 mg PO Q8H PRN nausea and 03/01/25 03/01/25 Rx tablet vomiting #12 tabs Allergies Allergy/AdvReac Type Severity Reaction Status Date / Time codeine Allergy Severe Dyspnea / Verified 03/01/25 18:27 SOB Vital Signs Vital Signs - 24 hr 03/01/25 15:29 03/01/25 15:33 03/01/25 16:37 Temperature 97.6 F Pulse Rate 75 86 62 Respiratory Rate 16 19 Blood Pressure 120/57 L 93/43 L Pulse Oximetry 100 99 Oxygen Delivery Room Air 03/01/25 17:24 03/01/25 18:35 03/01/25 20:00 Temperature 98.3 F 97.6 F Pulse Rate 60 75 Respiratory Rate 16 16 Blood Pressure 102/58 L 109/59 L Pulse Oximetry 98 98 Oxygen Delivery Room Air 03/01/25 20:00 03/01/25 20:00 03/02/25 00:00 Temperature Pulse Rate 60 59 L Respiratory Rate Blood Pressure Pulse Oximetry Oxygen Delivery Room Air 03/02/25 04:00 03/02/25 05:51 03/02/25 08:00 Temperature 98 F Pulse Rate 61 67 62 Respiratory Rate 14 Blood Pressure 105/59 L Pulse Oximetry 100 Oxygen Delivery Exam Const: Orientation/consciousness: patient oriented x3 Other: Well-developed, well-nourished female in no acute distress. GI: Other: ABD: Soft, nontender, nondistended. No guarding or rebound tenderness. No hepatosplenomegaly. : Other: Pelvic exam deferred. Extrem: Other: Extremities: nontender with no edema Psych: Mental Status: mental status grossly normal Affect: normal affect
[2025-03-03] VITALS (10 sets, daily range): BP systolic 96–111; BP diastolic 49–61; PULSE 54–70; RESP 16–18; TEMP 36.2–36.8; O2SAT 98–100
[2025-03-03] MEDS: METOCLOPRAMIDE HCL INJ 10 MG/2 ML VIAL IV PUSH ×2 (00:20→05:16)
[2025-03-03] MEDS: DOCUSATE SODIUM 100 MG CAPSULE PO ×2 (09:29→20:20)
[2025-03-03] MEDS: MULTIVIT/MIN/PREN/FOL AC/IRON TABLET 1 TAB PO (09:29)
--- NOTE | 2025-03-03 09:42 | P.PNIM_ITS ---
Assessment and Plan Assessment and Plan (1) Epileptic seizure: Code(s): G40.909 - Epilepsy, unspecified, not intractable, without status epilepticus Status: Acute Assessment and Plan: Patient here with breakthrough seizures related to medication noncompliance. She has been out of her Keppra for the past week due to losing her insurance causing her to be unable to refill her prescription. Had 3 less than 1 minute seizures at a local gas station. Given Keppra 2500 mg IV in the ED and discharged home with a prescription for Keppra. However while she was waiting for a cab to go home as she had an additional breakthrough seizure prompting admission. Has thus far not required medications for seizure cessation. Complicated by and UTI which may be lowering her seizure threshold as well. - seizure precautions - Keppra 2 g b.i.d. IV switched to po today, home dose - neurology consulted - obtain EEG (2) UTI (urinary tract infection): Qualifiers: Hematuria presence: without hematuria Urinary tract infection type: acute cystitis Qualified Code(s): N30.00 - Acute cystitis without hematuria Code(s): N39.0 - Urinary tract infection, site not specified Status: Inactive Assessment and Plan: UA equivocal for infection, does have many epithelial cells present. However she is reporting mild abdominal cramping and urinary urgency increasing suspicion for UTI. - UA: Cloudy, trace ketones, trace leuk esterase, many epithelial cells, 1+ bacteria - UC pending - previous micro reviewed - started on Ceftriaxone on 1221, continued inpatient (3) First trimester : Code(s): Z34.91 - Encounter for supervision of normal , unspecified, first trimester Status: Inactive Assessment and Plan: . LMP on 12/24/2024. IRMA 09/30/2025. Currently 9 weeks . Has not seen an OBGYN for this yet, had appointment with [facility] on Sunday. However they turned her away due to lack of insurance. She has pr eviously followed with them due to her seizures previously complicating her pregnancies and resulting in early deliveries due to D cells related to seizure activity. Currently denies any vaginal bleeding. Does have mild abdominal cramping, however also has urinary urgency and UA equivocal for UTI. - OBGYN consulted, plan for ultrasound - reporting nausea/vomiting since onset of . Reglan scheduled due to persistence of nausea throughout the day and nighttime. Zofran for breakthrough nausea/vomiting. - daily Plan Diet: Regular GI Prophylaxis: N/a DVT Prophylaxis: SCDs IV fluids: NS 100 mL/hour x1 L Lines/Tubes: pIV Code Status: Full code Subjective Date/time seen: 03/03/25 09:42 Interval history: Patient was seen during the morning rounds today. No seizure activity noted. Patient is feeling better. No shortness of breath or chest pain. Review of Systems Review of Systems: All systems reviewed & are unremarkable except as noted in HPI and below Objective Data Vital Signs Vital Signs: Vital Signs - 24 hr 03/02/25 12:00 03/02/25 12:00 03/02/25 16:00 Temperature Pulse Rate 82 62 63 Respiratory Rate 16 Blood Pressure 106/58 L Pulse Oximetry 100 Oxygen Delivery 03/02/25 17:30 03/02/25 20:00 03/02/25 20:00 Temperature 36.8 C Pulse Rate 65 83 Respiratory Rate 18 Blood Pressure 96/67 L Pulse Oximetry 100 Oxygen Delivery Room Air 03/02/25 22:12 03/03/25 00:00 03/03/25 02:29 Temperature 36.6 C 36.4 C Pulse Rate 66 61 63 Respiratory Rate 18 18 Blood Pressure 108/49 L 96/49 L Pulse Oximetry 99 99 Oxygen Delivery 03/03/25 04:00 03/03/25 06:09 Temperature 36.2 C L Pulse Rate 55 L 66 Respiratory Rate 18 Blood Pressure 97/58 L Pulse Oximetry 99 Oxygen Delivery Intake/Output Intake/Output: Intake & Output 02/28/25 03/01/25 03/02/25 03/03/25 23:59 23:59 23:59 23:59 Intake Total 200 1330 700 Balance 200 1330 700 Meds/Results Medications: Active Medications Generic Name Dose Route Start Last Admin Trade Name Freq PRN Reason Stop Dose Admin Acetaminophen 650 mg 03/01/25 18:42 03/01/25 18:54 Acetaminophen 325 Mg Tablet PO 650 mg Q4H PRN Administration Mild Pain (1-3) or Fever Calcium Carbonate 200 mg 03/01/25 18:42 Calcium Carbonate (Tums) 500 Mg (200 Mg Elemental) PO Q6H PRN Indigestion Docusate Sodium 100 mg 03/01/25 21:00 03/03/25 09:29 Docusate Sodium 100 Mg Capsule PO 100 mg Q12HR MYLES Administration Ceftriaxone Sodium 1 gm/ 50 mls @ 100 mls/hr 03/02/25 11:00 03/02/25 12:32 Sodium Chloride IVPB Infused Q24H [facility] Infusion Levetiracetam 1,500 mg 03/03/25 21:00 Levetiracetam 500 Mg Tablet PO Q12HR MYLES Ondansetron HCl 4 mg 03/03/25 09:36 Ondansetron Hcl Odt 4 Mg Tablet PO Q6H PRN Nausea And Vomiting Polyethylene Glycol 17 gm 03/02/25 09:00 03/03/25 09:30 Polyethylene Glycol 3350 17 Gm Powd.Pack PO 17 gm QAM MYLES Administration Vit/Calcium/Iron/Folic Ac 1 tab 03/02/25 09:00 03/03/25 09:29 Multivit/Min/Pren/Fol Ac/Iron Tablet PO 1 tab QAM MYLES Administration Radiology Results: ITS Impressions Ultrasound 03/02/25 13:08 IMPRESSION: 1. Single living fetus with heart rate of 155 bpm. 2. Gestational age by ultrasound of 9 weeks 6 day(s) +/- 6 day(s) with ultrasound estimated date of delivery (IRMA) of 09/29/2025. Quality VTE Prophylaxis VTE prophylaxis: mechanical ordered
[2025-03-03] MEDS: ONDANSETRON HCL ODT 4 MG TABLET PO ×2 (09:48→19:38)
--- NOTE | 2025-03-03 16:22 | PM.GYNPNOP ---
COLLAR BAND CREASER - A/P Assessment and plan (1) First trimester : Code(s): Z34.91 - Encounter for supervision of normal , unspecified, first trimester Status: Acute Assessment and Plan: A: IUP at 9w6d, with breakthrough seizures. P: She says she is working on reinstating insurance so she can obtain her antiepileptic meds and be seen by her OB. I told her I am happy to see her in my office if she needs any interim care before being seen by MFM at [facility] [place]. Please call me if she needs anything else from an obstetric perspective during this hospital stay. Thanks! (2) Epileptic seizure: Code(s): G40.909 - Epilepsy, unspecified, not intractable, without status epilepticus Status: Acute Time Spent With Patient Time with patient: less than 15 minutes [employer]LL[employer]ASER- PN:Subj Post-Op Subjective Date/time seen: 03/03/25 16:22 Subjective: other (No seizure activity. Nausea under fairly good control.) Review of Systems Review of Systems: All systems reviewed & are unremarkable except as noted in HPI and below Exam Narrative: Abdomen: soft, nontender. Extremities: nontender. COLL[employer] B[employer] CREASER - PN: Obj Data Vital Signs Vital Signs: Vital Signs - 24 hr 03/02/25 17:30 03/02/25 20:00 03/02/25 20:00 Temperature 98.2 F Pulse Rate 65 83 Respiratory Rate 18 Blood Pressure 96/67 L Pulse Oximetry 100 Oxygen Delivery Room Air 03/02/25 22:12 03/03/25 00:00 03/03/25 02:29 Temperature 97.8 F 97.6 F Pulse Rate 66 61 63 Respiratory Rate 18 18 Blood Pressure 108/49 L 96/49 L Pulse Oximetry 99 99 Oxygen Delivery 03/03/25 04:00 03/03/25 06:09 03/03/25 08:00 Temperature 97.1 F L Pulse Rate 55 L 66 54 L Respiratory Rate 18 Blood Pressure 97/58 L Pulse Oximetry 99 Oxygen Delivery 03/03/25 12:00 03/03/25 14:00 03/03/25 16:00 Temperature 98.2 F Pulse Rate 57 L 56 L 64 Respiratory Rate 16 Blood Pressure 111/55 L Pulse Oximetry 100 Oxygen Delivery Intake/Output Intake/Output: Intake & Output 02/28/25 03/01/25 03/02/2503/03/25 23:59 23:59 23:59 23:59 Intake Total 200 1330 940 Balance 200 1330 940 Meds/Results Medications: Active Medications Generic Name Dose Route Start Last Admin Trade Name Freq PRN Reason Stop Dose Admin Acetaminophen 650 mg 03/01/25 18:42 03/01/25 18:54 Acetaminophen 325 Mg Tablet PO 650 mg Q4H PRN Administration Mild Pain (1-3) or Fever Calcium Carbonate 200 mg 03/01/25 18:42 Calcium Carbonate (Tums) 500 Mg (200 Mg Elemental) PO Q6H PRN Indigestion Cephalexin HCl 500 mg 03/03/25 21:00 Cephalexin 500 Mg Capsule PO Q12HR MYLES Docusate Sodium 100 mg 03/01/25 21:00 03/03/25 09:29 Docusate Sodium 100 Mg Capsule PO 100 mg Q12HR MYLES Administration Levetiracetam 1,500 mg 03/03/25 09:45 03/03/25 09:53 Levetiracetam 500 Mg Tablet PO 1,500 mg Q12HR MYLES Administration Ondansetron HCl 4 mg 03/03/25 09:36 03/03/25 09:48 Ondansetron Hcl Odt 4 Mg Tablet PO 4 mg Q6H PRN Administration Nausea And Vomiting Polyethylene Glycol 17 gm 03/02/25 09:00 03/03/25 09:30 Polyethylene Glycol 3350 17 Gm Powd.Pack PO 17 gm QAM MLYES Administration Vit/Calcium/Iron/Folic Ac 1 tab 03/02/25 09:00 03/03/25 09:29 Multivit/Min/Pren/Fol Ac/Iron Tablet PO 1 tab QAM MYLES Administration Radiology Results: ITS Impressions Ultrasound 03/02/25 13:08 IMPRESSION: 1. Single living fetus with heart rate of 155 bpm. 2. Gestational age by ultrasound of 9 weeks 6 day(s) +/- 6 day(s) with ultrasound estimated date of delivery (IRMA) of 09/29/2025.
[2025-03-03] MEDS: CEPHALEXIN 500 MG CAPSULE PO (20:19)
[2025-03-04] VITALS: PULSE 68
[2025-03-04 04:00] VITALS: PULSE 63
[2025-03-04 05:51] VITALS: BP 96/55; PULSE 61; RESP 16; TEMP 36.2; O2SAT 98
[2025-03-04 08:00] VITALS: PULSE 62
[2025-03-04] MEDS: DOCUSATE SODIUM 100 MG CAPSULE PO (08:54)
[2025-03-04] MEDS: CEPHALEXIN 500 MG CAPSULE PO (08:54)
--- NOTE | 2025-03-04 10:48 | P.DS_ITS ---
DS: Admitting Diagnosis Discharge Date 03/04/2025 Admitting Diagnosis Epilepsy DS: Discharge Diagnosis Discharge Diagnosis (1) Epileptic seizure: Code(s): G40.909 - Epilepsy, unspecified, not intractable, without status epilepticus Status: Acute Assessment and Plan: Patient here with breakthrough seizures related to medication noncompliance. She has been out of her Keppra for the past week due to losing her insurance causing her to be unable to refill her prescription. Had 3 less than 1 minute seizures at a local gas station. Given Keppra 2500 mg IV in the ED and discharged home with a prescription for Keppra. However while she was waiting for a cab to go home as she had an additional breakthrough seizure prompting admission. Has thus far not required medications for seizure cessation. Complicated by and UTI which may be lowering her seizure threshold as well. - seizure precautions - Keppra 2 g b.i.d. IV switched to po today, home dose - neurology consulted - obtain EEG (2) UTI (urinary tract infection): Qualifiers: Hematuria presence: without hematuria Urinary tract infection type: acute cystitis Qualified Code(s): N30.00 - Acute cystitis without hematuria Code(s): N39.0 - Urinary tract infection, site not specified Status: Inactive Assessment and Plan: UA equivocal for infection, does have many epithelial cells present. However she is reporting mild abdominal cramping and urinary urgency increasing suspicion for UTI. - UA: Cloudy, trace ketones, trace leuk esterase, many epithelial cells, 1+ bacteria - UC pending - previous micro reviewed - started on Ceftriaxone on 1221, continued inpatient (3) First trimester : Code(s): Z34.91 - Encounter for supervision of normal , unspecified, first trimester Status: Inactive Assessment and Plan: . LMP on 12/24/2024. IRMA 09/30/2025. Currently 9 weeks . Has not seen an OBGYN for this yet, had appointment with [facility] on Sunday. However they turned her away due to lack of insurance. She has previously followed with them due to her seizures previously complicating her pregnancies and resulting in early deliveries due to D cells related to seizure activity. Currently denies any vaginal bleeding. Does have mild abdominal cramping, however also has urinary urgency and UA equivocal for UTI. - OBGYN consulted, plan for ultrasound - reporting nausea/vomiting since onset of . Reglan scheduled due to persistence of nausea throughout the day and nighttime. Zofran for breakthrough nausea/vomiting. - daily Plan Diet: Regular GI Prophylaxis: N/a DVT Prophylaxis: SCDs IV fluids: NS 100 mL/hour x1 L Lines/Tubes: pIV Code Status: Full code DS: Summary Hospital Course Reason for hospitalization: Epilepsy Hospital Course: 29 years old female in her 1st trimester was admitted for epilepsy. Patient was not taking her Keppra probably at home. Patient was given a loading dose and then started on Keppra. Ob was consulted. Patient did not have any seizures in the hospital. Today patient is feeling better discharged home stable condition patient was to follow up with Neurology primary care and Ob as an outpatient. Status at Discharge Cognitive/behavioral status at discharge: Stable Time Spent with Patient Time attestation: Total time spent providing and/or coordinating discharge services: 30 minutes Discharge Plan Discharge Attending physician on discharge: Jeremy Estrada Consulting providers: Sorin Gloria; Nile Barreto; Tanisha Mtz Discharging Clinician: Jeremy Estrada Patient Disposition: Home Activity: as tolerated Diet: as tolerated and regular Patient Instructions: Antibiotic Form Patient Language: Telugu Stand Alone Forms: General Discharge Information Follow-up/Referrals: Nile Barreto MD [Physician, READING ASSISTANT] Discharge Medications: New PNV [id number] 90 mg iron- 1 mg-200 mg capsule 1 cap PO DAILY Qty: 30 0RF levetiracetam [Keppra] 500 mg Tablet 1,500 mg PO Q12HR Qty: 180 2RF cephalexin 500 mg Capsule 500 mg PO Q12HR Qty: 10 0RF Continued levetiracetam [Keppra] 500 mg tablet 1,500 mg PO BID 90 Days Qty: 180 0RF Discontinued ondansetron 4 mg tablet,disintegrating 4 mg PO Q8H PRN (Reason: nausea and vomiting) Qty: 12 0RF Date of admission: 03/01/25 16:28 Primary Care Provider: PHYSICIAN,USER SUPPORT SPECIALIST Admitting Provider: Antoni Vega Attending physician on admission: Antoni Vega Condition: Stable Quality VTE Prophylaxis VTE prophylaxis: mechanical ordered
--- NOTE | 2025-03-05 17:05 | WPDNEUROLOGY ---
Neurology EEG Report General Information Date of Study: 03/02/25 TEST Electroencephalogram DIAGNOSIS seizure disorder CONDITION OF RECORDING bedside recording EEG NUMBER [id number] CLINICAL HISTORY the patient is 29-year-old currently has urinary tract infection and she has been noncompliant with seizure medications due to insurance issues. Had 5 seizures in 1 day and 3 in a row and 2 seizures later on that day. The past medical history of posttraumatic stress disorder and seizure disorder and bronchial asthma. EEG DESCRIPTION During wakefulness the background activity consists of posterior dominant alpha rhythm at approximately 10-11 hertz with an amplitude of 20-40 microvolts. Anteriorly low amplitude mixed frequency activity was seen. Posterior dominant alpha rhythm is reactive to eye opening. Hyperventilation was not performed. Photic stimulation was performed during which symmetric driving response was noted at several flash rates. No abnormal changes were seen. Patient progressed to stage I and 2 sleep during which vertex waves sleep spindles and K complexes were seen. IMPRESSION This is a normal EEG obtained during awake and sleep states.
--- OUTSIDE RECORDS SUMMARY | 2025-03-09 07:46 | XMS_ITS | Encounter Summary ---
Author Organization [facility] Address [address] [place] [address] [place] [address] Care Team Providers Care Cocktail Server Name Role Phone Unavailable Primary Care Provider Unavailabl e Reason for Visit * Reason Onset Date Comments Scheduling 12/31/2019 Called to shanti devlin appt for US/MFM visit. Left v.mail for patient to return call. will schedule week of 01/19 Encounter Details Date Type Department Care Team (Late st Contact Info) Description 12/31/[address] [facility] [address] [place] [address] Deann Quintana SN Scheduling (Called to schedule [...] on file Legal Sex Female 12:37 PM [employer] Gender Identity Not on file Sexual Orientation [...] PM CDT Called to schedule appt for US/[facility] visit. Left v.mail for patient to return call. will schedule week of 01/19 documented in this encounter Plan of Treatment Not on file documented as of this encounter Visit Diagnoses Not on filedocumented in this encounter Additional Health Concerns Infection Onset Date Last Indicated Resolved Time MRSA Hx Comment:Added from external infection. Source: [facility]. 06/24/2023 documented as of this encounter
--- OUTSIDE RECORDS SUMMARY | 2025-03-09 07:46 | XMS_ITS | Patient Health Record ---
Author Organization [facility] Address [address] [place] [address] Phone [phone] Care Team Providers Care Director Diversity Name Role Phone Jaz KRISHNAN, Cindy Primary Care Provider Jazzy Carey Unavailable Chan Nieves APRN Unavailable [...] disorder), combined type (ICD_10 - F90.2) Active Loco Carbonate ER 300 MG Tablet Extended Release [...] W/U Status Risk Notes Problem Mood disorder (11795438) Mood disorder (F39) Added On:10/28 Active confirmed Problem Attention deficit hyperactivity disorder (832321481) ADHD (attention deficit hyperactivity disorder), combined type (F90.2) Added On:11/26 Active confirmed Problem Posttraumatic stress disorder (45843474) PTSD (post-traumatic stress disorder) (F43.10) Added On:10/28 Active confirmed Problem Bipolar 1 disorder (585341709) Bipolar 1 disorder (F31.9) Added On:04/10 Active confirmed Vital Signs Vital Sign Value Notes Appt Date Heart Rate 64 /min 11/26/2024 Temperature 98 degrees Fahrenheit 2024 Respiratory Rate 16 /min 11/26/2024 Blood pressure diastolic 72 mm Hg Oximetry 99 % 11/26/2024 Height 64 inches in 11/26/2024 Blood pressure systolic 122 mm Hg 11/10 Weight 147.8 lbs 11/26/2024 BMI 25.37 kg/m2 11/26/2024 Encounters Date Time Type Facility Location Provider Diagnosis 10/29/19 02:00 PM Telehealth Office Visit, New Pt., Level 5 (34357) [address] [address] Chan Nieves Mood disorder F39 and PTSD (post-traumatic stress disorder) F43.10 11/06/19 25 11:00 AM Telehealth Office Visit, Est Pt., Level 4 (10521) [address] [address] Chan Nieves Mood disorder F39 and PTSD (post-traumatic stress disorder) F43.10 11/27/19 25 01:20 PM Office Visit, Est Pt., Level 4 (40569) [address] [address] Chan Nieves Mood disorder F39 ; PTSD (post-traumatic stress disorder) F43.10 and ADHD (attention deficit hyperactivity disorder), combined type F90.2 10/21/19 25 04:59 PM Telephone Encounter [address] [address] Arireggie Habib 10/29/19 25 01:09 PM Telephone Encounter [address] [address] Cindy Habib 11/19/19 25 03:01 PM Telephone Encounter [address] [address] Chan Nieves PTSD (post-traumatic stress disorder) F43.10 11/25/19 25 10:57 AM Telephone Encounter [facility] [address] [place] [phone] Chan Nieves 11/28/19 25 08:53 AM Telephone Encounter [facility] [address] [place] [phone] Chan Nieves ADHD (attention deficit hyperactivity disorder), combined type F90.2 12/16/19 25 11:07 AM Telephone Encounter [address] [address] Chan Ezequiel ADHD (attention deficit hyperactivity disorder), combined type F90.2 12/19/19 10:47 AM Telephone Encounter [address] [place] [address] Jazzy Carey Assessments Encounter Date Diagnosis (ICD [...] number. 11/05/2024 Mood disorder (ICD-10 - F39) 11/26/2024 Mood disorder (ICD-10 - F39) Client [...] given handout on intensive outpatient programming at [facility]. Will refer to in house therapy dept as well with trauma focus. 11/27/2024 ADHD (attention deficit hyperactivity disorder), combined type (ICD-10 - F90.2) 12/15/2024 ADHD (attention deficit hyperactivity disorder), combined type (ICD-10 - F90.2) 10/28/2024 PTSD (post-traumatic stress disorder) (ICD-10 - [...] support calls and client given crisis number. 11/18/2024 PTSD (post-traumatic stress disorder) (ICD-10 - F43.10) 11/26/2024 PTSD (post-traumatic stress disorder) (ICD-10 - [...] given handout on intensive outpatient programming at [facility]. Will refer to in house therapy dept as well with trauma focus. 11/05/2024 PTSD (post-traumatic stress disorder) (ICD-10 - F43.10) 11/26/2024 ADHD (attention deficit hyperactivity disorder), combined [...] given handout on intensive outpatient programming at [facility]. Will refer to in house therapy dept as well with trauma focus. 10/28/2024 Other Discussed sleep hygiene and caffeine [...] number to the 24-hour crisis line at [facility]. Questions addressed. Client verbalized understanding of all [...] number to the 24-hour crisis line at [facility]. Questions addressed. Client verbalized understanding of all [...] number to the 24-hour crisis line at [facility]. Questions addressed. Client verbalized understanding of all [...] given handout on intensive outpatient programming at [facility]. Will refer to in house therapy dept as well with trauma focus. Plan Of Treatment No Information Insurance Providers Payer Name Payer Address Payer Phone Subscriber Number Group Number Insured Name Patient Relationship to Insured Coverage Start Date Coverage End Date [facility] Health Plan [address] [place] [address] [id number] Liseth Singh Self - patient is the insured 4 MEDICAID [address] [place] [address] [id number] Liseth Singh Self - patient is the insured 6 4 [facility] Telehealth [address] [place] [address] [id number] Liseth Singh Self - patient is the insured 5 Medical (General) History Surgical History Surgery Date(Month/Year) endometrosis laposcopy Hospitalization History Reason Date(Month/Year) MH Seizures
--- OUTSIDE RECORDS SUMMARY | 2025-03-09 07:46 | XMS_ITS | Clinical Summary ---
Author Organization [facility] Address [address] [place] [address] Care Team Providers Care Hospice Home Health Aide Name Role Phone Unavailable Primary Care Provider Unavailabl e Source Comments [facility],non-owned Affiliates and Associated Physician Practices is amultiple site organization consisting of ambulatory clinics and hospital sitesin [place], [place], [place] and [place]. This disclosure is being madepursuant to the Care Everywhere program and may not contain all information available regarding this patient. Last updated 17.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 [facility]2017 [employer] form completed. Diapers given. 05/27/2020 [...] acetylcysteine (8400 mg) and then transferred to [facility] where she was started on oral [...] further night and was [facility] for treatment of her [...] Recorded Patient Health Questionnaire-2 Score 4 02/22/2024 [facility] - Occupational Stress [...] place to sleep or slept in a snf (including now)? No 11/26/2023 [place] Depression Scale Answer Date Recorded [place] Depression Scale Total 22 01/18/2024 The thought [...] any time in the past 12 m [facility], were you homeless or living in a snf (including now)? No 02/22/2024 Education Answer Date Recorded What is the highest level of school you have completed or the highest degree you have received? 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 MICROBIOLOG[facility] Microbiology MISCELLANEOUS SAMPLES / Unknown Collection / Unknown 11/22/2023 12:04 PM CDT 11/22/2023 12:58 PM CDT us Jailene Garvin APRN-MOTORSPORTS TECHNICIAN LAB - MICROBIOLOGY O RDERABLES Final Result [facility]CRO[facility]OLOG[facility] [address] [place] [address], [facility] [phone] * (ABNORMAL) GTT 3 HR (100G) GESTATIONAL DIAGNOSTIC (10/15/2023 10:46 AM CDT) Glucose Dose Gestational 100 gm 10/15/2023 2:17 PM CDT [facility] Gestational GTT Fasting 76 70 - 105 mg/dL 10/15/2023 2:17 PM CDT [facility] Gestational GTT 1 HR 180(H) 54 - <180 mg/dL 10/15/2023 2:17 PM CDT [facility] Gestational GTT 2 HR 131 54 - <155 mg/dL 10/15/2023 2:17 PM CDT [facility] Gestational GTT 3 HR 109 54 - <140 mg/dL 10/15/2023 2:17 PM CDT [facility] Blood BLOOD SPECIMEN / Unknown Venipuncture / Unknown 10/15/2023 10:46 AM CDT 10/15/2023 11:08 AM CDT us Augustine Null MD LAB - CHEMISTRY ORDERABLES Cristy l Result [facility] [address] [place] [address] * HIV-1 HIV-2 ANTIBODY + HIV P24 AG PANEL (10/08/2023 12:31 PM CDT) HIV1/2 Ab + P24 Ag Non Reactive Non Reactive 10/08/2023 1:37 PM CDT [facility] Blood BLOOD SPECIMEN / Unknown Venipuncture / Unknown 10/08/2023 12:31 PM CDT 10/08/2023 12:52 PM CDT Narrative [facility] - 10/08/2023 1:37 PM CDT No Laboratory evidence of HIV infection. Augustine Null MD LAB - CHEMISTRY ORDERABLES Cristy l Result Performing Organization Address [facility] Co de Phone Number [facility] [address] [place] [phone] * HEPATITIS C ANTIBODY (09/26/2023 4:15 AM CDT) [facility] HCV Antibody Screen Non Reactive Non Reactive 09/26/2023 5:19 AM CDT [facility] Blood BLOOD SPECIMEN / Unknown Lab Venipuncture / Unknown 09/26/2023 4:15 AM CDT 09/26/2023 4:24 AM CDT Narrative [facility] - 09/26/2023 5:19 AM CDT Non Reactive - Antibodies to Hepatitis C virus (HCV) were not detected, result does not exclude early acute HCV infection. Augustine Null MD LAB - CHEMISTRY ORDERABLES Cristy l Result Performing Organization Address [facility] de Phone Number [facility] [address] [place] [phone] from Last 3 Months or Most Recently Relevant to Health Maintenance Additional Health Concerns Infection Onset Date Last Indicated MRSA Hx Comment:Added from external infection. Source: [facility]. 06/24/2023 Advance Directives * Full Code (Latest [...]
--- OUTSIDE RECORDS SUMMARY | 2025-03-09 07:46 | XMS_ITS | Clinical Summary ---
Author Organization [facility] Address [address] [place] [address] Care Team Providers Care Tie Buyer Name Role Phone None, Provider MD Unavailable [...] for Nausea. 20 tablet 02/05/20 25 Active Active Problems Problem Noted Date Diagnosed [...] Department Care Team Description 02/04/2025 9:31 AM RECOVERY COACH - 02/04/2025 2:36 PM [facility] Emergency [facility] Room [id number] [place] [id number] Celine Heredia MD Seizure- Prior History Of [...] slept in a snf (including now)? No 08/18/2022 Housing Stability Vital [...] Sex Assigned at Female 04/09/2024 1:42 PM RECOVERY COACH Legal Sex Female 7:43 PM CDT Gender Identity Female 07/24/2024 7:30 PM CDT Sexual Orientation Straight 07/24/2024 7: 30 PM CDT Last Filed Vital Signs Vital Sign Reading Time Taken Comments Blood Pressure 96/64 02/04/2025 2:34 PM RECOVERY COACH Pulse 64 02/04/2025 2:34 PM RECOVERY COACH Temperature 36.4 C (97.5 F) 02/04/2025 2:34 PM RECOVERY COACH Respiratory Rate 18 02/04/2025 2:34 PM RECOVERY COACH Oxygen Saturation 99% 02/04/2025 2:34 PM RECOVERY COACH Inhaled Oxygen Concentration - - Weight 64.4 kg (142 lb) 02/04/2025 9:34 AM RECOVERY COACH Height 162.6 cm (5' 4) 02/04/2025 9:34 AM RECOVERY COACH Body Mass Index 24.37 02/04/2025 9:34 AM RECOVERY COACH Plan of Treatment Health Maintenance Due Date [...] - 3-dose SCDM series) 2022 COVID-19 Vaccine ( season) 2024 12/21/2020, 11/26/2020 Influenza Adult (#1) [...] of home safety measures Lifestyle No Sonam Hotl RN Additional Health Concerns Infection Onset Date Last Indicated MRSA Comment:06/24/23 urine (NOLVIA) 06/24/2023 06/24/2023 Insurance MEDICAID C/O [employer] [place]EVE [place]DEZ [id number] Advance Directives * Full Code (Latest Code [...] 10:50 AM 09/16/2019 3:43 PM Care Teams Tie Buyer Relationship Specialty Start Date End Date None, Provider, PCP - General UNKNOWN PHYSICIAN SPECIALTY 08/31/23 None, ProviderMD 08/17/22 Alexy Ochoa MD [address] [address] [facility] 08/31/23 None, ProviderMD UNKNOWN PHYSICIAN SPECIALTY 09/22/24
== END 2025-03-04 12:25 | disposition home or self-care (01) ==
LOC: ANHED 16:32 → ANH3MED 20:04
PROVIDERS: Admitting Provider Family Medicine; Emergency Provider Student in an Organized Health Care Education/Training Program; Visit Provider Internal Medicine
DX: O99.351 Diseases of the nervous system complicating pregnancy, first trimester (principal); G40.909 Epilepsy, unspecified, not intractable, without status epilepticus; O23.41 Unspecified infection of urinary tract in pregnancy, first trimester; N30.00 Acute cystitis without hematuria; Z91.141 Patient's other noncompliance with medication regimen due to financial hardship; Z3A.09 9 weeks gestation of pregnancy
CPT/HCPCS: 76801; 80177; 87086; 95816; 96365; 96367; 96374; 96375; 96376; 99285; A9270; G0378; G0379; J0696; J1953; J2405; J2765